=== PATIENT | female | born 1955 | race Caucasian/White ===

== ENCOUNTER → 2019-05-25 09:39 | Outpatient (CLI) | payer OTHER, SELFPAY ==
--- NOTE | 2019-05-25 09:41 | BI_ITS ---
MAMMOGRAPHY - BILATERAL SCREENING REASON FOR EXAM: Female, 63 years old. Routine annual screening examination. PERTINENT HISTORY: Non-contributory. TECHNIQUE: Digital bilateral breast elan (3D mammographic acquisition) in the CC and MLO projections. 2-D mediolateral oblique (MLO) and craniocaudad (CC) views of both breasts were obtained. CAD: Full Field Digital Mammography with Computer Added Detection was performed. COMPARISON: Comparison is made with prior study September 23, 2017 and August 05, 2015. FINDINGS: Breast Composition: The breasts are almost entirely fatty. There are no dominant masses or suspicious calcifications. Stable 5 mm well-defined nodule in the upper outer aspect of the left breast. No other significant abnormalities are identified. There has been no significant change since the prior study. BI/SCREEN MAMM (CAD) W/ELAN BILAT IMPRESSION: Stable bilateral screening mammogram. Correlation with ultrasound of the left breast is recommended for further evaluation. ASSESSMENT CATEGORY: BIRADS Category 0: Incomplete. Need additional imaging evaluation. A letter regarding these results will be sent to the patient by the facility within 30 days. Approximately 10% of breast cancers are not detected by mammography. A normal mammogram should not delay biopsy of a clinically suspicious abnormality. [id number] Electronically Signed: Raza Blandon, at 10:46 EDT , Service support ,
== END ==
PROVIDERS: Family Provider Family Medicine; PCP Family Medicine; Referring Provider Family Medicine; Visit Provider Family Medicine
DX: Z12.31 Encounter for screening mammogram for malignant neoplasm of breast (principal)
CPT/HCPCS: 77063; 77067

== ENCOUNTER → 2019-05-31 14:44 | Outpatient (CLI) | payer OTHER, SELFPAY ==
--- NOTE | 2019-05-31 14:46 | US_ITS ---
STUDY: ULTRASOUND BREAST - LEFT REASON FOR EXAM: Female, 63 years old. Abnormal screening mammogram. TECHNIQUE: Axial and longitudinal images of the LEFT breast were performed with a high resolution ultrasound transducer. COMPARISON: Comparison is made with prior mammogram dated May 25, 2019. FINDINGS: LEFT Breast: The mammographic abnormality corresponds to a 6 mm x 5 mm x 4 mm benign appearing lymph node. This is at the 2:00 position in the breast at 8 cm from nipple. Routine mammographic follow-up is recommended. US/Breast Limited Unilateral IMPRESSION: The mammographic abnormality corresponds to a 6 mm x 5 mm x 4 mm well-defined hypoechoic nodule with a central echogenic hilum in keeping with a lymph node. ASSESSMENT CATEGORY: BIRADS Category 2: Benign. A letter regarding these results will be sent to the patient by the facility within 30 days. Electronically Signed: Raza Blandon, at 13:07 EDT , Service support ,
== END ==
PROVIDERS: Family Provider Family Medicine; PCP Family Medicine; Referring Provider Family Medicine; Visit Provider Family Medicine
DX: N63.21 Unspecified lump in the left breast, upper outer quadrant (principal)
CPT/HCPCS: 76642

== ENCOUNTER → 2020-04-08 | Outpatient (CLI) | payer OTHER, SELFPAY ==
[2020-01-18 09:08] VITALS: BMI 37.7
[2020-04-08 13:04] LABS: T4 Free Direct 1.14 ng/dL (0.76-1.46); Thyroid Stim Hormone (TSH) 0.72 uIU/mL (0.358-3.74)
== END | disposition home or self-care (01) ==
PROVIDERS: PCP Family Medicine; Referring Provider Internal Medicine Endocrinology, Diabetes & Metabolism; Visit Provider Internal Medicine Endocrinology, Diabetes & Metabolism
DX: E03.9 Hypothyroidism, unspecified (principal)
CPT/HCPCS: 36415; 84439; 84443

== ENCOUNTER → 2020-07-03 | Outpatient (CLI) | payer OTHER, SELFPAY ==
[2020-04-17 09:33] VITALS: BMI 37.7
--- NOTE | 2020-07-03 08:16 | BI_ITS ---
MAMMOGRAPHY - BILATERAL SCREENING REASON FOR EXAM: Female, 65 years old. Routine annual screening examination. PERTINENT HISTORY: Non-contributory. TECHNIQUE: Digital bilateral breast elan (3D mammographic acquisition) in the CC and MLO projections. 2-D mediolateral oblique (MLO) and craniocaudad (CC) views of both breasts were obtained. CAD: Full Field Digital Mammography with Computer Added Detection was performed. COMPARISON: Comparison is made with prior study dated 05/25/2019 and 06/24/2017 FINDINGS: Breast Composition: The breasts are almost entirely fatty. There are no dominant masses or suspicious calcifications. Stable 5 mm well-defined nodule in the upper lateral aspect of the left breast. This most likely represents a small intramammary lymph node. No other significant abnormalities are identified. There has been no significant change since the prior study. BI/SCREEN MAMM (CAD) W/ELAN BILAT IMPRESSION: Stable bilateral screening mammogram. Yearly follow-up mammogram recommended. (A) ASSESSMENT CATEGORY: BIRADS Category 2: Benign. A letter regarding these results will be sent to the patient by the facility within 30 days. Approximately 10% of breast cancers are not detected by mammography. A normal mammogram should not delay biopsy of a clinically suspicious abnormality. [id number] Electronically Signed: Raza Blandon, at 9:30 EDT , Service support ,
== END | disposition home or self-care (01) ==
LOC: OPBI 08:13
PROVIDERS: PCP Family Medicine; Referring Provider Family Medicine; Visit Provider Family Medicine
DX: Z12.31 Encounter for screening mammogram for malignant neoplasm of breast (principal)
CPT/HCPCS: 77063; 77067

== ENCOUNTER → 2020-08-21 | Outpatient (CLI) | payer OTHER, SELFPAY ==
[2020-08-21 08:52] VITALS: BMI 34.2
[2020-08-21 12:56] LABS: Vitamin D,25 Hydroxy 62.7 ng/mL
[2020-08-21 13:06] LABS: ALB/GLOB Ratio 0.7 RATIO (0.9-2.4); AST(SGOT) 32 U/L (15-37); Alanine Aminotransfer ALT/SGPT 39 U/L (13-56); Alkaline Phosphatase 94 U/L (45-117); Anion Gap 8 (5-15); BUN 13 mg/dL (7-18); BUN/Creat Ratio 14.7 RATIO (10-20); Chloride 102 mmol/L (98-107); Cholesterol 308 mg/dL (200); Creatinine, Serum 0.88 mg/dL (0.55-1.02); EST Glomerular Filtration Rate 68 mL/min (>60); Est Glom Filt Rate - Afr Amer 82 mL/min (>60); Globulin 4.2 g/dL (2.2-4.2); Glucose 155 mg/dL (74-106); High Density Lipoprotein 45 mg/dL; Potassium 3.6 mmol/L (3.5-5.1); Protein, Total 7.2 g/dL (6.4-8.2); Sodium Level 138 mmol/L (136-145); Thyroid Stim Hormone (TSH) 0.79 uIU/mL (0.358-3.74); Triglycerides 395 mg/dL; Very Low Density Lipoprotein 79 mg/dL (5-40)
[2020-08-21 13:12] LABS: Microalbumin:Creatinine Ratio 13.2 mg/g CRE (<30 mg/g CRE)
== END | disposition home or self-care (01) ==
LOC: BIMLAB 09:44
PROVIDERS: PCP Family Medicine; Referring Provider Internal Medicine Endocrinology, Diabetes & Metabolism; Visit Provider Internal Medicine Endocrinology, Diabetes & Metabolism
DX: E03.9 Hypothyroidism, unspecified (principal); E11.9 Type 2 diabetes mellitus without complications; E55.9 Vitamin D deficiency, unspecified; I10 Essential (primary) hypertension
CPT/HCPCS: 36415; 80053; 80061; 82043; 82306; 82570; 84443

== ENCOUNTER → 2021-07-21 08:50 | Outpatient (CLI) | payer OTHER, SELFPAY ==
[2021-07-21 08:53] LABS: Mucous, Urine 0 SEEN /hpf (<or=2+); Red Blood Cells-Urine 0 SEEN /hpf (0-5); White Blood Cells 0 SEEN /hpf (0-5)
[2021-07-21 12:32] LABS: Color, Urine Yellow (Yellow); Glucose, Dipstick 1000 mg/dl (Normal); Ketone-Dipstick Negative (Negative); Leukocyte Esterase-Dipstick Negative /ul (Negative); Nitrite-Dipstick Negative (Negative); Occult Blood-Urine Negative /ul (Negative); Protein-Dipstick Negative (Negative); Urine Bilirubin Dipstick Negative (Negative); Urine Clarity Clear (Clear); Urine Urobilinogen Normal (Normal)
[2021-07-21 12:53] LABS: Vitamin D,25 Hydroxy 53.8 ng/mL
[2021-07-21 13:01] LABS: ALB/GLOB Ratio 0.7 RATIO (0.9-2.4); AST(SGOT) 22 U/L (15-37); Alanine Aminotransfer ALT/SGPT 34 U/L (13-56); Albumin, Serum 2.9 g/dL (3.2-5.0); Alkaline Phosphatase 81 U/L (45-117); Anion Gap 10 (5-15); BUN 15 mg/dL (7-18); Calcium,Total 9.3 mg/dL (8.5-10.1); Chloride 104 mmol/L (98-107); Cholesterol 325 mg/dL (200); Creatinine, Serum 0.79 mg/dL (0.55-1.02); EST Glomerular Filtration Rate 77 mL/min (>60); Est Glom Filt Rate - Afr Amer 93 mL/min (>60); Globulin 4.1 g/dL (2.2-4.2); Glucose 152 mg/dL (74-106); High Density Lipoprotein 42 mg/dL; Potassium 3.8 mmol/L (3.5-5.1); Sodium Level 140 mmol/L (136-145); T4 Free Direct 1.05 ng/dL (0.76-1.46); Thyroid Stim Hormone (TSH) 0.59 uIU/mL (0.358-3.74); Triglycerides 429 mg/dL
[2021-07-21 13:12] LABS: Bacteria 1+ /hpf (None Seen); Squamous Epithelial Cells - UA 0-5 SEEN /hpf (5-10)
[2021-07-21 13:27] LABS: Microalbumin,Random Urine < 5.0 mg/L (NO RANGE EST.)
== END ==
PROVIDERS: PCP Family Medicine; Referring Provider Internal Medicine Endocrinology, Diabetes & Metabolism; Visit Provider Internal Medicine Endocrinology, Diabetes & Metabolism
DX: E03.9 Hypothyroidism, unspecified (principal); E11.42 Type 2 diabetes mellitus with diabetic polyneuropathy; E78.2 Mixed hyperlipidemia; I10 Essential (primary) hypertension; E55.9 Vitamin D deficiency, unspecified
CPT/HCPCS: 36415; 80053; 80061; 81001; 82043; 82306; 82570; 84439; 84443

== ENCOUNTER → 2021-10-13 09:53 | Outpatient (CLI) | payer OTHER, SELFPAY ==
--- NOTE | 2021-10-13 09:56 | BI_ITS ---
MAMMOGRAPHY - BILATERAL SCREENING REASON FOR EXAM: Female, 66 years old. Routine annual screening examination. PERTINENT HISTORY: Non-contributory. TECHNIQUE: Digital bilateral breast elan (3D mammographic acquisition) in the CC and MLO projections. 2-D mediolateral oblique (MLO) and craniocaudad (CC) views of both breasts were obtained. CAD: Full Field Digital Mammography with Computer Added Detection was performed. COMPARISON: Comparison is made with prior study dated 07/03/2020 and 05/25/2019. FINDINGS: Breast Composition: The breasts are almost entirely fatty. There are no dominant masses or suspicious calcifications. Stable 5 mm well-defined nodule in the upper lateral aspect of the left breast. Prior sonogram of the left breast dated 05/31/2019 demonstrated to be a small lymph node. No other significant abnormalities are identified. There has been no significant change since the prior study. BI/SCRN MAMM (CAD)W/ELAN BILAT IMPRESSION: Stable bilateral screening mammogram. Yearly follow-up mammogram recommended. (A) ASSESSMENT CATEGORY: BIRADS Category 2: Benign. A letter regarding these results will be sent to the patient by the facility within 30 days. Approximately 10% of breast cancers are not detected by mammography. A normal mammogram should not delay biopsy of a clinically suspicious abnormality. [id number] Electronically Signed: Raza Blandon MD at 11:30 EST , Service support ,
== END ==
PROVIDERS: PCP Family Medicine; Referring Provider Family Medicine; Visit Provider Family Medicine
DX: Z12.31 Encounter for screening mammogram for malignant neoplasm of breast (principal)
CPT/HCPCS: 77063; 77067

== ENCOUNTER → 2022-11-26 | Outpatient (CLI) | payer OTHER, SELFPAY ==
--- NOTE | 2022-11-26 08:13 | BI_ITS ---
MAMMOGRAPHY - BILATERAL SCREENING REASON FOR EXAM: Female, 67 years old. Routine annual screening examination. PERTINENT HISTORY: Non-contributory. TECHNIQUE: Digital bilateral breast elan (3D mammographic acquisition) in the CC and MLO projections. 2-D mediolateral oblique (MLO) and craniocaudad (CC) views of both breasts were obtained. CAD: Full Field Digital Mammography with Computer Added Detection was performed. COMPARISON: Comparison is made with prior study dated 10/13/2021 and 07/03/2020. FINDINGS: Breast Composition: The breasts are almost entirely fatty. There are no dominant masses or suspicious calcifications. Stable 5 mm well-defined nodule in the upper lateral aspect of the left breast. This was demonstrated to be a small lymph node on prior sonogram. No other significant abnormalities are identified. There has been no significant change since the prior study. BI/SCRN MAMM (CAD)W/ELAN BILAT IMPRESSION: Stable bilateral screening mammogram. Yearly follow-up mammogram recommended. (A) ASSESSMENT CATEGORY: BIRADS Category 2: Benign. A letter regarding these results will be sent to the patient by the facility within 30 days. Approximately 10% of breast cancers are not detected by mammography. A normal mammogram should not delay biopsy of a clinically suspicious abnormality. [id number] Electronically Signed: Raza Blandon MD at 9:36 EST ,
== END | disposition home or self-care (01) ==
LOC: OPBI 08:11
PROVIDERS: PCP Family Medicine; Referring Provider Registered Nurse; Visit Provider Registered Nurse
DX: Z12.31 Encounter for screening mammogram for malignant neoplasm of breast (principal)
CPT/HCPCS: 77063; 77067

== ENCOUNTER → 2023-12-02 | Outpatient (CLI) | payer OTHER, SELFPAY ==
--- NOTE | 2023-12-02 08:20 | BI_ITS ---
MAMMOGRAPHY - BILATERAL SCREENING REASON FOR EXAM: Female, 68 years old. Routine annual screening examination. PERTINENT HISTORY: Non-contributory. TECHNIQUE: Digital bilateral breast elan (3D mammographic acquisition) in the CC and MLO projections. 2-D mediolateral oblique (MLO) and craniocaudad (CC) views of both breasts were obtained. CAD: Full Field Digital Mammography with Computer Added Detection was performed. COMPARISON: Comparison is made with prior study dated November 26, 2022 and October 13, 2021. FINDINGS: Breast Composition: There are scattered areas of fibroglandular density. There are no dominant masses or suspicious calcifications. Stable 5 mm well-defined nodule upper outer aspect of the left breast. Stable calcified nodule in the central medial portion of the right breast. No other significant abnormalities are identified. There has been no significant change since the prior study. BI/SCRN MAMM (CAD)W/ELAN BILAT IMPRESSION: Stable bilateral screening mammogram. Yearly follow-up mammogram recommended. (A) ASSESSMENT CATEGORY: BIRADS Category 2: Benign. A letter regarding these results will be sent to the patient by the facility within 30 days. Approximately 10% of breast cancers are not detected by mammography. A normal mammogram should not delay biopsy of a clinically suspicious abnormality. [id number] Electronically Signed: Raza Blandon MD at 8:59 EST ,
--- OUTSIDE RECORDS SUMMARY | 2023-12-02 08:48 | XMS RPT_ITS | CCD ---
Author Name Unknown Address [address] [facility] [facility] [address] [place] [address] Organization [facility] Care Team Providers Care Flow Worker Name Role Phone Nilsa Shahid MD Primary Care Provider NILSA SHAHID Primary Care Unavailable NILSA SHAHID Referring Unavailable FATOUMATA LIGHT Referring Unavailable NILSA SHAHID Primary Care Unavailable NILSA SHAHID Primary Care Unavailable NILSA SHAHID Primary Care Unavailable NILSA SHAHID Attending Unavailable SHANTELLE BEAVER Referring Unavailable NILSA SHAHID Primary Care Unavailable BRIAN PAGE Attending Unavailable NILSA SHAHID Attending Unavailable NILSA SHAHID Primary Care Unavailable NILSA SHAHID Attending Unavailable NILSA SHAHID Primary Care Unavailable YANICK MALDONADO Referring Unavailable NILSA SHAHID Primary Care Unavailable NILSA SHAHID Attending Unavailable NILSA SHAHID Primary Care Unavailable SHANTELLE BEAVER Attending Unavailable NILSA SHAHID Primary Care Unavailable NILSA SHAHID Primary Care Unavailable Allergies Allergy Classification Reported Allergen(s) Allergy Type Date of Onset Reaction(s) Facility (20 sources) amLODIPine; Translations: [AMLODIPINE BESYLATE] Drug Allergy 04-03-2014 Cough [facility] Work Phone: (20 sources) Lisinopril; Translations: [LISINOPRIL] Drug Allergy 02-16-2013 Cough [facility] Work Phone: (5 sources) Penicillins; Translations: [PENICILLINS] Propensity to adverse reactions 06-04-2005 Rash [facility] Work Phone: (20 sources) rosuvastatin; Translations: [ROSUVASTATIN] Drug Allergy 05-12-2019 Myalgia [facility] Work Phone: (17 sources) Penicillins Propensity to adverse reactions 06-04-2005 Rash [facility] Work Phone: Medications Current Medications Medication Drug Class(es) Dates Sig (Normalized) Sig (Original) doxycycline hyclate 100 mg oral tablet (1 source) Tetracycline-cla ss Drug Start: 10-07-2023 End: 10-14-2023 take 1 tablet by mouth twice daily doxycycline (VIBRA-TABS) 100 mg tablet Indications: Sinobronchitis Take 1 tablet by mouth two times a day for 7 days. 14 tablet 0 10/07/2023 10/14/2023 Active Completed/Discontinued Medications Medication Drug Class(es) Dates Sig (Normalized) Sig (Original) acetaminophen 325 mg / HYDROcodone bitartrate 5 mg oral tablet (20 sources) Opioid Agonist take 1 tablet by julio th every eight hours as needed HYDROcodone-acetami nophen 5-325 mg per tablet Take 1 tablet by mouth every 8 hours as needed. 0 Active Problems Active Problems Problem Classification Problem Date Documented Da te Episodic/Chronic Adjustment disorders (1 source) Grief finding; Translations: [Adjustment disorder with depressed mood] Chronic Diabetes mellitus without complication (20 sources) Type 2 diabetes mellitus without complication; Translations: [Type 2 diabetes mellitus without complications] Onset: 4 02-23-2021 Chronic Disorders of lipid metabolism (2 sources) Hypertriglyceridemia; Translations: [Pure hyperglyceridemia] Onset: 3 Chronic Esophageal disorders (20 sources) Gastroesophageal reflux disease; Translations: [Gastro-esophageal reflux disease without esophagitis] 06-01-2016 Chronic Essential hypertension (20 sources) Hypertensive disorder; Translations: [Essential (primary) hypertension] Onset: 3 Chronic Gout and other crystal arthropathies (20 sources) Chronic gouty arthritis; Translations: [Idiopathic chronic gout, multiple sites, without tophus (tophi)] Onset: 4 Chronic Immunizations and screening for infectious disease (1 source) Suspected disease caused by 2019-nCoV; Translations: [Suspected COVID-19 virus infection] Episodic Nutritional deficiencies (20 sources) Vitamin D deficiency; Translations: [Vitamin D deficiency, unspecified] Onset: 9 05-12-2019 Chronic Other connective tissue disease (20 sources) Fibromyalgia; Translations: [Fibromyalgia] 06-11-2017 Episodic Other gastrointestinal disorders (3 sources) Stool DNA-based colorectal cancer screening positive; Translations: [Other fecal abnormalities] Episodic Other lower respiratory disease (1 source) Cough; Translations: [Acute cough] 09-14-2023 Episodic Other nutritional; endocrine; and metabolic disorders (11 sources) Body mass index 30+ - obesity; Translations: [Body mass index (BMI) 39.0-39.9, adult] Onset: 4 04-03-2014 Chronic Other nutritional; endocrine; and metabolic disorders (1 source) Obesity; Translations: [Obesity, unspecified] Chronic Other nutritional; endocrine; and metabolic disorders (4 sources) Obese class II; Translations: [Obesity, unspecified] Onset: 3 09-05-2023 Chronic Other nutritional; endocrine; and metabolic disorders (1 source) Obesity, unspecified; Translations: [Class 2 obesity in adult, unspecified BMI, unspecified obesity type, unspecified whether serious comorbidity present] Onset: 3 Chronic Other screening for suspected conditions (not mental disorders or infectious disease) (4 sources) Patient encounter status; Translations: [Encounter for screening for malignant neoplasm of colon] Episodic Other upper respiratory infections (1 source) Chronic sinusitis; Translations: [Chronic sinusitis, unspecified] 10-07-2023 Chronic Other upper respiratory infections (1 source) Sore throat symptom; Translations: [Acute pharyngitis, unspecified] 09-14-2023 Episodic Residual codes; unclassified (1 source) Postmenopausal state; Translations: [Asymptomatic menopausal state] Episodic Thyroid disorders (20 sources) Hypothyroidism; Translations: [Hypothyroidism, unspecified] Onset: 7 08-12-2015 Chronic Unclassified (1 source) Acute cough; Translations: [Acute cough] Onset: 3 Past or Other Problems Problem Classification Problem Date Documented Da te Episodic/Chronic Fluid and electrolyte disorders (20 sources) Hypokalemia; Translations: [Hypokalemia] Onset: 07-21-2019 07-21-2019 Episodic Other connective tissue disease (20 sources) Calcaneal spur; Translations: [Calcaneal spur, unspecified foot] Onset: 01-27-2012 01-27-2012 Episodic Other gastrointestinal disorders (1 source) Other fecal abnormalities; Translations: [Positive colorectal cancer screening using Cologuard test] Onset: 03-07-2023 Episodic Residual codes; unclassified (1 source) Other specified personal risk factors, not elsewhere classified; Translations: [23-polyvalent pneumococcal polysaccharide vaccine indication of diabetes in patient 6 to 64 years of age (HCC)] Onset: 11-25-2022 Episodic Results Test Name Value Interpretation Reference Range Facil ity Vital Signs Date Time Vital Sign Value Performing Clinician Shelby kuo 10-07-2023 17:05-0500 Body temperature 99.3 [degF] Melonie Praisler-Wood WAY INSPECTOR.AGRICULTURAL EQUIPMENT SALES ENGINEER Work Phone: [facility] 10-07-2023 17:05-0500 Body weight 100.97 kg Melonie Praisler-Wood WAY INSPECTOR.AGRICULTURAL EQUIPMENT SALES ENGINEER Work Phone: [facility] 10-07-2023 17:05-0500 Diastolic blood pressure 73 mm[Hg] Melonie Praisler-Wood WAY INSPECTOR.AGRICULTURAL EQUIPMENT SALES ENGINEER Work Phone: [facility] 10-07-2023 17:05-0500 Heart rate 95 /min Melonie Praisler-Wood WAY INSPECTOR.AGRICULTURAL EQUIPMENT SALES ENGINEER Work Phone: [facility] 10-07-2023 17:05-0500 Respiratory rate 18 /min Melonie Praisler-Wood WAY INSPECTOR.AGRICULTURAL EQUIPMENT SALES ENGINEER Work Phone: [facility] 10-07-2023 17:05-0500 SaO2% (BldA) [Mass fraction] 97 % Melonie Praisler-Wood WAY INSPECTOR.AGRICULTURAL EQUIPMENT SALES ENGINEER Work Phone: [facility] 10-07-2023 17:05-0500 Systolic blood pressure 155 mm[Hg] Melonie Praisler-Wood WAY INSPECTOR.AGRICULTURAL EQUIPMENT SALES ENGINEER Work Phone: [facility] 09-14-2023 10:28-0500 Body temperature 98.1 [degF] Maria Antonia Morris WAY INSPECTOR.AGRICULTURAL EQUIPMENT SALES ENGINEER Work Phone: [facility] 09-14-2023 10:28-0500 Body weight 101.[address] INSPECTOR.AGRICULTURAL EQUIPMENT SALES ENGINEER Work Phone: [facility] 09-14-2023 10:28-0500 Diastolic blood pressure 74 mm[Hg] Maria Antonia Morris WAY INSPECTOR.AGRICULTURAL EQUIPMENT SALES ENGINEER Work Phone: [facility] 09-14-2023 10:28-0500 Heart rate 97 /min Maria Antonia Morris WAY INSPECTOR.AGRICULTURAL EQUIPMENT SALES ENGINEER Work Phone: [facility] 09-14-2023 10:28-0500 SaO2% (BldA) [Mass fraction] 98 % Maria Antonia Morris WAY INSPECTOR.AGRICULTURAL EQUIPMENT SALES ENGINEER Work Phone: [facility] 09-14-2023 10:28-0500 Systolic blood pressure 138 mm[Hg] Maria Antonia Morris WAY INSPECTOR.AGRICULTURAL EQUIPMENT SALES ENGINEER Work Phone: [facility] 09-05-2023 09:10-0500 Diastolic blood pressure 70 mm[Hg] Nilsa Shahid MD Work Phone: [facility] 09-05-2023 09:10-0500 Systolic blood pressure 132 mm[Hg] Nilsa Shahid MD Work Phone: [facility] 09-05-2023 08:38-0500 Body weight 101.61 kg Nilsa Shahid MD Work Phone: [facility] 09-05-2023 08:38-0500 Heart rate 78 /min Nilsa Shahid MD Work Phone: [facility] 09-05-2023 08:38-0500 SaO2% (BldA) [Mass fraction] 98 % Nilsa Shahid MD Work Phone: [facility] 03-07-2023 08:19-0400 Body height 170.2 cm Brian Kaylee PA-C Work Phone: [facility] 03-07-2023 08:19-0400 Body temperature 97.2 [degF] Brian Kaylee PA-C Work Phone: [facility] 03-07-2023 08:19-0400 Body weight 97.34 kg Brian Kaylee PA-C Work Phone: [facility] 03-07-2023 08:19-0400 Diastolic blood pressure 76 mm[Hg] Brian Kaylee PA-C Work Phone: [facility] 03-07-2023 08:19-0400 Heart rate 82 /min Brian Ramirezf PA-C Work Phone: [facility] 03-07-2023 08:19-0400 SaO2% (BldA) [Mass fraction] 96 % Brian Ramirezf PA-C Work Phone: [facility] 03-07-2023 08:19-0400 Systolic blood pressure 132 mm[Hg] Brian Ramirezf PA-C Work Phone: [facility] 03-02-2023 08:30-0400 Body height 170.2 cm Nilsa Shahid MD Work Phone: [facility] 03-02-2023 08:30-0400 Body weight 97.34 kg Nilsa Shahid MD Work Phone: [facility] 03-02-2023 08:30-0400 Diastolic blood pressure 82 mm[Hg] Nilsa Shahid MD Work Phone: [facility] 03-02-2023 08:30-0400 Heart rate 78 /min Nilsa Shahid MD Work Phone: [facility] 03-02-2023 08:30-0400 Systolic blood pressure 142 mm[Hg] Nilsa Shahid MD Work Phone: [facility] 12-01-2022 08:01-0500 Body weight 97.52 kg Nilsa Shahid MD Work Phone: [facility] 12-01-2022 08:01-0500 Diastolic blood pressure 78 mm[Hg] Nilsa Shahid MD Work Phone: [facility] 12-01-2022 08:01-0500 Heart rate 77 /min Nilsa Shahid MD Work Phone: [facility] 12-01-2022 08:01-0500 Respiratory rate 16 /min Nilsa Shahid MD Work Phone: [facility] 12-01-2022 08:01-0500 SaO2% (BldA) [Mass fraction] 98 % Nilsa Shahid MD Work Phone: [facility] 12-01-2022 08:01-0500 Systolic blood pressure 130 mm[Hg] Nilsa Shahid MD Work Phone: [facility] 10-26-2022 09:06-0500 Body height 171.[address] INSPECTOR.AGRICULTURAL EQUIPMENT SALES ENGINEER Work Phone: [facility] 10-26-2022 09:06-0500 Body weight 97.[address] INSPECTOR.AGRICULTURAL EQUIPMENT SALES ENGINEER Work Phone: [facility] 10-26-2022 09:06-0500 Diastolic blood pressure 90 mm[Hg] Shantelle Haagen WAY INSPECTOR.AGRICULTURAL EQUIPMENT SALES ENGINEER Work Phone: [facility] 10-26-2022 09:06-0500 Heart rate 94 /min Shantelle Antonagen WAY INSPECTOR.AGRICULTURAL EQUIPMENT SALES ENGINEER Work Phone: [facility] 10-26-2022 09:06-0500 Respiratory rate 18 /min Shantelle Antonagen WAY INSPECTOR.AGRICULTURAL EQUIPMENT SALES ENGINEER Work Phone: [facility] 10-26-2022 09:06-0500 SaO2% (BldA) [Mass fraction] 97 % Shantelle Beaver WAY INSPECTOR.AGRICULTURAL EQUIPMENT SALES ENGINEER Work Phone: [facility] 10-26-2022 09:06-0500 Systolic blood pressure 148 mm[Hg] Shantelle Antonagen WAY INSPECTOR.AGRICULTURAL EQUIPMENT SALES ENGINEER Work Phone: [facility] 03-10-2022 17:48-0400 Body temperature 99.1 [degF] Luz Maria Athy PA-C Work Phone: [facility] 03-10-2022 17:48-0400 Body weight 97.07 kg Luz Maria Athy PA-C Work Phone: [facility] 03-10-2022 17:48-0400 Diastolic blood pressure 72 mm[Hg] Luz Maria Athy PA-C Work Phone: [facility] 03-10-2022 17:48-0400 Heart rate 101 /min Luz Maria Athy PA-C Work Phone: [facility] 03-10-2022 17:48-0400 Respiratory rate 22 /min Luz Maria Lopez PA-C Work Phone: [facility] 03-10-2022 17:48-0400 SaO2% (BldA) [Mass fraction] 98 % Luz Maria Lopez PA-C Work Phone: [facility] 03-10-2022 17:48-0400 Systolic blood pressure 122 mm[Hg] Luz Maria Jessica NIETO Work Phone: [facility] Encounters Encounter Date Encounter Type Care Provider Facility Start: 10-07-2023 End: 10-07-2023 ambulatory NILSA SHAHID Facility:[facility] Start: 10-07-2023 End: 10-07-2023 Patient encounter procedure Melonie Jose APRN.ABDIRIZAK Work Phone: [facility] Procedures Date Procedure Procedure Detail Performing Clinician Start: 09-14-2023 STREP A MOLECULAR (POC) Maria Antonia Morris APRN.AGRICULTURAL EQUIPMENT SALES ENGINEER Work Phone: Start: 02-22-2023 Hemoglobin A1c/Hemoglobin.total in Blood Thanh Maldonado Work Phone: Start: 11-26-2022 Mammography Nilsa Acosta MD Work Phone: Start: 10-13-2021 Mammography Nilsa Acosta MD Work Phone: Start: 08-22-2021 Adult depression scr eening assessment Nilsa Shahid MD Work Phone: Plan of Treatment Date Care Activity Detail Author Start: 11-06-2025 COLOGUARD (FIT-DNA) COLOGUARD (FIT-D NA) [facility] Start: 11-06-2025 COLORECTAL CANCER SCREENING COLORECTAL CANCER SCREENING [facility] Start: 11-06-2025 Screening for malign ant neoplasm of colon [facility] Start: 09-30-2024 Hepatitis B screening Urine Al bumin:Creatinine Ratio [facility] Start: 09-05-2024 Annual PCP Team Student Financial Services Counselor gatito Disease Visit Annual PCP Team Chronic Disease Visit [facility] Start: 09-05-2024 Covid-19 Vaccine () Covid-19 Vaccine () [facility] Immunizations Immunization Date Immunization Notes Care Provider Yari godwin 08-05-2023 influenza, high dose seasonal, preservative-free Nilsa Shahid MD Work Phone: [facility] 09-22-2022 influenza, seasonal, injectable Shantelle Haarti WAY INSPECTOR.AGRICULTURAL EQUIPMENT SALES ENGINEER Work Phone: [facility] Work Phone: 09-22-2022 influenza virus vaccine, unspecified formulation NA Abebe NIETO Work Phone: [facility] 02-17-2022 COVID-19 original vaccine, full dose, monovalent (MODERNA) Nilsa Shahid MD Work Phone: [facility] 11-01-2021 influenza, injectabl e, quadrivalent, preservative free Shantelle Beaver WAY INSPECTOR.AGRICULTURAL EQUIPMENT SALES ENGINEER Work Phone: [facility] 08-27-2021 COVID-19 original vaccine, full dose, monovalent (MODERNA) Nilsa Shahid MD Work Phone: [facility] 11-17-2020 COVID-19 vaccine, fu ll dose (MODERNA) Nilsa Shahid MD Work Phone: [facility] 10-20-2020 COVID-19 vaccine, fu ll dose (MODERNA) Nilsa Shahid MD Work Phone: [facility] 08-18-2020 influenza, high-dose , quadrivalent vaccine (FLUZONE HIGH DOSE QUADRIVALENT) Nilsa Shahid MD Work Phone: [facility] 09-07-2019 influenza, high dose seasonal, preservative-free Nilsa Shahid MD Work Phone: [facility] 08-08-2018 influenza, injectabl e, quadrivalent, contains preservative Nilsa Shahid MD Work Phone: [facility] Work Phone: 07-22-2018 influenza, injectabl e, quadrivalent, preservative free Nilsa Shahid MD Work Phone: [facility] 08-20-2015 influenza, seasonal, injectable Nilsa Shahid MD Work Phone: [facility] Work Phone: 07-24-2014 influenza, seasonal, injectable Nilsa Shahid MD Work Phone: [facility] 08-24-2012 influenza virus vaccine, unspecified formulation Nilsa Shahid MD Work Phone: [facility] 07-24-2011 influenza virus vaccine, unspecified formulation Nilsa Shahid MD Work Phone: [facility] 09-10-2009 novel [id number], preservative-free, injectable Nilsa Shahid MD Work Phone: [facility] 07-23-2005 diphtheria and tetan us toxoids, adsorbed for pediatric use Nilsa Shahid MD Work Phone: [facility] Work Phone: Payers Date Payer Category Payer Unknown MMO MMO [employer] [id number] 2019-Present [phone] [address] [place] [address] O [id number] 2019 Unknown [id number] 2019 Unknown [id number] Social History Date Type Detail Facility Start: 05-26-2011 End: 10-26-2022 Tobacco smoking status NHIS Ex-smoker [facility] End: 10-24-1986 History of tobacco use Current smoker [facility] End: 10-24-1986 History of tobacco use Cigarette Smoker [facility] Start: 08-28-2021 End: 10-07-2023 Alcohol intake Current non-drinker of alcohol (finding) [facility] Start: 08-16-2020 End: 02-20-2021 History SDOH Alcohol Frequency 1 [facility] Start: 08-16-2020 History SDOH Alcohol Std Drinks 98 [facility] Start: 08-16-2020 History SDOH Social Connections Phone 5 [facility] Start: 08-16-2020 History SDOH Social Connections Get Together 4 [facility] Start: 08-16-2020 History SDOH Social Connections Living 3 [facility] Start: 08-16-2020 End: 08-22-2021 History SDOH Transport Med 2 [facility] Start: 08-15-2020 Education 14 [facility] Start: 1955 Sex Assigned At Not on file C [facility] Start: 02-28-2022 End: 03-10-2022 Exposure to SARS-CoV-2 (event) Yes [facility] Start: 05-26-2011 End: 03-02-2023 Cigarettes smoked current (pack per day) - Reported 1 [facility] Work Phone: Start: 05-26-2011 End: 10-26-2022 Tobacco use and exposure Smokeless tobacco non-user [facility] Start: 03-02-2023 End: 03-07-2023 Tobacco use panel [facility] Work Phone: Adult Depression Screening Assessment 0 [facility] Work Phone: Start: 09-08-2020 Gender identity Identifies as female gender (finding) [facility] Start: 09-08-2020 Sexual orientation Heterosexual (fin william) [facility] Are you now , , , , never or living with a partner? [facility] How often to you hav e a drink containing alcohol? Never [facility] Do you feel stress - tense, restless, nervous, or anxious, or unable to sleep at night because your mind is troubled all the time - these days [OSQ] Not at all [facility] (I/We) worried wheth er (my/our) food would run out before (I/we) got money to buy more. Never true [facility] In the past 12 month s, was there a time when you were not able to pay the mortgage or rent on time? No [facility] Are you now , , , , never or living with a partner? Refused [facility] (I/We) worried wheth er (my/our) food would run out before (I/we) got money to buy more. DK or Refused [facility] Medical Equipment Procedure Code Equipment Code Equipment Origin al Text Equipment Identifier Dates Test blood sugar (s) 2 times daily. Dx: Type 2 DM - Controlled E11.9 Insulin: No Start: 02-21-2020 Clinical Notes 07-05-2014 to 10-07-2023 Melonie Jose APRN.AGRICULTURAL EQUIPMENT SALES ENGINEER - 10/07/2023 5:18 PM ESTPatient InstructionsFatoumata Light APRN.AGRICULTURAL EQUIPMENT SALES ENGINEER - 09/14/2023 10:37 AM Nilsa Tran MD - 09/05/2023 8:35 AM ESTPatient Instructions Note Date & Type Note Facility 10-07-2023 Note HNO ID: [id number] Author: Melonie Jose APRN.AGRICULTURAL EQUIPMENT SALES ENGINEER Service: ? Author Type: Nurse Practitioner Type: Progress Notes Filed: 10/07/2023 5:47 PM Note Text: Subjective Cough Associated symptoms include sore throat, myalgias and shortness of breath. Pertinent negatives include no chest pain, no chills and no ear pain. Evi Kamara is a 68 year old female who presents with a week of coughing, sinus congestion and drainage, headache, sore throat, body aches. She denies shortness of breath but her says she sounds short of breath. She has not had a fever. Cough is productive. She has used cough syrup at home. No known sick contacts. Review of Systems Constitutional: Negative for chills and fever. HENT: Positive for congestion and sore throat. Negative for ear pain. Respiratory: Positive for cough, sputum production and shortness of breath. Cardiovascular: Negative for chest pain. Musculoskeletal: Positive for myalgias. BP 155/73 Pulse 95 Temp 37.4 ?C (99.3 ?F) Resp 18 Wt 101 kg (222 lb 9.6 oz) SpO2 97% BMI 34.86 kg/m? PAST MEDICAL HISTORY Diagnosis Date Dysmetabolic syndrome X Esophageal reflux Myalgia and myositis, unspecified Other and unspecified hyperlipidemia Positive colorectal cancer screening using Cologuard test Unspecified essential hypertension Unspecified hypothyroidism PAST SURGICAL HISTORY Procedure Laterality Date ARTHRP KNE CONDYLEANDPLATU MEDIALANDLAT COMPARTMENTS 05/04/2012 Knee replacement, total right - [facility]. ARTHRP KNE CONDYLEANDPLATU MEDIALANDLAT COMPARTMENTS 01/2012 left HYSTERECTOMY HX 1988 Hysterectomy, MATTHEW, ovaries retained, cervical CA LAPS SURG CHOLECYSTECTOMY W/CHOLANGIOGRAPHY 07/09/14 normal IOC NEUROPLASTY AND/TRANSPOS MEDIAN NRV CARPAL TUNNE Carpal tunnel decomp, bilateral TONSILLECTOMY PRIMARY/SECONDARY Tonsillectomy ALLERGIES Crestor [Rosuvastatin], Lisinopril, Norvasc [Amlodipine Besylate], and Penicillins MEDICATIONS doxycycline (VIBRA-TABS) 100 mg tablet Take 1 tablet by mouth two times a day for 7 days. predniSONE (DELTASONE) 20 mg tablet Take 2 tablets by mouth once daily for 4 days. Take daily with food. albuterol HFA (PROVENTIL HFA, VENTOLIN HFA) 90 mcg/actuation inhaler Inhale 2 Puffs as instructed every 4 hours as needed for wheezing/shortness of breath. Inhalational Spacing Device 1 Device one time only for 1 dose. Iagsjyjxbofsmyb-[id number] (BROMFED DM) 2-30-10 mg/5 mL syrup Take 5 mL by mouth four times a day as needed. TRULICITY 4.5 mg/0.5 mL pen injector Inject 4.5 mg subcutaneously one time a week. glimepiride (AMARYL) 2 mg tablet Take 1 tablet by mouth every 12 hours. omeprazole (PRILOSEC) 20 mg capsule Take 1 capsule by mouth daily before breakfast. 1/2 hr before meal. allopurinol (ZYLOPRIM) 100 mg tablet Take 2 tablets by mouth once daily. ergocalciferol 50,000 unit capsule (VITAMIN D2, DRISDOL) Take 1 capsule by mouth one time a week. metoprolol succinate ER (TOPROL XL) 100 mg Take 1 tablet by mouth once daily. losartan (COZAAR) 50 mg tablet Take 1.5 tablets by mouth once daily. rosuvastatin (CRESTOR) 10 mg tablet Take 10 mg by mouth once daily. polyethylene glycol 3350 (MIRALAX, GLYCOLAX) 17 gram/dose powder Use as directed for Miralax / Gatorade Bowel Prep Kit levothyroxine (SYNTHROID) 125 mcg tablet Take 125 mcg by mouth once daily. ezetimibe (ZETIA) 10 mg tablet Take 10 mg by mouth once daily. blood sugar diagnostic (ACCU-CHEK DADA PLUS TEST STRP) test strip Test blood sugar(s) 2 times daily. Dx: Type 2 DM - Controlled E11.9 Insulin: No Blood-Glucose Meter (ACCU-CHEK DADA PLUS METER) Dispense One meter. Patient is testing blood sugar twice daily. Is not using insulin. DX E11.9 Lancets (ACCU-CHEK SOFTCLIX LANCETS) lancets Test blood sugar(s) 2 times daily. Dx: Type 2 DM - Controlled E11.9 Insulin: No COMPOUNDED PRESCRIPTION Calcium 1000mg daily HYDROcodone-acetaminophen 5-325 mg per tablet Take 1 tablet by mouth every 8 hours as needed. clonazePAM (KLONOPIN) 1 mg tablet Take 1 mg by mouth once daily. ZANAFLEX 4 MG CAP nightly FAMILY HISTORY Problem Relation Age of Onset Lipids Mother Lipids Father Hypertension Mother Social History Tobacco Use Smoking status: Former Packs/day: 1.00 Years: 15.00 Additional pack years: 0.00 Total pack years: 15.00 Types: Cigarettes Quit date: 10/24/1986 Years since quittin.9 Smokeless tobacco: Never Vaping Use Vaping Use: Never used Substance Use Topics Alcohol use: No Drug use: No Objective Physical Exam Vitals and nursing note reviewed. Constitutional: Appearance: Normal appearance. HENT: Right Ear: Tympanic membrane, ear canal and external ear normal. Left Ear: Tympanic membrane, ear canal and external ear normal. Nose: Mucosal edema, congestion and rhinorrhea present. Mouth/Throat: Mouth: Mucous membranes are moist. Pharynx: Orophar (more content not included)... [facility] 10-07-2023 History of Present illness Narrative Subjective Cough Associated symptoms include sore throat, myalgias and shortness of breath. Pertinent negatives include no chest pain, no chills and no ear pain. Evi Kamara is a 68 year old female who presents with a week of coughing, sinus congestion and drainage, headache, sore throat, body aches. She denies shortness of breath but her says she sounds short of breath. She has not had a fever. Cough is productive. She has used cough syrup at home. No known sick contacts. Review of Systems Constitutional: Negative for chills and fever. HENT: Positive for congestion and sore throat. Negative for ear pain. Respiratory: Positive for cough, sputum production and shortness of breath. Cardiovascular: Negative for chest pain. Musculoskeletal: Positive for myalgias. BP 155/73 Pulse 95 Temp 37.4 C (99.3 F) Resp 18 Wt 101 kg (222 lb 9.6 oz) SpO2 97% BMI 34.86 kg/m PAST MEDICAL HISTORY Diagnosis Date Dysmetabolic syndrome X Esophageal reflux Myalgia and myositis, unspecified Other and unspecified hyperlipidemia Positive colorectal cancer screening using Cologuard test Unspecified essential hypertension Unspecified hypothyroidism PAST SURGICAL HISTORY Procedure Laterality Date ARTHRP KNE CONDYLE&PLATU MEDIAL&LAT COMPARTMENTS 05/04/2012 Knee replacement, total right - [facility]. ARTHRP KNE CONDYLE&PLATU MEDIAL&LAT COMPARTMENTS 01/2012 left HYSTERECTOMY HX 1988 Hysterectomy, MATTHEW, ovaries retained, cervical CA LAPS SURG CHOLECYSTECTOMY W/CHOLANGIOGRAPHY 07/09/14 normal IOC NEUROPLASTY &/TRANSPOS MEDIAN NRV CARPAL TUNNE Carpal tunnel decomp, bilateral TONSILLECTOMY PRIMARY/SECONDARY <AGE 12 Tonsillectomy ALLERGIES Crestor [Rosuvastatin], Lisinopril, Norvasc [Amlodipine Besylate], and Penicillins MEDICATIONS doxycycline (VIBRA-TABS) 100 mg tablet Take 1 tablet by mouth two times a day for 7 days. predniSONE (DELTASONE) 20 mg tablet Take 2 tablets by mouth once daily for 4 days. Take daily with food. albuterol HFA (PROVENTIL HFA, VENTOLIN HFA) 90 mcg/actuation inhaler Inhale 2 Puffs as instructed every 4 hours as needed for wheezing/shortness of breath. Inhalational Spacing Device 1 Device one time only for 1 dose. Ktceqvtlbhayhvm-Gtctdysxp-[place] (BROMFED DM) 2-30-10 mg/5 mL syrup Take 5 mL by mouth four times a day as needed. TRULICITY 4.5 mg/0.5 mL pen injector Inject 4.5 mg subcutaneously one time a week. glimepiride (AMARYL) 2 mg tablet Take 1 tablet by mouth every 12 hours. omeprazole (PRILOSEC) 20 mg capsule Take 1 capsule by mouth daily before breakfast. 1/2 hr before meal. allopurinol (ZYLOPRIM) 100 mg tablet Take 2 tablets by mouth once daily. ergocalciferol 50,000 unit capsule (VITAMIN D2, DRISDOL) Take 1 capsule by mouth one time a week. metoprolol succinate ER (TOPROL XL) 100 mg Take 1 tablet by mouth once daily. losartan (COZAAR) 50 mg tablet Take 1.5 tablets by mouth once daily. rosuvastatin (CRESTOR) 10 mg tablet Take 10 mg by mouth once daily. polyethylene glycol 3350 (MIRALAX, GLYCOLAX) 17 gram/dose powder Use as directed for Miralax / Gatorade Bowel Prep Kit levothyroxine (SYNTHROID) 125 mcg tablet Take 125 mcg by mouth once daily. ezetimibe (ZETIA) 10 mg tablet Take 10 mg by mouth once daily. blood sugar diagnostic (ACCU-CHEK DADA PLUS TEST STRP) test strip Test blood sugar(s) 2 times daily. Dx: Type 2 DM - Controlled E11.9 Insulin: No Blood-Glucose Meter (ACCU-CHEK DADA PLUS METER) Dispense One meter. Patient is testing blood sugar twice daily. Is not using insulin. DX E11.9 Lancets (ACCU-CHEK SOFTCLIX LANCETS) lancets Test blood sugar(s) 2 times daily. Dx: Type 2 DM - Controlled E11.9 Insulin: No COMPOUNDED PRESCRIPTION Calcium 1000mg daily HYDROcodone-acetaminophen 5-325 mg per tablet Take 1 tablet by mouth every 8 hours as needed. clonazePAM (KLONOPIN) 1 mg tablet Take 1 mg by mouth once daily. ZANAFLEX 4 MG CAP nightly FAMILY HISTORY Problem Relation Age of Onset Lipids Mother Lipids Father Hypertension Mother Social History Tobacco Use Smoking status: Former Packs/day: 1.00 Years: 15.00 Additional pack years: 0.00 Total pack years: 15.00 Types: Cigarettes Quit date: 10/24/1986 Years since quittin.9 Smokeless tobacco: Never Vaping Use Vaping Use: Never used Substance Use Topics Alcohol use: No Drug use: No Objective Physical Exam Vitals and nursing note reviewed. Constitutional: Appearance: Normal appearance. HENT: Right Ear: Tympanic membrane, ear canal and external ear normal. Left Ear: Tympanic membrane, ear canal and external ear normal. Nose: Mucosal edema, congestion and rhinorrhea present. Mouth/Throat: Mouth: Mucous membranes are moist. Pharynx: Oropharynx is clear. Uvula midline. No oropharyngeal exudate or posterior oropharyngeal erythema. Cardiovascular: Rate and Rhythm: Normal rate and regular rhythm. Heart sounds: Normal heart sounds. Pulmonary: Effort: Pulmonary effort is normal. No respiratory distress. Breath sounds: Wheezing (few, scattered) present. No rales. Musculoskeletal: Cervical back: Neck supple. Lymphadenopathy: Cervical: No cervical adenopathy. Skin: General: Skin is warm and dry. Findings: No erythema or rash. Neurological: Mental Status: She is alert. ASSESSMENT/PLAN: 1. Sinobronchitis - ICD9: 473.9, 490, ICD10: J32.9, J40 - Will begin treatment with as per antibiotic as written, see orders - Supportive care with plenty of fluids, rest, and analgesia prn. - DOXYCYCLINE HYCLATE 100 MG TABLET - PREDNISONE 20 MG TABLET - ALBUTEROL SULFATE HFA 90 MCG/ACTUATION AEROSOL INHALER - INHALATIONAL SPACING DEVICE -offered COVID testing, patient declined. - Follow-up with your PCP in 3-5 days if symptoms have not improved or sooner if symptoms worsen - Discussed red flags and need for immediate medical evaluation if any occur. - Discussed supportive care treatment with fluids, rest and analgesia. - Discussed expected course of illness Melonie Jose APRN.CNP documented in this encounter [facility] 10-07-2023 Instructions Melonie Jose APRN.ABDIRIZAK - 10/07/2023 5:17 PM EST ASSESSMENT/PLAN: 1. Sinobronchitis - ICD9: 473.9, 490, ICD10: J32.9, J40 - Will begin treatment with as per antibiotic as written, see orders - Supportive care with plenty of fluids, rest, and analgesia prn. - DOXYCYCLINE HYCLATE 100 MG TABLET - PREDNISONE 20 MG TABLET - ALBUTEROL SULFATE HFA 90 MCG/ACTUATION AEROSOL INHALER - INHALATIONAL SPACING DEVICE -offered COVID testing, patient declined. - Follow-up with your PCP in 3-5 days if symptoms have not improved or sooner if symptoms worsen - Discussed red flags and need for immediate medical evaluation if any occur. - Discussed supportive care treatment with fluids, rest and analgesia. - Discussed expected course of illness Melonie Jose APRN.CNP ACUTE BRONCHITIS: You have acute bronchitis. This means the airway passages in your lungs are inflamed. Bronchitis may be caused by viruses or bacteria. Inhaling cigarette smoke will always make it worse. Exposure to irritating chemicals or second hand smoke as well as allergies can contribute to bronchitis. Repeat episodes of bronchitis may cause lifelong lung problems. Acute bronchitis is usually treated with rest, fluids, cough medicine, and possibly antibiotics or inhaled medicine to open up the small airways. It is very important that you avoid smoke and drink increased amounts of fluids. A cool air vaporizer can help thin bronchial secretions. This makes it easier to cough and clear your chest. If you are a cigarette smoker, consider using nicotine gum or skin patches to help you withdraw. Recovery from bronchitis is often slow, but you should start feeling better after 2-3 days of treatment. Please call your doctor or return here if you have any of the following symptoms: Increased fever, chills, or chest pain. Severe shortness of breath or bloody sputum. Do not improve after 3 days of proper treatment. documented in this encounter [facility] 09-14-2023 Note HNO ID: [id number] Author: Izabela Centeno RT(R) Service: ? Author Type: Faculty Member Type: Progress Notes Filed: 09/14/2023 10:59 AM Note Text: Radiology Service Progress Note PATIENT NAME: Evi Kamara DATE OF SERVICE: September 14, 2023 TIME: 10:49 AM PATIENT IDENTITY VERIFICATION COMPLETED USING TWO (2) IDENTIFIERS: Name and Date of confirmed by patient verbally. FALL SCREENING: Has the patient had 2 falls in the last year or 1 fall with injury or currently using an Ambulatory Assistive Device (Walker, Cane, Wheelchair, Crutches, etc.)? No PATIENT GENDER DATA: Female. status: : No status: NO. PATIENT RELEVANT IMPLANT DATA REVIEWED: Yes RADIOLOGY DEPARTMENT: General X-ray: Exam(s) Completed: Chest X-Ray PERIPHERAL IV DATA: Not applicable SIGNED BY: RT Lalita(R) September 14, 2023 10:[address] [facility] 09-14-2023 Note HNO ID: [id number] Author: Fatoumata Light APRN.AGRICULTURAL EQUIPMENT SALES ENGINEER Service: ? Author Type: Nurse Practitioner Type: Progress Notes Filed: 09/14/2023 11:19 AM Note Text: CC: Patient presents with: Sore Throat: Cough and congestion x1 week. HPI: Evi Kamara is a 68 year old female who presents to the office with complaint of head congestion, cough, nonproductive, and sore throat for a week. Symptoms are worsening Associated symptoms includes sore throat and nasal congestion. Denies fever, nausea, vomiting , and diarrhea. Treatments tried include nothing so far. with no relief of symptoms. Sick contacts: unknown. History of asthma, frequent episodes of bronchitis, chronic bronchitis, bronchiectasis or COPD: No Smoker: No Seasonal/environmental allergies: No The ROS is otherwise negative. The patient's pmh, medications, allergies, and past visits are reviewed. PHYSICAL EXAM: BP 138/74 Pulse 97 Temp 36.7 ?C (98.1 ?F) Wt 101.5 kg (223 lb 12.8 oz) SpO2 98% BMI 35.05 kg/m? General appearance: alert, cooperative, pleasant, in no acute distress Head: Normocephalic Eyes: EOM's intact, conjunctiva pink and moist, no icterus, sclera white, non-injected Ears: Right ear: External ear/canal- Normal, TM - clear with good landmarks. Left ear: External ear/canal- Normal, TM - clear with good landmarks Oropharynx:moist without lesions, No erythema, exudates or tonsillar hypertrophy. Heart: Negative. RRR without obvious murmur, gallop, or rubs. No ectopy. Lungs: clear to auscultation, without rales or wheeze, good air exchange PAST MEDICAL HISTORY Diagnosis Date Dysmetabolic syndrome X Esophageal reflux Myalgia and myositis, unspecified Other and unspecified hyperlipidemia Positive colorectal cancer screening using Cologuard test Unspecified essential hypertension Unspecified hypothyroidism PAST SURGICAL HISTORY Procedure Laterality Date ARTHRP KNE CONDYLEANDPLATU MEDIALANDLAT COMPARTMENTS 05/04/2012 Knee replacement, total right - [facility]. ARTHRP KNE CONDYLEANDPLATU MEDIALANDLAT COMPARTMENTS 01/2012 left HYSTERECTOMY HX 1988 Hysterectomy, MATTHEW, ovaries retained, cervical CA LAPS SURG CHOLECYSTECTOMY W/CHOLANGIOGRAPHY 07/09/14 normal IOC NEUROPLASTY AND/TRANSPOS MEDIAN NRV CARPAL TUNNE Carpal tunnel decomp, bilateral TONSILLECTOMY PRIMARY/SECONDARY Tonsillectomy ALLERGIES Crestor [Rosuvastatin], Lisinopril, Norvasc [Amlodipine Besylate], and Penicillins MEDICATIONS TRULICITY 4.5 mg/0.5 mL pen injector Inject 4.5 mg subcutaneously one time a week. glimepiride (AMARYL) 2 mg tablet Take 1 tablet by mouth every 12 hours. omeprazole (PRILOSEC) 20 mg capsule Take 1 capsule by mouth daily before breakfast. 1/2 hr before meal. allopurinol (ZYLOPRIM) 100 mg tablet Take 2 tablets by mouth once daily. ergocalciferol 50,000 unit capsule (VITAMIN D2, DRISDOL) Take 1 capsule by mouth one time a week. metoprolol succinate ER (TOPROL XL) 100 mg Take 1 tablet by mouth once daily. losartan (COZAAR) 50 mg tablet Take 1.5 tablets by mouth once daily. rosuvastatin (CRESTOR) 10 mg tablet Take 10 mg by mouth once daily. polyethylene glycol 3350 (MIRALAX, GLYCOLAX) 17 gram/dose powder Use as directed for Miralax / Gatorade Bowel Prep Kit levothyroxine (SYNTHROID) 125 mcg tablet Take 125 mcg by mouth once daily. ezetimibe (ZETIA) 10 mg tablet Take 10 mg by mouth once daily. blood sugar diagnostic (ACCU-CHEK DADA PLUS TEST STRP) test strip Test blood sugar(s) 2 times daily. Dx: Type 2 DM - Controlled E11.9 Insulin: No Blood-Glucose Meter (ACCU-CHEK DADA PLUS METER) Dispense One meter. Patient is testing blood sugar twice daily. Is not using insulin. DX E11.9 Lancets (ACCU-CHEK SOFTCLIX LANCETS) lancets Test blood sugar(s) 2 times daily. Dx: Type 2 DM - Controlled E11.9 Insulin: No COMPOUNDED PRESCRIPTION Calcium 1000mg daily HYDROcodone-acetaminophen 5-325 mg per tablet Take 1 tablet by mouth every 8 hours as needed. clonazePAM (KLONOPIN) 1 mg tablet Take 1 mg by mouth once daily. ZANAFLEX 4 MG CAP nightly FAMILY HISTORY Problem Relation Age of Onset Lipids Mother Lipids Father Hypertension Mother Social History Tobacco Use Smoking status: Former Packs/day: 1.00 Years: 15.00 Additional pack years: 0.00 Total pack years: 15.00 Types: Cigarettes Quit date: 10/24/1986 Years since quittin.9 Smokeless tobacco: Never Vaping Use Vaping Use: Never used Substance Use Topics Alcohol use: No Drug use: No ASSESSMENT/PLAN: 1. Sore throat - ICD9: 462, ICD10: J02.9 (primary diagnosis) - STREP A MOLECULAR (POC)- neg 2. Acute cough - ICD9: 786.2, ICD10: R05.1 - XR CHEST 2V FRONTAL/LAT - [id number] 2 MG-30 MG-10 MG/5 ML ORAL SYRUP * * * * Physician Interpretation * * * * EXAMINATION: CHEST RADIOGRAPH (2 VIEW FRONTAL AND LATERAL) PATIENT/TECHNOLOGIST PROVIDED HISTORY: Acute productive cou (more content not included)... [facility] 09-14-2023 History of Present illness Narrative CC: Patient presents with: Sore Throat: Cough and congestion x1 week. HPI: Evi Kamara is a 68 year old female who presents to the office with complaint of head congestion, cough, nonproductive, and sore throat for a week. Symptoms are worsening Associated symptoms includes sore throat and nasal congestion. Denies fever, nausea, vomiting , and diarrhea. Treatments tried include nothing so far. with no relief of symptoms. Sick contacts: unknown. History of asthma, frequent episodes of bronchitis, chronic bronchitis, bronchiectasis or COPD: No Smoker: No Seasonal/environmental allergies: No The ROS is otherwise negative. The patient's pmh, medications, allergies, and past visits are reviewed. PHYSICAL EXAM: BP 138/74 Pulse 97 Temp 36.7 C (98.1 F) Wt 101.5 kg (223 lb 12.8 oz) SpO2 98% BMI 35.05 kg/m General appearance: alert, cooperative, pleasant, in no acute distress Head: Normocephalic Eyes: EOM's intact, conjunctiva pink and moist, no icterus, sclera white, non-injected Ears: Right ear: External ear/canal- Normal, TM - clear with good landmarks. Left ear: External ear/canal- Normal, TM - clear with good landmarks Oropharynx:moist without lesions, No erythema, exudates or tonsillar hypertrophy. Heart: Negative. RRR without obvious murmur, gallop, or rubs. No ectopy. Lungs: clear to auscultation, without rales or wheeze, good air exchange PAST MEDICAL HISTORY Diagnosis Date Dysmetabolic syndrome X Esophageal reflux Myalgia and myositis, unspecified Other and unspecified hyperlipidemia Positive colorectal cancer screening using Cologuard test Unspecified essential hypertension Unspecified hypothyroidism PAST SURGICAL HISTORY Procedure Laterality Date ARTHRP KNE CONDYLE&PLATU MEDIAL&LAT COMPARTMENTS 05/04/2012 Knee replacement, total right [facility]. ARTHRP KNE CONDYLE&PLATU MEDIAL&LAT COMPARTMENTS 01/2012 left HYSTERECTOMY HX 1988 Hysterectomy, MATTHEW, ovaries retained, cervical CA LAPS SURG CHOLECYSTECTOMY W/CHOLANGIOGRAPHY 07/09/14 normal IOC NEUROPLASTY &/TRANSPOS MEDIAN NRV CARPAL TUNNE Carpal tunnel decomp, bilateral TONSILLECTOMY PRIMARY/SECONDARY <AGE 11 Tonsillectomy ALLERGIES Crestor [Rosuvastatin], Lisinopril, Norvasc [Amlodipine Besylate], and Penicillins MEDICATIONS TRULICITY 4.5 mg/0.5 mL pen injector Inject 4.5 mg subcutaneously one time a week. glimepiride (AMARYL) 2 mg tablet Take 1 tablet by mouth every 12 hours. omeprazole (PRILOSEC) 20 mg capsule Take 1 capsule by mouth daily before breakfast. 1/2 hr before meal. allopurinol (ZYLOPRIM) 100 mg tablet Take 2 tablets by mouth once daily. ergocalciferol 50,000 unit capsule (VITAMIN D2, DRISDOL) Take 1 capsule by mouth one time a week. metoprolol succinate ER (TOPROL XL) 100 mg Take 1 tablet by mouth once daily. losartan (COZAAR) 50 mg tablet Take 1.5 tablets by mouth once daily. rosuvastatin (CRESTOR) 10 mg tablet Take 10 mg by mouth once daily. polyethylene glycol 3350 (MIRALAX, GLYCOLAX) 17 gram/dose powder Use as directed for Miralax / Gatorade Bowel Prep Kit levothyroxine (SYNTHROID) 125 mcg tablet Take 125 mcg by mouth once daily. ezetimibe (ZETIA) 10 mg tablet Take 10 mg by mouth once daily. blood sugar diagnostic (ACCU-CHEK DADA PLUS TEST STRP) test strip Test blood sugar(s) 2 times daily. Dx: Type 2 DM - Controlled E11.9 Insulin: No Blood-Glucose Meter (ACCU-CHEK DADA PLUS METER) Dispense One meter. Patient is testing blood sugar twice daily. Is not using insulin. DX E11.9 Lancets (ACCU-CHEK SOFTCLIX LANCETS) lancets Test blood sugar(s) 2 times daily. Dx: Type 2 DM - Controlled E11.9 Insulin: No COMPOUNDED PRESCRIPTION Calcium 1000mg daily HYDROcodone-acetaminophen 5-325 mg per tablet Take 1 tablet by mouth every 8 hours as needed. clonazePAM (KLONOPIN) 1 mg tablet Take 1 mg by mouth once daily. ZANAFLEX 4 MG CAP nightly FAMILY HISTORY Problem Relation Age of Onset Lipids Mother Lipids Father Hypertension Mother Social History Tobacco Use Smoking status: Former Packs/day: 1.00 Years: 15.00 Additional pack years: 0.00 Total pack years: 15.00 Types: Cigarettes Quit date: 10/24/1986 Years since quittin.9 Smokeless tobacco: Never Vaping Use Vaping Use: Never used Substance Use Topics Alcohol use: No Drug use: No ASSESSMENT/PLAN: 1. Sore throat - ICD9: 462, ICD10: J02.9 (primary diagnosis) - STREP A MOLECULAR (POC)- neg 2. Acute cough - ICD9: 786.2, ICD10: R05.1 - XR CHEST 2V FRONTAL/LAT - [id number] 2 MG-30 MG-10 MG/5 ML ORAL SYRUP * * * * Physician Interpretation * * * * EXAMINATION: CHEST RADIOGRAPH (2 VIEW FRONTAL & LATERAL) PATIENT/TECHNOLOGIST PROVIDED HISTORY: Acute productive cough CLINICAL HISTORY: 68 years old Female with Acute cough MQ: [id number] EXAM DATE/TIME: 09/14/2023 11:01 AM COMPARISON: Chest radiograph 07/05/2014 RESULT: Lines, tubes, and devices: None. Lungs and pleura: No consolidation. No pleural effusion or pneumothorax. Cardiomediastinal silhouette: Normal cardiomediastinal silhouette. Bones and soft tissues: Mild endplate degenerative changes in the thoracic spine. IMPRESSION IMPRESSION: No acute radiographic abnormality. Bun Icer: SHARIFA Transcribe Date/Time: Sep 14 2023 11:03A Dictated by : MADELAINE JONES DO Prescription instructions reviewed with patient as applicable. Potential red flag symptoms discussed with the patient. Reviewed appropriate action plan to take if red flag symptoms occur. Patient agreeable to treatment plan. Fatoumata Light APRN.AGRICULTURAL EQUIPMENT SALES ENGINEER documented in this encounter [facility] 09-05-2023 Note HNO ID: [id number] Author: Nilsa Shahid MD Service: ? Author Type: Physician Type: Progress Notes Filed: 09/05/2023 9:12 AM Note Text: Patient presents with: 6 Month Exam HPI: Patient presents today for office visit for follow up. Diabetes: Seeing endo Dr Maldonado. Would like to do all lab work here if possible. Gerd: Insurance is not covering prilosec since marked OTC please order without the OTC. Does not miss a dose of this is well controlled on medication. Gout: Well controlled with allopurinol. HTN: Patient is compliant with meds Yes Monitors bp at home: Yes. Denies side effects: Yes. Chest pain: No. Dyspnea: No. Edema: No. Palpitations: No. Syncope: No. Headache: No. Dizziness: No. Had a positive cologuard. Still has not gotten her colonoscopy. Again. Discussed risks of missing a cancer or polyp. MEDICATIONS: Current Outpatient Medications Medication Sig TRULICITY 4.5 mg/0.5 mL pen injector Inject 4.5 mg subcutaneously one time a week. glimepiride (AMARYL) 2 mg tablet Take 1 tablet by mouth every 12 hours. metoprolol succinate ER (TOPROL XL) 100 mg Take 1 tablet by mouth once daily. allopurinol (ZYLOPRIM) 100 mg tablet Take 2 tablets by mouth once daily. losartan (COZAAR) 50 mg tablet Take 1.5 tablets by mouth once daily. ergocalciferol 50,000 unit capsule (VITAMIN D2, DRISDOL) Take 1 capsule by mouth one time a week. rosuvastatin (CRESTOR) 10 mg tablet Take 10 mg by mouth once daily. levothyroxine (SYNTHROID) 125 mcg tablet Take 125 mcg by mouth once daily. ezetimibe (ZETIA) 10 mg tablet Take 10 mg by mouth once daily. COMPOUNDED PRESCRIPTION Calcium 1000mg daily HYDROcodone-acetaminophen 5-325 mg per tablet Take 1 tablet by mouth every 8 hours as needed. clonazePAM (KLONOPIN) 1 mg tablet Take 1 mg by mouth once daily. ZANAFLEX 4 MG CAP nightly Omeprazole Magnesium (PRILOSEC OTC) 20 mg tablet Take 1 tablet by mouth once daily. polyethylene glycol 3350 (MIRALAX, GLYCOLAX) 17 gram/dose powder Use as directed for Miralax / Gatorade Bowel Prep Kit empagliflozin (JARDIANCE) 25 mg tablet Take 25 mg by mouth daily with breakfast. blood sugar diagnostic (ACCU-CHEK DADA PLUS TEST STRP) test strip Test blood sugar(s) 2 times daily. Dx: Type 2 DM - Controlled E11.9 Insulin: No Blood-Glucose Meter (ACCU-CHEK DADA PLUS METER) Dispense One meter. Patient is testing blood sugar twice daily. Is not using insulin. DX E11.9 Lancets (ACCU-CHEK SOFTCLIX LANCETS) lancets Test blood sugar(s) 2 times daily. Dx: Type 2 DM - Controlled E11.9 Insulin: No No current facility-administered medications for this visit. ALLERGIES: ALLERGIES Allergen Reactions Crestor [Rosuvastat* Myalgia Lisinopril Cough Norvasc [Amlodipine* Cough cough Penicillins Rash PAST MEDICAL HISTORY Diagnosis Date Dysmetabolic syndrome X Esophageal reflux Myalgia and myositis, unspecified Other and unspecified hyperlipidemia Positive colorectal cancer screening using Cologuard test Unspecified essential hypertension Unspecified hypothyroidism PAST SURGICAL HISTORY Procedure Laterality Date ARTHRP E CONDYLEANDPLATU MEDIALANDLAT COMPARTMENTS 05/04/2012 [facility], [facility] [facility]. ARTHRP KNE CONDYLEANDPLATU MEDIALANDLAT COMPARTMENTS 01/2012 left HYSTERECTOMY HX 1988 Hysterectomy, MATTHEW, ovaries retained, cervical CA LAPS SURG CHOLECYSTECTOMY W/CHOLANGIOGRAPHY 07/09/14 normal IOC NEUROPLASTY AND/TRANSPOS MEDIAN NRV CARPAL TUNNE Carpal tunnel decomp, bilateral TONSILLECTOMY PRIMARY/SECONDARY Tonsillectomy FAMILY HISTORY Problem Relation Age of Onset Lipids Mother Lipids Father Hypertension Mother Social History Tobacco Use Smoking status: Former Packs/day: 1.00 Years: 15.00 Additional pack years: 0.00 Total pack years: 15.00 Types: Cigarettes Quit date: 10/24/1986 Years since quittin.8 Smokeless tobacco: Never Vaping Use Vaping Use: Never used Substance Use Topics Alcohol use: No Drug use: No Reviewed current medications, allergies, past medical history, surgical history, family history and social history today. REVIEW OF SYSTEMS No bloody or black stools. All other reviewed and negative other than HPI. HEALTH MAINTENANCE: Reviewed health maintenance issues today and recommended the following in detail. BP Controlled (<130/80) Never done Hepatitis B Vaccine(1 of 3 - Risk 3-dose series) Never done RSV Vaccine(1 - 1-dose 60+ series) Never done Urine Albumin:Creatinine Ratio due on 08/21/2021 Covid-19 Vaccine(2022- season) due on 06/24/2023 HbA1C due on 08/25/2023 Dilated Retinal Exam - getting eye exam done today. Mammogram Screening due on 11/26/2023 VITALS: BP 132/70 Pulse 78 Wt 101.6 kg (224 lb) SpO2 98% BMI 35.08 kg/m? Last 4 Encounter Wt Readings: Date: Wt: 03/07/2023 97.3 kg (214 lb 9.6 oz) 03/02/2023 97.3 kg (214 lb 9.6 oz) 12/01/2022 97.5 (more content not included)... [facility] 09-05-2023 History of Present illness Narrative Patient presents with: 6 Month Exam HPI: Patient presents today for office visit for follow up. Diabetes: Seeing endo Dr Maldonado. Would like to do all lab work here if possible. Gerd: Insurance is not covering prilosec since marked OTC please order without the OTC. Does not miss a dose of this is well controlled on medication. Gout: Well controlled with allopurinol. HTN: Patient is compliant with meds Yes Monitors bp at home: Yes. Denies side effects: Yes. Chest pain: No. Dyspnea: No. Edema: No. Palpitations: No. Syncope: No. Headache: No. Dizziness: No. Had a positive cologuard. Still has not gotten her colonoscopy. Again. Discussed risks of missing a cancer or polyp. MEDICATIONS: Current Outpatient Medications Medication Sig TRULICITY 4.5 mg/0.5 mL pen injector Inject 4.5 mg subcutaneously one time a week. glimepiride (AMARYL) 2 mg tablet Take 1 tablet by mouth every 12 hours. metoprolol succinate ER (TOPROL XL) 100 mg Take 1 tablet by mouth once daily. allopurinol (ZYLOPRIM) 100 mg tablet Take 2 tablets by mouth once daily. losartan (COZAAR) 50 mg tablet Take 1.5 tablets by mouth once daily. ergocalciferol 50,000 unit capsule (VITAMIN D2, DRISDOL) Take 1 capsule by mouth one time a week. rosuvastatin (CRESTOR) 10 mg tablet Take 10 mg by mouth once daily. levothyroxine (SYNTHROID) 125 mcg tablet Take 125 mcg by mouth once daily. ezetimibe (ZETIA) 10 mg tablet Take 10 mg by mouth once daily. COMPOUNDED PRESCRIPTION Calcium 1000mg daily HYDROcodone-acetaminophen 5-325 mg per tablet Take 1 tablet by mouth every 8 hours as needed. clonazePAM (KLONOPIN) 1 mg tablet Take 1 mg by mouth once daily. ZANAFLEX 4 MG CAP nightly Omeprazole Magnesium (PRILOSEC OTC) 20 mg tablet Take 1 tablet by mouth once daily. polyethylene glycol 3350 (MIRALAX, GLYCOLAX) 17 gram/dose powder Use as directed for Miralax / Gatorade Bowel Prep Kit empagliflozin (JARDIANCE) 25 mg tablet Take 25 mg by mouth daily with breakfast. blood sugar diagnostic (ACCU-CHEK DADA PLUS TEST STRP) test strip Test blood sugar(s) 2 times daily. Dx: Type 2 DM - Controlled E11.9 Insulin: No Blood-Glucose Meter (ACCU-CHEK DADA PLUS METER) Dispense One meter. Patient is testing blood sugar twice daily. Is not using insulin. DX E11.9 Lancets (ACCU-CHEK SOFTCLIX LANCETS) lancets Test blood sugar(s) 2 times daily. Dx: Type 2 DM - Controlled E11.9 Insulin: No No current facility-administered medications for this visit. ALLERGIES: ALLERGIES Allergen Reactions Crestor [Rosuvastat* Myalgia Lisinopril Cough Norvasc [Amlodipine* Cough cough Penicillins Rash PAST MEDICAL HISTORY Diagnosis Date Dysmetabolic syndrome X Esophageal reflux Myalgia and myositis, unspecified Other and unspecified hyperlipidemia Positive colorectal cancer screening using Cologuard test Unspecified essential hypertension Unspecified hypothyroidism PAST SURGICAL HISTORY Procedure Laterality Date ARTHRP KNE CONDYLE&PLATU MEDIAL&LAT COMPARTMENTS 05/04/2012 Knee replacement, total right - [facility]. ARTHRP KNE CONDYLE&PLATU MEDIAL&LAT COMPARTMENTS 01/2012 left HYSTERECTOMY HX 1988 Hysterectomy, MATTHEW, ovaries retained, cervical CA LAPS SURG CHOLECYSTECTOMY W/CHOLANGIOGRAPHY 07/09/14 normal IOC NEUROPLASTY &/TRANSPOS MEDIAN NRV CARPAL TUNNE Carpal tunnel decomp, bilateral TONSILLECTOMY PRIMARY/SECONDARY <AGE 12 Tonsillectomy FAMILY HISTORY Problem Relation Age of Onset Lipids Mother Lipids Father Hypertension Mother Social History Tobacco Use Smoking status: Former Packs/day: 1.00 Years: 15.00 Additional pack years: 0.00 Total pack years: 15.00 Types: Cigarettes Quit date: 10/24/1986 Years since quittin.8 Smokeless tobacco: Never Vaping Use Vaping Use: Never used Substance Use Topics Alcohol use: No Drug use: No Reviewed current medications, allergies, past medical history, surgical history, family history and social history today. REVIEW OF SYSTEMS No bloody or black stools. All other reviewed and negative other than HPI. HEALTH MAINTENANCE: Reviewed health maintenance issues today and recommended the following in detail. BP Controlled (<130/80) Never done Hepatitis B Vaccine(1 of 3 - Risk 3-dose series) Never done RSV Vaccine(1 - 1-dose 60+ series) Never done Urine Albumin:Creatinine Ratio due on 08/21/2021 Covid-19 Vaccine(2022- season) due on 06/24/2023 HbA1C due on 08/25/2023 Dilated Retinal Exam - getting eye exam done today. Mammogram Screening due on 11/26/2023 VITALS: BP 132/70 Pulse 78 Wt 101.6 kg (224 lb) SpO2 98% BMI 35.08 kg/m Last 4 Encounter Wt Readings: Date: Wt: 03/07/2023 97.3 kg (214 lb 9.6 oz) 03/02/2023 97.3 kg (214 lb 9.6 oz) 12/01/2022 97.5 kg (215 lb) 11/15/2022 97.1 kg (214 lb) PHYSICAL EXAMINATION: General appearance: Well appearing, alert, in no acute distress, well-hydrated, well nourished. Skin: Skin color, texture, turgor normal, no suspicious rashes or lesions Head: Normocephalic, no masses, lesions, tenderness or abnormalities Neck: Supple, no adenopathy; thyroid symmetric, normal size, no bruits Back: Normal exam Lungs: Lungs clear to auscultation. No wheezing, rhonchi, rales Heart: RRR without murmur, gallop, or rubs. No ectopy Abdomen: Normal abdominal exam, Abdomen soft, non-tender. Bowel sounds normal. No masses, organomegaly ASSESSMENT/PLAN: 1. Type 2 diabetes mellitus without complication, without long-term current use of insulin (HCC) - ICD9: 250.00, ICD10: E11.9 (primary diagnosis) - Controlled - Continue current medications - ALBUMIN/CREAT RATIO RND UR - HGB A1C - CBC + DIFF 2. Chronic gout of multiple sites, unspecified cause - ICD9: 274.02, ICD10: M1A.09X0 - stable. - ALLOPURINOL 100 MG TABLET - URIC ACID BLOOD 3. Vitamin D deficiency - ICD9: 268.9, ICD10: E55.9 - ERGOCALCIFEROL (VITAMIN D2) 1,250 MCG (50,000 UNIT) CAPSULE - VITAMIN D 25 HYDROXY 4. Fibromyalgia - ICD9: 729.1, ICD10: M79.7 - stable 5. HTN, goal below 140/90 - ICD9: 401.9, ICD10: I10 - Controlled - Continue current medications 6. Acquired hypothyroidism - ICD9: 244.9, ICD10: E03.9 - Instructed patient on importance of taking on an empty stomach either first thing in the morning or at bedtime. 7. Right thyroid nodule - ICD9: 241.0, ICD10: E04.1 - per endo 8. Goiter - ICD9: 240.9, ICD10: E04.9 - per endo 9. Obesity, Class II, BMI 35-39.9 - ICD9: 278.00, ICD10: E66.9 10. Positive colorectal cancer screening using Cologuard test - ICD9: 787.7, ICD10: R19.5 - CONSULT TO GENERAL SURGERY 11. Screening breast examination - ICD9: V76.10, ICD10: Z12.39 - [facility] SCREENING [facility] 12. Encounter for screening mammogram for malignant neoplasm of breast - ICD9: V76.12, ICD10: Z12.31 - [facility] SCREENING [facility] N[place] RTO in six months and prn. documented in this encounter [facility] 06-22-2023 Miscellaneous Notes Patient has been identified by name and date of : Yes Requested Prescriptions Pending Prescriptions Disp Refills metoprolol succinate ER (TOPROL XL) 100 mg 90 tablet 3 Sig: Take 1 tablet by mouth once daily. allopurinol (ZYLOPRIM) 100 mg tablet 180 tablet 0 Sig: Take 2 tablets by mouth once daily. losartan (COZAAR) 50 mg tablet 135 tablet 1 Sig: Take 1.5 tablets by mouth once daily. NIKOLAY:03-02-23 NOV:09-05-23 RX INSTRUCTIONS: Patient aware RX will be sent to pharmacy. No need to notify patient. Brandy Novoa documented in this encounter [facility] 05-23-2023 Miscellaneous Notes Patient phones requesting refills as follows: Requested Prescriptions Pending Prescriptions Disp Refills losartan (COZAAR) 50 mg tablet 135 tablet 1 Sig: Take 1.5 tablets by mouth once daily. NIKOLAY-03/02/23 Labs-11/25/22 NOV-09/05/23 Please review and advise. Natali Helton LPN documented in this encounter [facility] 03-23-2023 Miscellaneous Notes Patient phones requesting refills as follows: Requested Prescriptions Pending Prescriptions Disp Refills ergocalciferol 50,000 unit capsule (VITAMIN D2, DRISDOL) 12 capsule 1 Sig: Take 1 capsule by mouth one time a week. allopurinol (ZYLOPRIM) 100 mg tablet 180 tablet 0 Sig: Take 2 tablets by mouth once daily. Please review and advise. Santi De Luna LPN documented in this encounter [facility] 03-07-2023 Note HNO ID: [id number] Author: Brian Page PA-C Service: ? Author Type: Physician Link Knitting Machine Operator Type: Progress Notes Filed: 03/07/2023 12:10 PM Note Text: HISTORY AND PHYSICAL Evi Kamara 1955 REFERRING PHYSICIAN: Shantelle Beaver APRN.C* CHIEF COMPLAINT: Consult (Colonoscopy consult, positive cologuard. ) HPI: The patient is a 67 year old female referred for endoscopy due to positive Cologuard test. Evi notes no colon complaints currently. Patient denies any change in bowel habits, weight changes, blood in stools, black tarry stools or abdominal pain. Denies family history of colon issues. The patient NOTES issues with acid reflux, takes PPI regularly. She is a former smoker. Evi has undergone prior endoscopy, states around 16-17 years ago. Records not currently available for review. Patient does not recall polyps or other concerning findings at that time. PAST MEDICAL HISTORY Diagnosis Date Dysmetabolic syndrome X Esophageal reflux Myalgia and myositis, unspecified Other and unspecified hyperlipidemia Positive colorectal cancer screening using Cologuard test Unspecified essential hypertension Unspecified hypothyroidism PAST SURGICAL HISTORY Procedure Laterality Date ARTHRP KNE CONDYLEANDPLATU MEDIALANDLAT COMPARTMENTS 05/04/2012 Knee replacement, total right - [facility]. ARTHRP KNE CONDYLEANDPLATU MEDIALANDLAT COMPARTMENTS 01/2012 left HYSTERECTOMY HX 1988 Hysterectomy, MATTHEW, ovaries retained, cervical CA LAPS SURG CHOLECYSTECTOMY W/CHOLANGIOGRAPHY 07/09/14 normal IOC NEUROPLASTY AND/TRANSPOS MEDIAN NRV CARPAL TUNNE Carpal tunnel decomp, bilateral TONSILLECTOMY PRIMARY/SECONDARY Tonsillectomy Current Outpatient Medications Medication Sig rosuvastatin (CRESTOR) 10 mg tablet Take 10 mg by mouth three times a week. Omeprazole Magnesium (PRILOSEC OTC) 20 mg tablet Take 1 tablet by mouth once daily. allopurinol (ZYLOPRIM) 100 mg tablet Take 2 tablets by mouth once daily. losartan (COZAAR) 50 mg tablet Take 1.5 tablets by mouth once daily. dulaglutide (TRULICITY) 1.5 mg/0.5 mL pen injector Inject 3 mg subcutaneously one time a week. Inject once per week. Discard Pen After Dr Maldonado metoprolol succinate ER (TOPROL XL) 100 mg Take 1 tablet by mouth once daily. polyethylene glycol 3350 (MIRALAX, GLYCOLAX) 17 gram/dose powder Use as directed for Miralax / Gatorade Bowel Prep Kit ergocalciferol 50,000 unit capsule (VITAMIN D2, DRISDOL) Take 1 capsule by mouth one time a week. empagliflozin (JARDIANCE) 25 mg tablet Take 25 mg by mouth daily with breakfast. levothyroxine (SYNTHROID) 125 mcg tablet Take 125 mcg by mouth once daily. ezetimibe (ZETIA) 10 mg tablet Take 10 mg by mouth once daily. blood sugar diagnostic (ACCU-CHEK DADA PLUS TEST STRP) test strip Test blood sugar(s) 2 times daily. Dx: Type 2 DM - Controlled E11.9 Insulin: No Blood-Glucose Meter (ACCU-CHEK DADA PLUS METER) Dispense One meter. Patient is testing blood sugar twice daily. Is not using insulin. DX E11.9 Lancets (ACCU-CHEK SOFTCLIX LANCETS) lancets Test blood sugar(s) 2 times daily. Dx: Type 2 DM - Controlled E11.9 Insulin: No COMPOUNDED PRESCRIPTION Calcium 1000mg daily HYDROcodone-acetaminophen 5-325 mg per tablet Take 1 tablet by mouth every 8 hours as needed. clonazePAM (KLONOPIN) 1 mg tablet Take 1 mg by mouth once daily. ZANAFLEX 4 MG CAP nightly No current facility-administered medications for this visit. ALLERGIES: Crestor [Rosuvastatin], Lisinopril, Norvasc [Amlodipine Besylate], and Penicillins PERSONAL HISTORY: Social History Tobacco Use Smoking status: Former Packs/day: 1.00 Years: 15.00 Pack years: 15.00 Types: Cigarettes Quit date: 10/24/1986 Years since quittin.3 Smokeless tobacco: Never Vaping Use Vaping Use: Never used Substance Use Topics Alcohol use: No Drug use: No FAMILY HISTORY: FAMILY HISTORY Problem Relation Age of Onset Lipids Mother Lipids Father Hypertension Mother REVIEW OF SYMPTOMS: The review of systems data was entered by the nurse and reviewed by mt Nursing Notes: Africa Molina RN 03/07/2023 9:08 AM Signed REVIEW OF SYSTEMS: General: The patient denies fatigue, denies weight loss, denies weight gain, denies feeling hot, and denies feelings of cold. Eyes: The patient denies glaucoma, denies eye injury/surgery, wears glasses or contacts. Ear/Nose/Throat: The patient NOTES allergies, NOTES hayfever, denies ear infections, and denies bloody noses. Cardiovascular: The patient denies chest pain, denies heart disease, NOTES high blood pressure,denies cardiac stent, denies prior heart attack, denies irregular heart beat, NOTES high cholesterol, denies poor circulation, denies heart failure, other cardiac issues, denies claudication, denies cold feet, denies peripheral arterial stent. Respiratory: The patient denies tuberculosis, denies pneumonia, denies fr (more content not included)... [facility] 03-07-2023 Nurse Note REVIEW OF SYSTEMS: General: The patient denies fatigue, denies weight loss, denies weight gain, denies feeling hot, and denies feelings of cold. Eyes: The patient denies glaucoma, denies eye injury/surgery, wears glasses or contacts. Ear/Nose/Throat: The patient NOTES allergies, NOTES hayfever, denies ear infections, and denies bloody noses. Cardiovascular: The patient denies chest pain, denies heart disease, NOTES high blood pressure,denies cardiac stent, denies prior heart attack, denies irregular heart beat, NOTES high cholesterol, denies poor circulation, denies heart failure, other cardiac issues, denies claudication, denies cold feet, denies peripheral arterial stent. Respiratory: The patient denies tuberculosis, denies pneumonia, denies frequent cough, denies pulmonary embolism, denies shortness of breath, and denies coughing up blood. Gastrointestinal: The patient denies difficulty swallowing, NOTES acid reflux, denies ulcers, denies vomiting, denies jaundice/hepatitis, denies gallbladder problems, denies black or tarry stools, denies hemorrhoids, denies bleeding from rectum, denies diverticulitis, denies constipation, denies diarrhea, denies loss of stool control, and denies hernias. Kidney/Bladder: The patient denies kidney stones, denies urine infections, and denies bloody urine. Skin: The patient denies a history of skin cancer, denies bleeding/changing moles, and denies a history of skin rash. Neurologic: The patient denies a history of epilepsy/convulsions, denies headaches, denies head/spinal injuries, and denies stroke/TIA. Psychiatric: The patient denies psychiatric medications, denies depression, and denies voices, denies substance abuse. Endocrine: The patient NOTES thyroid disorders, NOTES diabetes, and denies hormonal problems. Hematologic: The patient denies a history of bruising, denies bleeding, and denies anemia, denies blood clots. Infections: The patient denies a history of measles and mumps, denies rheumatic fever, and denies sexually transmitted diseases. Musculoskeletal: The patient NOTES back pain/injury, denies back problems, denies sciatica, NOTES knee/foot trouble, NOTES arthritis, or NOTES gout. When was patient's last Mammogram screening? 10/13/2021 Last Colonoscopy: None Africa Molina RN documented in this encounter [facility] 03-07-2023 History of Present illness Narrative HISTORY AND PHYSICAL Evi Kamara 1955 REFERRING PHYSICIAN: Shantelle Beaver APRN.C* CHIEF COMPLAINT: Consult (Colonoscopy consult, positive cologuard. ) HPI: The patient is a 67 year old female referred for endoscopy due to positive Cologuard test. Evi notes no colon complaints currently. Patient denies any change in bowel habits, weight changes, blood in stools, black tarry stools or abdominal pain. Denies family history of colon issues. The patient NOTES issues with acid reflux, takes PPI regularly. She is a former smoker. Evi has undergone prior endoscopy, states around 16-17 years ago. Records not currently available for review. Patient does not recall polyps or other concerning findings at that time. PAST MEDICAL HISTORY Diagnosis Date Dysmetabolic syndrome X Esophageal reflux Myalgia and myositis, unspecified Other and unspecified hyperlipidemia Positive colorectal cancer screening using Cologuard test Unspecified essential hypertension Unspecified hypothyroidism PAST SURGICAL HISTORY Procedure Laterality Date ARTHRP KNE CONDYLE&PLATU MEDIAL&LAT COMPARTMENTS 05/04/2012 Knee replacement, total right - [facility]. ARTHRP KNE CONDYLE&PLATU MEDIAL&LAT COMPARTMENTS 01/2012 left HYSTERECTOMY HX 1988 Hysterectomy, MATTHEW, ovaries retained, cervical CA LAPS SURG CHOLECYSTECTOMY W/CHOLANGIOGRAPHY 07/09/14 normal IOC NEUROPLASTY &/TRANSPOS MEDIAN NRV CARPAL TUNNE Carpal tunnel decomp, bilateral TONSILLECTOMY PRIMARY/SECONDARY <AGE 11 Tonsillectomy Current Outpatient Medications Medication Sig rosuvastatin (CRESTOR) 10 mg tablet Take 10 mg by mouth three times a week. Omeprazole Magnesium (PRILOSEC OTC) 20 mg tablet Take 1 tablet by mouth once daily. allopurinol (ZYLOPRIM) 100 mg tablet Take 2 tablets by mouth once daily. losartan (COZAAR) 50 mg tablet Take 1.5 tablets by mouth once daily. dulaglutide (TRULICITY) 1.5 mg/0.5 mL pen injector Inject 3 mg subcutaneously one time a week. Inject once per week. Discard Pen After Dr Maldonado metoprolol succinate ER (TOPROL XL) 100 mg Take 1 tablet by mouth once daily. polyethylene glycol 3350 (MIRALAX, GLYCOLAX) 17 gram/dose powder Use as directed for Miralax / Gatorade Bowel Prep Kit ergocalciferol 50,000 unit capsule (VITAMIN D2, DRISDOL) Take 1 capsule by mouth one time a week. empagliflozin (JARDIANCE) 25 mg tablet Take 25 mg by mouth daily with breakfast. levothyroxine (SYNTHROID) 125 mcg tablet Take 125 mcg by mouth once daily. ezetimibe (ZETIA) 10 mg tablet Take 10 mg by mouth once daily. blood sugar diagnostic (ACCU-CHEK DADA PLUS TEST STRP) test strip Test blood sugar(s) 2 times daily. Dx: Type 2 DM - Controlled E11.9 Insulin: No Blood-Glucose Meter (ACCU-CHEK DADA PLUS METER) Dispense One meter. Patient is testing blood sugar twice daily. Is not using insulin. DX E11.9 Lancets (ACCU-CHEK SOFTCLIX LANCETS) lancets Test blood sugar(s) 2 times daily. Dx: Type 2 DM - Controlled E11.9 Insulin: No COMPOUNDED PRESCRIPTION Calcium 1000mg daily HYDROcodone-acetaminophen 5-325 mg per tablet Take 1 tablet by mouth every 8 hours as needed. clonazePAM (KLONOPIN) 1 mg tablet Take 1 mg by mouth once daily. ZANAFLEX 4 MG CAP nightly No current facility-administered medications for this visit. ALLERGIES: Crestor [Rosuvastatin], Lisinopril, Norvasc [Amlodipine Besylate], and Penicillins PERSONAL HISTORY: Social History Tobacco Use Smoking status: Former Packs/day: 1.00 Years: 15.00 Pack years: 15.00 Types: Cigarettes Quit date: 10/24/1986 Years since quittin.3 Smokeless tobacco: Never Vaping Use Vaping Use: Never used Substance Use Topics Alcohol use: No Drug use: No FAMILY HISTORY: FAMILY HISTORY Problem Relation Age of Onset Lipids Mother Lipids Father Hypertension Mother REVIEW OF SYMPTOMS: The review of systems data was entered by the nurse and reviewed by mt Nursing Notes: Africa Molina RN 03/07/2023 9:08 AM Signed REVIEW OF SYSTEMS: General: The patient denies fatigue, denies weight loss, denies weight gain, denies feeling hot, and denies feelings of cold. Eyes: The patient denies glaucoma, denies eye injury/surgery, wears glasses or contacts. Ear/Nose/Throat: The patient NOTES allergies, NOTES hayfever, denies ear infections, and denies bloody noses. Cardiovascular: The patient denies chest pain, denies heart disease, NOTES high blood pressure,denies cardiac stent, denies prior heart attack, denies irregular heart beat, NOTES high cholesterol, denies poor circulation, denies heart failure, other cardiac issues, denies claudication, denies cold feet, denies peripheral arterial stent. Respiratory: The patient denies tuberculosis, denies pneumonia, denies frequent cough, denies pulmonary embolism, denies shortness of breath, and denies coughing up blood. Gastrointestinal: The patient denies difficulty swallowing, NOTES acid reflux, denies ulcers, denies vomiting, denies jaundice/hepatitis, denies gallbladder problems, denies black or tarry stools, denies hemorrhoids, denies bleeding from rectum, denies diverticulitis, denies constipation, denies diarrhea, denies loss of stool control, and denies hernias. Kidney/Bladder: The patient denies kidney stones, denies urine infections, and denies bloody urine. Skin: The patient denies a history of skin cancer, denies bleeding/changing moles, and denies a history of skin rash. Neurologic: The patient denies a history of epilepsy/convulsions, denies headaches, denies head/spinal injuries, and denies stroke/TIA. Psychiatric: The patient denies psychiatric medications, denies depression, and denies voices, denies substance abuse. Endocrine: The patient NOTES thyroid disorders, NOTES diabetes, and denies hormonal problems. Hematologic: The patient denies a history of bruising, denies bleeding, and denies anemia, denies blood clots. Infections: The patient denies a history of measles and mumps, denies rheumatic fever, and denies sexually transmitted diseases. Musculoskeletal: The patient NOTES back pain/injury, denies back problems, denies sciatica, NOTES knee/foot trouble, NOTES arthritis, or NOTES gout. When was patient's last Mammogram screening? 10/13/2021 Last Colonoscopy: None Africa Molina RN I have confirmed and edited as necessary, the PFSH and ROS obtained by others. Brian Page PA-C PHYSICAL EXAMINATION: General: The patient is 67 year old female, well nourished, well hydrated in no acute distress. The patient is oriented to time, place, and person. VITALS: Blood pressure 132/76, pulse 82, temperature 36.2 C (97.2 F), height 170.2 cm (5' 7 ), weight 97.3 kg (214 lb 9.6 oz), SpO2 96 %. Body mass index is 33.61 kg/m . HEENT: Normal cephalic, ataumatic, pupils are equally round, sclera are anicteric, mucous membranes are moist, oropharynx is clear. Neck has no masses, asymmetry or lymphadenopathy. Respiratory: Clear to auscultation and percussion. Normal respiratory excursion and pattern. Cardiac: Examination is regular rate and rhythm. Normal S1/S2 Abdominal exam: Soft, nontender, with no palpable masses. No hepatosplenomegaly. No palpable hernias. Extremities: no clubbing, cyanosis or edema. No adenopathy. LABORATORY VALUES: As Noted RADIOLOGIC STUDIES: As Noted Assessment IMPRESSION: positive Cologuard. GERD PLAN: I have reviewed my findings with the surgeon. Will plan for upper and lower endoscopy. We discussed the risks and benefits of the planned endoscopy. I have informed the patient that complications can occur including failure to complete the endoscopy and perforation. The patient had the opportunity to ask questions concerning the planned endoscopy. My staff has also explained the procedure to the patient in understandable terms and has given the patient printed material concerning the procedure. The patient freely consents to surgery. Patient instructed to contact PCP for instructions regarding diabetic medication, which may require adjustment during bowel preparation and/or day of procedure I plan to use Miralax bowel preparation We will plan for Monitored Anesthetic Care. Diagnoses: (R19.5) Positive colorectal cancer screening using Cologuard test Consultation requested by Shantelle Beaver CNP for an opinion regarding screening colonoscopy. My final recommendations will be communicated back to the requesting physician by way of shared Medical record or letter to requesting physician via US mail. Brian Page PA-C documented in this encounter [facility] 03-02-2023 Note HNO ID: [id number] Author: Nilsa Shahid MD Service: ? Author Type: Physician Type: Progress Notes Filed: 03/02/2023 8:58 AM Note Text: Patient presents with: Follow Up HPI: Patient presents today for office visit for 3 month follow up. DM: Follows with Dr. Maldonado. Recently started on Crestor 10 mg 3 times a week. No side effects. Does not check sugars No vision changes. Up to date on eye exam. No foot lesions, denies numbness or pain. Last a1c was 7.5. HTN: Does not monitor BP at home Denies chest pain and shortness of breath No headaches or dizziness If on feet for too long will get some swelling in feet. Is unchanged. No syncope No palpitations Taking Allopurinol daily. No recent full blown outbreaks. GERD: Taking Omeprazole. Symptoms controlled. No issues. Stopped Sertraline last month. Wasn't feeling any different taking it. She feels this is something she just needs to deal with on her own. Depression comes and goes. Not as bad from back in October when son passed. Had a positive cologuard. Has not followed up with surgery yet. Reinforced importance of follow up. MEDICATIONS: Current Outpatient Medications Medication Sig rosuvastatin (CRESTOR) 10 mg tablet Take 10 mg by mouth three times a week. Omeprazole Magnesium (PRILOSEC OTC) 20 mg tablet Take 1 tablet by mouth once daily. allopurinol (ZYLOPRIM) 100 mg tablet Take 2 tablets by mouth once daily. sertraline (ZOLOFT) 50 mg tablet Take one tab a day po losartan (COZAAR) 50 mg tablet Take 1.5 tablets by mouth once daily. dulaglutide (TRULICITY) 1.5 mg/0.5 mL pen injector Inject 3 mg subcutaneously one time a week. Inject once per week. Discard Pen After Dr Maldonado metoprolol succinate ER (TOPROL XL) 100 mg Take 1 tablet by mouth once daily. polyethylene glycol 3350 (MIRALAX, GLYCOLAX) 17 gram/dose powder Use as directed for Miralax / Gatorade Bowel Prep Kit ergocalciferol 50,000 unit capsule (VITAMIN D2, DRISDOL) Take 1 capsule by mouth one time a week. empagliflozin (JARDIANCE) 25 mg tablet Take 25 mg by mouth daily with breakfast. levothyroxine (SYNTHROID) 125 mcg tablet Take 125 mcg by mouth once daily. ezetimibe (ZETIA) 10 mg tablet Take 10 mg by mouth once daily. blood sugar diagnostic (ACCU-CHEK DADA PLUS TEST STRP) test strip Test blood sugar(s) 2 times daily. Dx: Type 2 DM - Controlled E11.9 Insulin: No Blood-Glucose Meter (ACCU-CHEK DADA PLUS METER) Dispense One meter. Patient is testing blood sugar twice daily. Is not using insulin. DX E11.9 Lancets (ACCU-CHEK SOFTCLIX LANCETS) lancets Test blood sugar(s) 2 times daily. Dx: Type 2 DM - Controlled E11.9 Insulin: No COMPOUNDED PRESCRIPTION Calcium 1000mg daily HYDROcodone-acetaminophen 5-325 mg per tablet Take 1 tablet by mouth every 8 hours as needed. clonazePAM (KLONOPIN) 1 mg tablet Take 1 mg by mouth once daily. ZANAFLEX 4 MG CAP nightly No current facility-administered medications for this visit. ALLERGIES: ALLERGIES Allergen Reactions Crestor [Rosuvastat* Myalgia Lisinopril Cough Norvasc [Amlodipine* Cough cough Penicillins Rash PAST MEDICAL HISTORY Diagnosis Date Dysmetabolic syndrome X Esophageal reflux Myalgia and myositis, unspecified Other and unspecified hyperlipidemia Unspecified essential hypertension Unspecified hypothyroidism PAST SURGICAL HISTORY Procedure Laterality Date ARTHRP KNE CONDYLEANDPLATU MEDIALANDLAT COMPARTMENTS 05/04/2012 Knee replacement, total right - [facility]. ARTHRP KNE CONDYLEANDPLATU MEDIALANDLAT COMPARTMENTS 01/2012 left HYSTERECTOMY HX 1988 Hysterectomy, MATTHEW, ovaries retained, cervical CA LAPS SURG CHOLECYSTECTOMY W/CHOLANGIOGRAPHY 07/09/14 normal IOC NEUROPLASTY AND/TRANSPOS MEDIAN NRV CARPAL TUNNE Carpal tunnel decomp, bilateral TONSILLECTOMY PRIMARY/SECONDARY Tonsillectomy FAMILY HISTORY Problem Relation Age of Onset Lipids Mother Lipids Father Hypertension Mother Social History Tobacco Use Smoking status: Former Packs/day: 1.00 Years: 15.00 Pack years: 15.00 Types: Cigarettes Quit date: 10/24/1986 Years since quittin.3 Smokeless tobacco: Never Substance Use Topics Alcohol use: No Drug use: No Reviewed current medications, allergies, past medical history, surgical history, family history and social history today. REVIEW OF SYSTEMS All other reviewed and negative other than HPI. HEALTH MAINTENANCE: Reviewed health maintenance issues today and recommended the following in detail. BP CONTROLLED (<130/80) Never done BONE DENSITY -declines HBA1C -done DILATED RETINAL EXAM - done in last year. MAMMOGRAM - done ADVANCE DIRECTIVE DISCUSSION - discussed. Thinks she has one but is unsure. Will check. VITALS: BP 142/82 Pulse 78 Ht 170.2 cm (5' 7 ) Wt 97.3 kg (214 lb 9.6 oz) BMI 33.61 kg/m? Last 4 Encounter Wt Readings: Date: Wt: 12/01/2022 97.5 kg (215 lb) 11/15/2022 97.1 (more content not included)... [facility] 03-02-2023 Instructions Nilsa Shahid MD - 03/02/2023 8:56 AM EDT Call bp check from work in a month documented in this encounter [facility] 03-02-2023 History of Present illness Narrative Patient presents with: Follow Up HPI: Patient presents today for office visit for 3 month follow up. DM: Follows with Dr. Maldonado. Recently started on Crestor 10 mg 3 times a week. No side effects. Does not check sugars No vision changes. Up to date on eye exam. No foot lesions, denies numbness or pain. Last a1c was 7.5. HTN: Does not monitor BP at home Denies chest pain and shortness of breath No headaches or dizziness If on feet for too long will get some swelling in feet. Is unchanged. No syncope No palpitations Taking Allopurinol daily. No recent full blown outbreaks. GERD: Taking Omeprazole. Symptoms controlled. No issues. Stopped Sertraline last month. Wasn't feeling any different taking it. She feels this is something she just needs to deal with on her own. Depression comes and goes. Not as bad from back in October when son passed. Had a positive cologuard. Has not followed up with surgery yet. Reinforced importance of follow up. MEDICATIONS: Current Outpatient Medications Medication Sig rosuvastatin (CRESTOR) 10 mg tablet Take 10 mg by mouth three times a week. Omeprazole Magnesium (PRILOSEC OTC) 20 mg tablet Take 1 tablet by mouth once daily. allopurinol (ZYLOPRIM) 100 mg tablet Take 2 tablets by mouth once daily. sertraline (ZOLOFT) 50 mg tablet Take one tab a day po losartan (COZAAR) 50 mg tablet Take 1.5 tablets by mouth once daily. dulaglutide (TRULICITY) 1.5 mg/0.5 mL pen injector Inject 3 mg subcutaneously one time a week. Inject once per week. Discard Pen After Dr Maldonado metoprolol succinate ER (TOPROL XL) 100 mg Take 1 tablet by mouth once daily. polyethylene glycol 3350 (MIRALAX, GLYCOLAX) 17 gram/dose powder Use as directed for Miralax / Gatorade Bowel Prep Kit ergocalciferol 50,000 unit capsule (VITAMIN D2, DRISDOL) Take 1 capsule by mouth one time a week. empagliflozin (JARDIANCE) 25 mg tablet Take 25 mg by mouth daily with breakfast. levothyroxine (SYNTHROID) 125 mcg tablet Take 125 mcg by mouth once daily. ezetimibe (ZETIA) 10 mg tablet Take 10 mg by mouth once daily. blood sugar diagnostic (ACCU-CHEK DADA PLUS TEST STRP) test strip Test blood sugar(s) 2 times daily. Dx: Type 2 DM - Controlled E11.9 Insulin: No Blood-Glucose Meter (ACCU-CHEK DADA PLUS METER) Dispense One meter. Patient is testing blood sugar twice daily. Is not using insulin. DX E11.9 Lancets (ACCU-CHEK SOFTCLIX LANCETS) lancets Test blood sugar(s) 2 times daily. Dx: Type 2 DM - Controlled E11.9 Insulin: No COMPOUNDED PRESCRIPTION Calcium 1000mg daily HYDROcodone-acetaminophen 5-325 mg per tablet Take 1 tablet by mouth every 8 hours as needed. clonazePAM (KLONOPIN) 1 mg tablet Take 1 mg by mouth once daily. ZANAFLEX 4 MG CAP nightly No current facility-administered medications for this visit. ALLERGIES: ALLERGIES Allergen Reactions Crestor [Rosuvastat* Myalgia Lisinopril Cough Norvasc [Amlodipine* Cough cough Penicillins Rash PAST MEDICAL HISTORY Diagnosis Date Dysmetabolic syndrome X Esophageal reflux Myalgia and myositis, unspecified Other and unspecified hyperlipidemia Unspecified essential hypertension Unspecified hypothyroidism PAST SURGICAL HISTORY Procedure Laterality Date ARTHRP KNE CONDYLE&PLATU MEDIAL&LAT COMPARTMENTS 05/04/2012 Knee replacement, total right - [facility]. ARTHRP KNE CONDYLE&PLATU MEDIAL&LAT COMPARTMENTS 01/2012 left HYSTERECTOMY HX 1988 Hysterectomy, MATTHEW, ovaries retained, cervical CA LAPS SURG CHOLECYSTECTOMY W/CHOLANGIOGRAPHY 07/09/14 normal IOC NEUROPLASTY &/TRANSPOS MEDIAN NRV CARPAL TUNNE Carpal tunnel decomp, bilateral TONSILLECTOMY PRIMARY/SECONDARY <AGE 11 Tonsillectomy FAMILY HISTORY Problem Relation Age of Onset Lipids Mother Lipids Father Hypertension Mother Social History Tobacco Use Smoking status: Former Packs/day: 1.00 Years: 15.00 Pack years: 15.00 Types: Cigarettes Quit date: 10/24/1986 Years since quittin.3 Smokeless tobacco: Never Substance Use Topics Alcohol use: No Drug use: No Reviewed current medications, allergies, past medical history, surgical history, family history and social history today. REVIEW OF SYSTEMS All other reviewed and negative other than HPI. HEALTH MAINTENANCE: Reviewed health maintenance issues today and recommended the following in detail. BP CONTROLLED (<130/80) Never done BONE DENSITY -declines HBA1C -done DILATED RETINAL EXAM - done in last year. MAMMOGRAM - done ADVANCE DIRECTIVE DISCUSSION - discussed. Thinks she has one but is unsure. Will check. VITALS: BP 142/82 Pulse 78 Ht 170.2 cm (5' 7 ) Wt 97.3 kg (214 lb 9.6 oz) BMI 33.61 kg/m Last 4 Encounter Wt Readings: Date: Wt: 12/01/2022 97.5 kg (215 lb) 11/15/2022 97.1 kg (214 lb) 10/26/2022 97.5 kg (215 lb) 03/10/2022 97.1 kg (214 lb) PHYSICAL EXAMINATION: General appearance: Well appearing, alert, in no acute distress, well-hydrated, well nourished. Skin: Skin color, texture, turgor normal, no suspicious rashes or lesions Head: Normocephalic, no masses, lesions, tenderness or abnormalities Neck: Supple, no adenopathy; thyroid symmetric, normal size, no bruits Lungs: Lungs clear to auscultation. No wheezing, rhonchi, rales Heart: RRR without murmur, gallop, or rubs. No ectopy Abdomen: Normal abdominal exam, Abdomen soft, non-tender. Bowel sounds normal. No masses, organomegaly Extremities: No deformities, edema, skin discoloration, clubbing or cyanosis. Good capillary refill. ASSESSMENT/PLAN: 1. HTN, goal below 140/90 - ICD9: 401.9, ICD10: I10 (primary diagnosis) - suboptimal control - works at a medical facility. Requests to check at work and will let us know. 2. Fibromyalgia - ICD9: 729.1, ICD10: M79.7 - stable. 3. Gastroesophageal reflux disease without esophagitis - ICD9: 530.81, ICD10: K21.9 - follow meds. 4. Type 2 diabetes mellitus without complication, without long-term current use of insulin (HCC) - ICD9: 250.00, ICD10: E11.9 - Improving control - per Dr. Maldonado 5. Acquired hypothyroidism - ICD9: 244.9, ICD10: E03.9 - has been stable 6. Chronic gout of foot, unspecified cause, unspecified laterality - ICD9: 274.02, ICD10: M1A.0790 - no recent issues. 7. Vitamin D deficiency - ICD9: 268.9, ICD10: E55.9 - stable. 8. Class 1 obesity with body mass index (BMI) of 33.0 to 33.9 in adult, unspecified obesity type, unspecified whether serious comorbidity present - ICD9: 278.00, V85.33, ICD10: E66.9, Z68.33 - follow diet. Nilsa Shahid MD documented in this encounter [facility] 02-04-2023 Miscellaneous Notes Patient phones requesting refills as follows: Requested Prescriptions Pending Prescriptions Disp Refills Omeprazole Magnesium (PRILOSEC OTC) 20 mg tablet 90 tablet 1 Sig: Take 1 tablet by mouth once daily. NIKOLAY-12/01/22 Labs-11/25/22 NOV-03/02/23 med filled 07/26/22 Please review and advise. Natali Helton LPN documented in this encounter [facility] 01-17-2023 Miscellaneous Notes Patient has been identified by name and date of : Yes Requested Prescriptions Pending Prescriptions Disp Refills allopurinol (ZYLOPRIM) 100 mg tablet 180 tablet 0 Sig: Take 2 tablets by mouth once daily. RX INSTRUCTIONS: Patient aware RX will be sent to pharmacy. No need to notify patient. Patient last office visit: 12/01/22 Patient next office visit: 03/02/23 Ana M Goncalves MA documented in this encounter [facility] 12-01-2022 Note HNO ID: [id number] Author: Nilsa Shahid MD Service: ? Author Type: Physician Type: Progress Notes Filed: 12/01/2022 8:25 AM Note Text: Patient presents with: Recheck: 2 week medication HPI: Patient presents today for office visit for follow up from last ov. See previous ov: Son . Very depresed No suicidal ideation. Feels very down. Cries frequently. Has a good support system. Does not feel she can go back to work and function. Tolerating sertraline well. Less sad. Sleeping fair. No appetite changes. Feels ready to go back to work. No increased depression or suicidal ideation. Had a positive cologuard. Seeing surgery later this month. Saw Dr. Maldonado recently for her sugars. Cannot take statins. Discussed fibrates. Last a1c was 7.2. Admits to not watching diet. Discussed risks of pancreatitis given her lipids, particularly the trigs. Component Latest Ref Rng AND Units 11/25/2022 11/25/2022 10:00 AM 10:00 AM Protein, Total 6.3 - 8.0 g/dL 6.6 Albumin 3.9 - 4.9 g/dL 3.6 (L) Calcium 8.5 - 10.2 mg/dL 9.7 Bilirubin, Total 0.2 - 1.3 mg/dL 0.2 Alkaline Phosphatase 34 - 123 U/L 93 AST 13 - 35 U/L 23 ALT 7 - 38 U/L 20 Glucose 74 - 99 mg/dL 182 (H) BUN 7 - 21 mg/dL 11 Creatinine 0.58 - 0.96 mg/dL 0.73 Sodium 136 - 144 mmol/L 138 Potassium 3.7 - 5.1 mmol/L 4.2 Chloride 97 - 105 mmol/L 101 CO2 22 - 30 mmol/L 25 Anion Gap 9 - 18 mmol/L 12 eGFR >=60 mL/min/1.73mA? 90 Cholesterol, Total <200 mg/dL 345 (H) Triglyceride <150 mg/dL 545 (H) HDL Cholesterol >39 mg/dL 41 Non HDL Cholesterol <130 mg/dL 304 (H) Fasting Time hrs 13 VLDL Cholesterol 68 (H) TC:HDL Ratio <5.10 8.41 (H) LDL Cholesterol LDL:HDL Ratio LDL Cholesterol, Direct <100 mg/dL 236 (H) TSH 0.270 - 4.200 mIU/L 1.010 Vitamin D 25 Hydroxy 31.0 - 80.0 ng/mL 31.5 Creatinine, Ur Random (UCRR) 20.0 - 300.0 mg/dL 50.9 MEDICATIONS: Current Outpatient Medications Medication Sig sertraline (ZOLOFT) 50 mg tablet Take 1/2 tab once a day orally for one week then 1 tab once a day losartan (COZAAR) 50 mg tablet Take 1.5 tablets by mouth once daily. dulaglutide (TRULICITY) 1.5 mg/0.5 mL pen injector Inject 3 mg subcutaneously one time a week. Inject once per week. Discard Pen After Dr Maldonado allopurinol (ZYLOPRIM) 100 mg tablet Take 2 tablets by mouth once daily. metoprolol succinate ER (TOPROL XL) 100 mg Take 1 tablet by mouth once daily. Omeprazole Magnesium (PRILOSEC OTC) 20 mg tablet Take 1 tablet by mouth once daily. polyethylene glycol 3350 (MIRALAX, GLYCOLAX) 17 gram/dose powder Use as directed for Miralax / Gatorade Bowel Prep Kit ergocalciferol 50,000 unit capsule (VITAMIN D2, DRISDOL) Take 1 capsule by mouth one time a week. empagliflozin (JARDIANCE) 25 mg tablet Take 25 mg by mouth daily with breakfast. levothyroxine (SYNTHROID) 125 mcg tablet Take 125 mcg by mouth once daily. ezetimibe (ZETIA) 10 mg tablet Take 10 mg by mouth once daily. blood sugar diagnostic (ACCU-CHEK DADA PLUS TEST STRP) test strip Test blood sugar(s) 2 times daily. Dx: Type 2 DM - Controlled E11.9 Insulin: No Blood-Glucose Meter (ACCU-CHEK DADA PLUS METER) Dispense One meter. Patient is testing blood sugar twice daily. Is not using insulin. DX E11.9 Lancets (ACCU-CHEK SOFTCLIX LANCETS) lancets Test blood sugar(s) 2 times daily. Dx: Type 2 DM - Controlled E11.9 Insulin: No COMPOUNDED PRESCRIPTION Calcium 1000mg daily HYDROcodone-acetaminophen 5-325 mg per tablet Take 1 tablet by mouth every 8 hours as needed. clonazePAM (KLONOPIN) 1 mg tablet Take 1 mg by mouth once daily. ZANAFLEX 4 MG CAP nightly No current facility-administered medications for this visit. ALLERGIES: ALLERGIES Allergen Reactions Crestor [Rosuvastat* Myalgia Lisinopril Cough Norvasc [Amlodipine* Cough cough Penicillins Rash PAST MEDICAL HISTORY Diagnosis Date Dysmetabolic syndrome X Esophageal reflux Myalgia and myositis, unspecified Other and unspecified hyperlipidemia Unspecified essential hypertension Unspecified hypothyroidism PAST SURGICAL HISTORY Procedure Laterality Date ARTHRP KNE CONDYLEANDPLATU MEDIALANDLAT COMPARTMENTS 05/04/2012 Knee replacement, total right - [facility]. ARTHRP KNE CONDYLEANDPLATU MEDIALANDLAT COMPARTMENTS 01/2012 left HYSTERECTOMY HX 1988 Hysterectomy, MATTHEW, ovaries retained, cervical CA LAPS SURG CHOLECYSTECTOMY W/CHOLANGIOGRAPHY 07/09/14 normal IOC NEUROPLASTY AND/TRANSPOS MEDIAN NRV CARPAL TUNNE Carpal tunnel decomp, bilateral TONSILLECTOMY PRIMARY/SECONDARY Tonsillectomy FAMILY HISTORY Problem Relation Age of Onset Lipids Mother Lipids Father Hypertension Mother Social History Tobacco Use Smoking status: Former Packs/day: 1.00 Years: 15.00 Pack years: 15.00 Types: Cigarettes Quit date: 10/24/1986 Years since quittin.1 Smokeless tobacco: Never Substance Use Topics Alcohol use: No Drug use: No Rev (more content not included)... [facility] 12-01-2022 History of Present illness Narrative Patient presents with: Recheck: 2 week medication HPI: Patient presents today for office visit for follow up from last ov. See previous ov: Son . Very depresed No suicidal ideation. Feels very down. Cries frequently. Has a good support system. Does not feel she can go back to work and function. Tolerating sertraline well. Less sad. Sleeping fair. No appetite changes. Feels ready to go back to work. No increased depression or suicidal ideation. Had a positive cologuard. Seeing surgery later this month. Saw Dr. Maldonado recently for her sugars. Cannot take statins. Discussed fibrates. Last a1c was 7.2. Admits to not watching diet. Discussed risks of pancreatitis given her lipids, particularly the trigs. Component Latest Ref Rng & Units 11/25/2022 11/25/2022 10:00 AM 10:00 AM Protein, Total 6.3 - 8.0 g/dL 6.6 Albumin 3.9 - 4.9 g/dL 3.6 (L) Calcium 8.5 - 10.2 mg/dL 9.7 Bilirubin, Total 0.2 - 1.3 mg/dL 0.2 Alkaline Phosphatase 34 - 123 U/L 93 AST 13 - 35 U/L 23 ALT 7 - 38 U/L 20 Glucose 74 - 99 mg/dL 182 (H) BUN 7 - 21 mg/dL 11 Creatinine 0.58 - 0.96 mg/dL 0.73 Sodium 136 - 144 mmol/L 138 Potassium 3.7 - 5.1 mmol/L 4.2 Chloride 97 - 105 mmol/L 101 CO2 22 - 30 mmol/L 25 Anion Gap 9 - 18 mmol/L 12 eGFR >=60 mL/min/1.73m 90 Cholesterol, Total <200 mg/dL 345 (H) Triglyceride <150 mg/dL 545 (H) HDL Cholesterol >39 mg/dL 41 Non HDL Cholesterol <130 mg/dL 304 (H) Fasting Time hrs 13 VLDL Cholesterol 68 (H) TC:HDL Ratio <5.10 8.41 (H) LDL Cholesterol LDL:HDL Ratio LDL Cholesterol, Direct <100 mg/dL 236 (H) TSH 0.270 - 4.200 mIU/L 1.010 Vitamin D 25 Hydroxy 31.0 - 80.0 ng/mL 31.5 Creatinine, Ur Random (UCRR) 20.0 - 300.0 mg/dL 50.9 MEDICATIONS: Current Outpatient Medications Medication Sig sertraline (ZOLOFT) 50 mg tablet Take 1/2 tab once a day orally for one week then 1 tab once a day losartan (COZAAR) 50 mg tablet Take 1.5 tablets by mouth once daily. dulaglutide (TRULICITY) 1.5 mg/0.5 mL pen injector Inject 3 mg subcutaneously one time a week. Inject once per week. Discard Pen After Dr Maldonado allopurinol (ZYLOPRIM) 100 mg tablet Take 2 tablets by mouth once daily. metoprolol succinate ER (TOPROL XL) 100 mg Take 1 tablet by mouth once daily. Omeprazole Magnesium (PRILOSEC OTC) 20 mg tablet Take 1 tablet by mouth once daily. polyethylene glycol 3350 (MIRALAX, GLYCOLAX) 17 gram/dose powder Use as directed for Miralax / Gatorade Bowel Prep Kit ergocalciferol 50,000 unit capsule (VITAMIN D2, DRISDOL) Take 1 capsule by mouth one time a week. empagliflozin (JARDIANCE) 25 mg tablet Take 25 mg by mouth daily with breakfast. levothyroxine (SYNTHROID) 125 mcg tablet Take 125 mcg by mouth once daily. ezetimibe (ZETIA) 10 mg tablet Take 10 mg by mouth once daily. blood sugar diagnostic (ACCU-CHEK DADA PLUS TEST STRP) test strip Test blood sugar(s) 2 times daily. Dx: Type 2 DM - Controlled E11.9 Insulin: No Blood-Glucose Meter (ACCU-CHEK DADA PLUS METER) Dispense One meter. Patient is testing blood sugar twice daily. Is not using insulin. DX E11.9 Lancets (ACCU-CHEK SOFTCLIX LANCETS) lancets Test blood sugar(s) 2 times daily. Dx: Type 2 DM - Controlled E11.9 Insulin: No COMPOUNDED PRESCRIPTION Calcium 1000mg daily HYDROcodone-acetaminophen 5-325 mg per tablet Take 1 tablet by mouth every 8 hours as needed. clonazePAM (KLONOPIN) 1 mg tablet Take 1 mg by mouth once daily. ZANAFLEX 4 MG CAP nightly No current facility-administered medications for this visit. ALLERGIES: ALLERGIES Allergen Reactions Crestor [Rosuvastat* Myalgia Lisinopril Cough Norvasc [Amlodipine* Cough cough Penicillins Rash PAST MEDICAL HISTORY Diagnosis Date Dysmetabolic syndrome X Esophageal reflux Myalgia and myositis, unspecified Other and unspecified hyperlipidemia Unspecified essential hypertension Unspecified hypothyroidism PAST SURGICAL HISTORY Procedure Laterality Date ARTHRP KNE CONDYLE&PLATU MEDIAL&LAT COMPARTMENTS 05/04/2012 Knee replacement, total right - [facility]. ARTHRP KNE CONDYLE&PLATU MEDIAL&LAT COMPARTMENTS 01/2012 left HYSTERECTOMY HX 1988 Hysterectomy, MATTHEW, ovaries retained, cervical CA LAPS SURG CHOLECYSTECTOMY W/CHOLANGIOGRAPHY 07/09/14 normal IOC NEUROPLASTY &/TRANSPOS MEDIAN NRV CARPAL TUNNE Carpal tunnel decomp, bilateral TONSILLECTOMY PRIMARY/SECONDARY <AGE 11 Tonsillectomy FAMILY HISTORY Problem Relation Age of Onset Lipids Mother Lipids Father Hypertension Mother Social History Tobacco Use Smoking status: Former Packs/day: 1.00 Years: 15.00 Pack years: 15.00 Types: Cigarettes Quit date: 10/24/1986 Years since quittin.1 Smokeless tobacco: Never Substance Use Topics Alcohol use: No Drug use: No Reviewed current medications, allergies, past medical history, surgical history, family history and social history today. REVIEW OF SYSTEMS All other reviewed and negative other than HPI. HEALTH MAINTENANCE: Reviewed health maintenance issues today and recommended the following in detail. HBA1C due on 10/08/2020 DILATED RETINAL EXAM due on 08/19/2022 MAMMOGRAM-[facility]. DEPRESSION ASSESSMENT Never done COLORECTAL CANCER SCREENING due on 11/07/2022 VITALS: BP 130/78 Pulse 77 Resp 16 Wt 97.5 kg (215 lb) SpO2 98% BMI 33.16 kg/m Last 4 Encounter Wt Readings: Date: Wt: 12/01/2022 97.5 kg (215 lb) 11/15/2022 97.1 kg (214 lb) 10/26/2022 97.5 kg (215 lb) 03/10/2022 97.1 kg (214 lb) PHYSICAL EXAMINATION: General appearance: Well appearing, alert, in no acute distress, well-hydrated, well nourished. Skin: Skin color, texture, turgor normal, no suspicious rashes or lesions Head: Normocephalic, no masses, lesions, tenderness or abnormalities Lungs: Lungs clear to auscultation. No wheezing, rhonchi, rales Heart: RRR without murmur, gallop, or rubs. No ectopy Abdomen: Normal abdominal exam, Abdomen soft, non-tender. Bowel sounds normal. No masses, organomegaly Extremities: No deformities, edema, skin discoloration, clubbing or cyanosis. Good capillary refill. PSYCH:Affect normal. Normal speech. Normal eye contact ASSESSMENT/PLAN: 1. Grief reaction - ICD9: 309.0, ICD10: F43.21 (primary diagnosis) - encouraged to stay on meds. Call if any issues. Return to work in am. 2. Type 2 diabetes mellitus without complication, without long-term current use of insulin (HCC) - ICD9: 250.00, ICD10: E11.9 - follow with Dr. Maldonado 3. Acquired hypothyroidism - ICD9: 244.9, ICD10: E03.9 - continue meds. 4. HTN, goal below 140/90 - ICD9: 401.9, ICD10: I10 - good control - Goal of BP <130/80 5. Hypertriglyceridemia - ICD9: 272.1, ICD10: E78.1 - will work on diet. Recheck labs in one month - LIPID PANEL BASIC Nilsa Shahid MD documented in this encounter [facility] 11-23-2022 Miscellaneous Notes Faxed. Edwige Hernandez done Patient has been identified by name and date of : Yes Type of form: FMLA Form received via: Fax When form is completed, fax form to fax number provided. Form has been forwarded to: Provider's desk. Provider name: Dr Zehra Nova Ma documented in this encounter [facility] 11-16-2022 Miscellaneous Notes Summary: Consult with general surgery PT is scheduled for a consult to GS on 12/20/22 at 8:30 AM, PT did not want to see [place] so scheduled with [place]. Thank you, Shannon Johnson, PSS Patient informed and verbalized understanding. In agreement with colonoscopy. Sending to schedulers to assist. Edwige Hernandez Can please let patient know that we received her cologuard results, which were abnormal. There can be false positives with the cologuard; so, this does not mean there is something wrong, but it means they need to check more closely with a colonoscopy to make sure there isn't. I put the referral in for general surgery. Please help schedule. Shantelle Beaver APRN.ABDIRIZAK documented in this encounter [facility] 11-15-2022 Note HNO ID: [id number] Author: Nilsa Shahid MD Service: ? Author Type: Physician Type: Progress Notes Filed: 11/15/2022 9:06 AM Note Text: Patient presents with: Discussion HPI: Patient presents today for office visit for follow up. Son . Very depresed No suicidal ideation. Feels very down. Cries frequently. Has a good support system. Does not feel she can go back to work and function. MEDICATIONS: Current Outpatient Medications Medication Sig losartan (COZAAR) 50 mg tablet Take 1.5 tablets by mouth once daily. dulaglutide (TRULICITY) 1.5 mg/0.5 mL pen injector Inject 3 mg subcutaneously one time a week. Inject once per week. Discard Pen After Dr Maldonado allopurinol (ZYLOPRIM) 100 mg tablet Take 2 tablets by mouth once daily. metoprolol succinate ER (TOPROL XL) 100 mg Take 1 tablet by mouth once daily. Omeprazole Magnesium (PRILOSEC OTC) 20 mg tablet Take 1 tablet by mouth once daily. ergocalciferol 50,000 unit capsule (VITAMIN D2, DRISDOL) Take 1 capsule by mouth one time a week. empagliflozin (JARDIANCE) 25 mg tablet Take 25 mg by mouth daily with breakfast. levothyroxine (SYNTHROID) 125 mcg tablet Take 125 mcg by mouth once daily. ezetimibe (ZETIA) 10 mg tablet Take 10 mg by mouth once daily. HYDROcodone-acetaminophen 5-325 mg per tablet Take 1 tablet by mouth every 8 hours as needed. clonazePAM (KLONOPIN) 1 mg tablet Take 1 mg by mouth once daily. ZANAFLEX 4 MG CAP nightly polyethylene glycol 3350 (MIRALAX, GLYCOLAX) 17 gram/dose powder Use as directed for Miralax / Gatorade Bowel Prep Kit blood sugar diagnostic (ACCU-CHEK DADA PLUS TEST STRP) test strip Test blood sugar(s) 2 times daily. Dx: Type 2 DM - Controlled E11.9 Insulin: No Blood-Glucose Meter (ACCU-CHEK DADA PLUS METER) Dispense One meter. Patient is testing blood sugar twice daily. Is not using insulin. DX E11.9 Lancets (ACCU-CHEK SOFTCLIX LANCETS) lancets Test blood sugar(s) 2 times daily. Dx: Type 2 DM - Controlled E11.9 Insulin: No COMPOUNDED PRESCRIPTION Calcium 1000mg daily No current facility-administered medications for this visit. ALLERGIES: ALLERGIES Allergen Reactions Crestor [Rosuvastat* Myalgia Lisinopril Cough Norvasc [Amlodipine* Cough cough Penicillins Rash PAST MEDICAL HISTORY Diagnosis Date Dysmetabolic syndrome X Esophageal reflux Myalgia and myositis, unspecified Other and unspecified hyperlipidemia Unspecified essential hypertension Unspecified hypothyroidism PAST SURGICAL HISTORY Procedure Laterality [facility] 05/04/2012 Knee replacement, total right - [facility]. [facility] CONDYLEANDPLATU MEDIALANDLAT COMPARTMENTS 01/2012 left HYSTERECTOMY HX 1988 Hysterectomy, MATTHEW, ovaries retained, cervical CA LAPS SURG CHOLECYSTECTOMY W/CHOLANGIOGRAPHY 07/09/14 normal IOC NEUROPLASTY AND/TRANSPOS MEDIAN NRV CARPAL TUNNE Carpal tunnel decomp, bilateral TONSILLECTOMY PRIMARY/SECONDARY Tonsillectomy FAMILY HISTORY Problem Relation Age of Onset Lipids Mother Lipids Father Hypertension Mother Social History Tobacco Use Smoking status: Former Packs/day: 1.00 Years: 15.00 Pack years: 15.00 Types: Cigarettes Quit date: 10/24/1986 Years since quittin.0 Smokeless tobacco: Never Substance Use Topics Alcohol use: No Drug use: No Reviewed current medications, allergies, past medical history, surgical history, family history and social history today. REVIEW OF SYSTEMS All other reviewed and negative other than HPI. VITALS: BP 144/72 Pulse 82 Wt 97.1 kg (214 lb) SpO2 99% BMI 33.00 kg/m? Last 4 Encounter Wt Readings: Date: Wt: 11/15/2022 97.1 kg (214 lb) 10/26/2022 97.5 kg (215 lb) 03/10/2022 97.1 kg (214 lb) 08/28/2021 98.4 kg (217 lb) PHYSICAL EXAMINATION: General appearance: Well appearing, alert, in no acute distress, well-hydrated, well nourished. Skin: Skin color, texture, turgor normal, no suspicious rashes or lesions Head: Normocephalic, no masses, lesions, tenderness or abnormalities Lungs: Lungs clear to auscultation. No wheezing, rhonchi, rales Heart: RRR without murmur, gallop, or rubs. No ectopy Abdomen: Normal abdominal exam, Abdomen soft, non-tender. Bowel sounds normal. No masses, organomegaly Extremities: No deformities, edema, skin discoloration, clubbing or cyanosis. Good capillary refill. Tearful: ASSESSMENT/PLAN: 1. Grief reaction - ICD9: 309.0, ICD10: F43.21 (primary diagnosis) - zoloft. Discussed risks and benefits of new medication with the patient. Advised them to call if any side effects or questions. - off work for two weeks. See me in two weeks. 2. Adjustment disorder with other symptom - ICD9: 309.89, ICD10: F43.29 Nilsa Shahid MD RTO in two weeks. [facility] 10-26-2022 Note HNO ID: [id number] Author: Shantelle Beaver APRN.AGRICULTURAL EQUIPMENT SALES ENGINEER Service: ? Author Type: Nurse Practitioner Type: Progress Notes Filed: 10/26/2022 8:58 PM Note Text: This is a 67 year old female who presents today with: Patient presents with: Yearly Exam HISTORY OF PRESENT ILLNESS: Evi Kamara is a 67 year old female. Patient presents with: Yearly Exam Pt presents today for annual exam. HTN: Patient is compliant with meds Yes Monitors bp at home: occasionally -- still kind of high. Denies side effects: No. Chest pain: No. Dyspnea: No. Edema: No. Palpitations: No. Syncope: No. Headache: headache this morning. Dizziness: No. DM: Reports overall feeling well. Medication side effects: No. Home sugar checks: sometimes. Hypoglycemic spells: No. Watching diet: No. Unexpected weight loss: No. Polyuria, polydipsia: No. Vision Changes: No. Foot lesions or numbness or pain: No. Follows with endocrine. HYPERLIPIDEMIA: Patient is taking medications: Yes. Patient is watching diet: No. Patient denies myalgias: Yes. Patient denies gi upset: Yes HYPOTHYROID: Patient is compliant with medications: Yes Patient has changes in energy: No Patient has changes in hair or skin: Yes - refers some hair loss. Patient has temperature intolerance: doesn't do well with heat. Patient has weight changes: No Follows w/ endocrine -- Dr. Maldonado. Gout: Taking the allopurinol. Every once in awhile will get some sharp pains in the feet. Occasionally red/swollen, but doesn't last long. Dr. Beach -- pain management -- [place]. Has fibro and follows with pain pain management. Follows w/ pain management every two months. GERD: Controlled with PPI. PAST MEDICAL HISTORY: PAST MEDICAL HISTORY Diagnosis Date Dysmetabolic syndrome X Esophageal reflux Myalgia and myositis, unspecified Other and unspecified hyperlipidemia Unspecified essential hypertension Unspecified hypothyroidism PAST SURGICAL HISTORY Procedure Laterality Date [facility] CONDYLEANDPLATU MEDIALANDLAT COMPARTMENTS 05/04/2012 Knee replacement, total right - [facility]. ARTHRP [facility] CONDYLEANDPLATU MEDIALANDLAT COMPARTMENTS 01/2012 left HYSTERECTOMY HX 1988 Hysterectomy, MATTHEW, ovaries retained, cervical CA LAPS SURG CHOLECYSTECTOMY W/CHOLANGIOGRAPHY 07/09/14 normal IOC NEUROPLASTY AND/TRANSPOS MEDIAN NRV CARPAL TUNNE Carpal tunnel decomp, bilateral TONSILLECTOMY PRIMARY/SECONDARY Tonsillectomy ALLERGIES Crestor [Rosuvastatin], Lisinopril, Norvasc [Amlodipine Besylate], and Penicillins MEDICATIONS Current Outpatient Medications Medication Sig allopurinol (ZYLOPRIM) 100 mg tablet Take 2 tablets by mouth once daily. losartan (COZAAR) 50 mg tablet Take 1 tablet by mouth once daily. metoprolol succinate ER (TOPROL XL) 100 mg Take 1 tablet by mouth once daily. Omeprazole Magnesium (PRILOSEC OTC) 20 mg tablet Take 1 tablet by mouth once daily. ergocalciferol 50,000 unit capsule (VITAMIN D2, DRISDOL) Take 1 capsule by mouth one time a week. empagliflozin (JARDIANCE) 25 mg tablet Take 25 mg by mouth daily with breakfast. levothyroxine (SYNTHROID) 125 mcg tablet Take 125 mcg by mouth once daily. ezetimibe (ZETIA) 10 mg tablet Take 10 mg by mouth once daily. blood sugar diagnostic (ACCU-CHEK DADA PLUS TEST STRP) test strip Test blood sugar(s) 2 times daily. Dx: Type 2 DM - Controlled E11.9 Insulin: No Blood-Glucose Meter (ACCU-CHEK DADA PLUS METER) Dispense One meter. Patient is testing blood sugar twice daily. Is not using insulin. DX E11.9 Lancets (ACCU-CHEK SOFTCLIX LANCETS) lancets Test blood sugar(s) 2 times daily. Dx: Type 2 DM - Controlled E11.9 Insulin: No dulaglutide (TRULICITY) 1.5 mg/0.5 mL pnij Inject 1.5 mg subcutaneously one time a week. Inject once per week. Discard Pen After (Patient taking differently: Inject 3 mg subcutaneously one time a week. Inject once per week. Discard Pen After Dr Maldonado ) COMPOUNDED PRESCRIPTION Calcium 1000mg daily HYDROcodone-acetaminophen 5-325 mg per tablet Take 1 tablet by mouth every 8 hours as needed. clonazePAM (KLONOPIN) 1 mg tablet Take 1 mg by mouth once daily. ZANAFLEX 4 MG CAP nightly polyethylene glycol 3350 (MIRALAX, GLYCOLAX) 17 gram/dose powder Use as directed for Miralax / Gatorade Bowel Prep Kit Bisacodyl (DULCOLAX) 5 mg tab Use as directed for Miralax / Gatorade Bowel Prep Kit No current facility-administered medications for this visit. FAMILY HISTORY Problem Relation Age of Onset Lipids Mother Lipids Father Hypertension Mother Social History Tobacco Use Smoking status: Former Packs/day: 1.00 Years: 15.00 Pack years: 15.00 Types: Cigarettes Quit date: 10/24/1986 Years since quittin.0 Smokeless tobacco: Never Substance Use Topics Alcohol use: No Drug use: No EXAM: BP 148/90 Pulse 94 Resp 18 Ht 171.5 cm (5' 7.52 ) Wt 97.5 kg (215 lb) SpO2 97% BMI 33.16 (more content not included)... [facility] 10-26-2022 Instructions Shantelle Beaver APRN.AGRICULTURAL EQUIPMENT SALES ENGINEER - 10/26/2022 9:22 AM EST Check w/ insurance re: cologuard before completing. Schedule bone density. Schedule mammo. Increase the losartan to 75 mg (1 1/2 pills daily). Recheck in a month. BONE MINERAL DENSITY PATIENT INSTRUCTIONS ======= Bone mineral density testing measures the amount of calcium in certain parts of your bones. This information determines how strong your bones are. The test is used to detect osteoporosis, a disease in which the bone's mineral content and density are low, increasing a person's risk of fractures. The lumbar spine (lower back) and the hip are the skeletal sites usually examined. For the test, remember that: 1. You cannot take this test if you are . 2. Eat a normal diet on the day of the test. 3. Take your medications as you normally would. 4. DO NOT take calcium supplements (such as Tums) for 24 hours before the test. 5. On the day of the test, leave valuables (jewelry or credit cards) at home. 6. The test should be performed prior to oral, rectal or IV contrast studies, or at least 7 days after any of these studies. For the test, you may be asked to wear a hospital gown. You will lie on your back, on a padded table, in a comfortable position. Generally, you can resume your usual activities immediately. documented in this encounter [facility] 10-26-2022 History of Present illness Narrative This is a 67 year old female who presents today with: Patient presents with: Yearly Exam HISTORY OF PRESENT ILLNESS: Evi Kamara is a 67 year old female. Patient presents with: Yearly Exam Pt presents today for annual exam. HTN: Patient is compliant with meds Yes Monitors bp at home: occasionally -- still kind of high. Denies side effects: No. Chest pain: No. Dyspnea: No. Edema: No. Palpitations: No. Syncope: No. Headache: headache this morning. Dizziness: No. DM: Reports overall feeling well. Medication side effects: No. Home sugar checks: sometimes. Hypoglycemic spells: No. Watching diet: No. Unexpected weight loss: No. Polyuria, polydipsia: No. Vision Changes: No. Foot lesions or numbness or pain: No. Follows with endocrine. HYPERLIPIDEMIA: Patient is taking medications: Yes. Patient is watching diet: No. Patient denies myalgias: Yes. Patient denies gi upset: Yes HYPOTHYROID: Patient is compliant with medications: Yes Patient has changes in energy: No Patient has changes in hair or skin: Yes - refers some hair loss. Patient has temperature intolerance: doesn't do well with heat. Patient has weight changes: No Follows w/ endocrine -- Dr. Maldonado. Gout: Taking the allopurinol. Every once in awhile will get some sharp pains in the feet. Occasionally red/swollen, but doesn't last long. Dr. Beach -- pain management -- [place]. Has fibro and follows with pain pain management. Follows w/ pain management every two months. GERD: Controlled with PPI. PAST MEDICAL HISTORY: PAST MEDICAL HISTORY Diagnosis Date Dysmetabolic syndrome X Esophageal reflux Myalgia and myositis, unspecified Other and unspecified hyperlipidemia Unspecified essential hypertension Unspecified hypothyroidism PAST SURGICAL HISTORY Procedure Laterality Date [facility] CONDYLE&PLATU MEDIAL&LAT COMPARTMENTS 05/04/2012 Knee replacement, total right - [facility]. ARTHRP KNE CONDYLE&PLATU MEDIAL&LAT COMPARTMENTS 01/2012 left HYSTERECTOMY HX 1988 Hysterectomy, MATTHEW, ovaries retained, cervical CA LAPS SURG CHOLECYSTECTOMY W/CHOLANGIOGRAPHY 07/09/14 normal IOC NEUROPLASTY &/TRANSPOS MEDIAN NRV CARPAL TUNNE Carpal tunnel decomp, bilateral TONSILLECTOMY PRIMARY/SECONDARY <AGE 12 Tonsillectomy ALLERGIES Crestor [Rosuvastatin], Lisinopril, Norvasc [Amlodipine Besylate], and Penicillins MEDICATIONS Current Outpatient Medications Medication Sig allopurinol (ZYLOPRIM) 100 mg tablet Take 2 tablets by mouth once daily. losartan (COZAAR) 50 mg tablet Take 1 tablet by mouth once daily. metoprolol succinate ER (TOPROL XL) 100 mg Take 1 tablet by mouth once daily. Omeprazole Magnesium (PRILOSEC OTC) 20 mg tablet Take 1 tablet by mouth once daily. ergocalciferol 50,000 unit capsule (VITAMIN D2, DRISDOL) Take 1 capsule by mouth one time a week. empagliflozin (JARDIANCE) 25 mg tablet Take 25 mg by mouth daily with breakfast. levothyroxine (SYNTHROID) 125 mcg tablet Take 125 mcg by mouth once daily. ezetimibe (ZETIA) 10 mg tablet Take 10 mg by mouth once daily. blood sugar diagnostic (ACCU-CHEK DADA PLUS TEST STRP) test strip Test blood sugar(s) 2 times daily. Dx: Type 2 DM - Controlled E11.9 Insulin: No Blood-Glucose Meter (ACCU-CHEK DADA PLUS METER) Dispense One meter. Patient is testing blood sugar twice daily. Is not using insulin. DX E11.9 Lancets (ACCU-CHEK SOFTCLIX LANCETS) lancets Test blood sugar(s) 2 times daily. Dx: Type 2 DM - Controlled E11.9 Insulin: No dulaglutide (TRULICITY) 1.5 mg/0.5 mL pnij Inject 1.5 mg subcutaneously one time a week. Inject once per week. Discard Pen After (Patient taking differently: Inject 3 mg subcutaneously one time a week. Inject once per week. Discard Pen After Dr Maldonado ) COMPOUNDED PRESCRIPTION Calcium 1000mg daily HYDROcodone-acetaminophen 5-325 mg per tablet Take 1 tablet by mouth every 8 hours as needed. clonazePAM (KLONOPIN) 1 mg tablet Take 1 mg by mouth once daily. ZANAFLEX 4 MG CAP nightly polyethylene glycol 3350 (MIRALAX, GLYCOLAX) 17 gram/dose powder Use as directed for Miralax / Gatorade Bowel Prep Kit Bisacodyl (DULCOLAX) 5 mg tab Use as directed for Miralax / Gatorade Bowel Prep Kit No current facility-administered medications for this visit. FAMILY HISTORY Problem Relation Age of Onset Lipids Mother Lipids Father Hypertension Mother Social History Tobacco Use Smoking status: Former Packs/day: 1.00 Years: 15.00 Pack years: 15.00 Types: Cigarettes Quit date: 10/24/1986 Years since quittin.0 Smokeless tobacco: Never Substance Use Topics Alcohol use: No Drug use: No EXAM: BP 148/90 Pulse 94 Resp 18 Ht 171.5 cm (5' 7.52 ) Wt 97.5 kg (215 lb) SpO2 97% BMI 33.16 kg/m PHYSICAL EXAM: General Appearance: Well appearing, alert, in no acute distress, well-hydrated, well nourished.. Skin: Skin color, texture, turgor normal, no suspicious rashes or lesions. Head: Normocephalic, no masses, lesions, tenderness or abnormalities. Eyes: Anicteric sclera. Pupils are equally round and reactive to light. Extraocular movements are intact. . Ears: External ears normal, canals clear, Normal TMs bilaterally. Oropharynx: Lips, mucosa, and tongue normal, teeth and gums normal, oropharynx normal. Neck: Supple, no adenopathy; thyroid symmetric, normal size, no bruits. Lungs: Lungs clear to auscultation. No wheezing, rhonchi, rales.. Heart: RRR without murmur, gallop, or rubs. No ectopy. Abdomen: Abdomen soft, non-tender. Bowel sounds normal. No masses, organomegaly. Extremities: No deformities, edema, skin discoloration, clubbing or cyanosis. Good capillary refill. . Neurologic: Gait normal. Feet:Shoes and socks removed, No deformities, ulcers, calluses, normal distal pulses, and sensitive to 10 gm monofilament ASSESSMENT/PLAN: 1. HTN, goal below 140/90 - ICD9: 401.9, ICD10: I10 (primary diagnosis) - suboptimal control - Increase losartan(Cozaar) - Recommended regular aerobic exercise. - Recommend home blood pressure monitoring, to bring results in on next visit - Goal of BP <130/80 2. Asymptomatic postmenopausal status - ICD9: V49.81, ICD10: Z78.0 schedule - DXA-AXIAL SKELETON 3. Screening for colon cancer - ICD9: V76.51, ICD10: Z12.11 Encouraged to verify coverage w/ insurance. - COLOGUARD 4. Visit for screening mammogram - ICD9: V76.12, ICD10: Z12.31 - Set up for mammogram, yearly mammogram recommended - Follow up for annual exam in one year. - IVELISSE SCREENING W ELAN 5. Chronic gout of multiple sites, unspecified cause - ICD9: 274.02, ICD10: M1A.09X0 Stable. Continue allopurinol. 6. Type 2 diabetes mellitus without complication, without long-term current use of insulin (HCC) - ICD9: 250.00, ICD10: E11.9 Controlled. - Follows w/ endocrinology. 7. Acquired hypothyroidism - ICD9: 244.9, ICD10: E03.9 Continue same medication. Continue per endocrinology. 8. Gastroesophageal reflux disease without esophagitis - ICD9: 530.81, ICD10: K21.9 Stable on PPI. 9. Fibromyalgia - ICD9: 729.1, ICD10: M79.7 Continue per pain management. Discussed treatment plan and patient voices understanding. Patient's questions answered appropriately. Medications and potential side effects were discussed and patient voices understanding. Return to the office as scheduled or as needed for worsening/no improvement. Shantelle Beaver APRN.ABDIRIZAK documented in this encounter [facility] 07-26-2022 Miscellaneous Notes Last office visit: 08/28/21 F/u scheduled: none Blank Connell Ma Patient has been identified by name and date of : Yes Requested Prescriptions Pending Prescriptions Disp Refills losartan (COZAAR) 50 mg tablet 90 tablet 1 Sig: Take 1 tablet by mouth once daily. metoprolol succinate ER (TOPROL XL) 100 mg 90 tablet 3 Sig: Take 1 tablet by mouth once daily. Omeprazole Magnesium (PRILOSEC OTC) 20 mg tablet 90 tablet 1 Sig: Take 1 tablet by mouth once daily. allopurinol (ZYLOPRIM) 100 mg tablet 180 tablet 1 Sig: Take 2 tablets by mouth once daily. RX INSTRUCTIONS: Patient aware RX will be sent to pharmacy. No need to notify patient. Britney [place] [facility] [place] encounter [facility] 03-11-2022 Miscellaneous Notes Pt notified. Maryann Nails MA Phone call placed, brief message to contact a nurse. Mireya Olsen LPN Called and left message for patient to return call. She is positive for covid Negative for flu If she calls back please notify her. Thank you documented in this encounter [facility] 03-10-2022 History of Present illness Narrative This note was created using Remindriter. Subjective Evi Kamara is a 66 year old female. HPI Patient presents with nasal congestion, chills since last evening. She tested positive on an at home COVID test. She is vaccinated for COVID. She does work at [employer]. No chest pain or shortness of breath. Denies significant cough. She did try some Flonase [id number]. No loss of smell or taste. Review of Systems Constitutional: Positive for chills. HENT: Positive for congestion and postnasal drip. Negative for sore throat. Respiratory: Negative for cough. Cardiovascular: Negative. Gastrointestinal: Negative. Genitourinary: Negative. Musculoskeletal: Negative. Neurological: Negative. All other systems reviewed and are negative. PAST MEDICAL HISTORY Diagnosis Date Dysmetabolic syndrome X Esophageal reflux Myalgia and myositis, unspecified Other and unspecified hyperlipidemia Unspecified essential hypertension Unspecified hypothyroidism Current Outpatient Medications Medication Sig Dispense Refill metoprolol succinate ER (TOPROL XL) 100 mg Take 1 tablet by mouth once daily. 90 tablet 3 Omeprazole Magnesium (PRILOSEC OTC) 20 mg tablet Take 1 tablet by mouth once daily. 90 tablet 1 losartan (COZAAR) 50 mg tablet Take 1 tablet by mouth once daily. 90 tablet 1 allopurinol (ZYLOPRIM) 100 mg tablet Take 2 tablets by mouth once daily. 180 tablet 1 polyethylene glycol 3350 (MIRALAX, GLYCOLAX) 17 gram/dose powder Use as directed for Miralax / Gatorade Bowel Prep Kit 238 g 0 Bisacodyl (DULCOLAX) 5 mg tab Use as directed for Miralax / Gatorade Bowel Prep Kit 4 tablet 0 ergocalciferol 50,000 unit capsule (VITAMIN D2, DRISDOL) Take 1 capsule by mouth one time a week. 12 capsule 1 empagliflozin (JARDIANCE) 25 mg tablet Take 25 mg by mouth daily with breakfast. levothyroxine (SYNTHROID) 125 mcg tablet Take 125 mcg by mouth once daily. ezetimibe (ZETIA) 10 mg tablet Take 10 mg by mouth once daily. blood sugar diagnostic (ACCU-CHEK DADA PLUS TEST STRP) test strip Test blood sugar(s) 2 times daily. Dx: Type 2 DM - Controlled E11.9 Insulin: No 100 Strip 3 Blood-Glucose Meter (ACCU-CHEK DADA PLUS METER) Dispense One meter. Patient is testing blood sugar twice daily. Is not using insulin. DX E11.9 1 Each 0 Lancets (ACCU-CHEK SOFTCLIX LANCETS) lancets Test blood sugar(s) 2 times daily. Dx: Type 2 DM - Controlled E11.9 Insulin: No 200 Each 3 dulaglutide (TRULICITY) 1.5 mg/0.5 mL pnij Inject 1.5 mg subcutaneously one time a week. Inject once per week. Discard Pen After (Patient taking differently: Inject 3 mg subcutaneously one time a week. Inject once per week. Discard Pen After Dr Maldonado ) 4 Pen 3 COMPOUNDED PRESCRIPTION Calcium 1000mg daily HYDROcodone-acetaminophen 5-325 mg per tablet Take 1 tablet by mouth every 8 hours as needed. clonazePAM (KLONOPIN) 1 mg tablet Take 1 mg by mouth once daily. ZANAFLEX 4 MG CAP nightly 0 No current facility-administered medications for this visit. PAST SURGICAL HISTORY Procedure Laterality Date ARTHRP KNE CONDYLE&PLATU MEDIAL&LAT COMPARTMENTS 05/04/2012 Knee replacement, total right - [facility]. ARTHRP KNE CONDYLE&PLATU MEDIAL&LAT COMPARTMENTS 01/2012 left HYSTERECTOMY HX 1988 Hysterectomy, MATTHEW, ovaries retained, cervical CA LAPS SURG CHOLECYSTECTOMY W/CHOLANGIOGRAPHY 07/09/14 normal IOC NEUROPLASTY &/TRANSPOS MEDIAN NRV CARPAL TUNNE Carpal tunnel decomp, bilateral TONSILLECTOMY PRIMARY/SECONDARY <AGE 11 Tonsillectomy FAMILY HISTORY Problem Relation Age of Onset Lipids Mother Lipids Father Hypertension Mother Social History Tobacco Use Smoking status: Former Smoker Packs/day: 1.00 Years: 15.00 Pack years: 15.00 Types: Cigarettes Quit date: 10/24/1986 Years since quittin.4 Smokeless tobacco: Never Used Substance Use Topics Alcohol use: No Drug use: No Objective BP 122/72 Pulse 101 Temp 37.3 C (99.1 F) Resp 22 Wt 97.1 kg (214 lb) SpO2 98% BMI 32.81 kg/m Physical Exam Vitals reviewed. Constitutional: Appearance: Normal appearance. HENT: Head: Normocephalic and atraumatic. Right Ear: Tympanic membrane, ear canal and external ear normal. Left Ear: Tympanic membrane, ear canal and external ear normal. Nose: Congestion present. Mouth/Throat: Mouth: Mucous membranes are moist. Pharynx: Oropharynx is clear. Cardiovascular: Rate and Rhythm: Normal rate and regular rhythm. Heart sounds: Normal heart sounds. Pulmonary: Effort: Pulmonary effort is normal. Breath sounds: Normal breath sounds. Musculoskeletal: Cervical back: Neck supple. Lymphadenopathy: Cervical: No cervical adenopathy. Skin: General: Skin is warm and dry. Neurological: General: No focal deficit present. Mental Status: She is alert and oriented to person, place, and time. Assessment and Plan ASSESSMENT/PLAN: 1. Suspected COVID-19 virus infection - ICD9: V01.79, ICD10: Z20.822 COVID testing pending. Discussed quarantine. Discussed OTC meds. Discussed red flags to be seen in the ER. Patient agreeable. - COVID WITH FLUA+B, ROUTINE Luz Maria Lopez PA-C documented in this encounter [facility] 01-26-2022 Miscellaneous Notes Patient has been identified by name and date of : Yes Pending Prescriptions Disp Refills METOPROLOL SUCCINATE ER 100 MG TABLET,EXTENDED RELEASE 24 HR 90 tablet 3 Sig: Take 1 tablet by mouth once daily. ALEXIA: No OMEPRAZOLE MAGNESIUM 20 MG TABLET,DELAYED RELEASE 90 tablet 1 Sig: Take 1 tablet by mouth once daily. ALEXIA: No LOSARTAN 50 MG TABLET 90 tablet 1 Sig: Take 1 tablet by mouth once daily. ALEXIA: No ALLOPURINOL 100 MG TABLET 180 tablet 1 Sig: Take 2 tablets by mouth once daily. ALEXIA: No RX INSTRUCTIONS: Patient aware RX will be sent to pharmacy. No need to notify patient. Soraya Light MA Nikolay: 08/2021 Nov: 02/2022 Last refill: 07/2021 documented in this encounter [facility] documented as of this encounter (statuses as of 01/26/2022) [facility] History of Past illness Narrative* Problem Noted Date Resolved Date Biliary colic 07/05/2014 06/11/2017 Acute gastritis 08/27/2005 06/01/2016 Duodenitis 08/27/2005 06/01/2016 documented as of this encounter (statuses as of 02/19/2022) [facility] History of Past illness Narrative* Problem Noted Date Resolved Date Biliary colic 07/05/2014 06/11/2017 Acute gastritis 08/27/2005 06/01/2016 Duodenitis 08/27/2005 06/01/2016 documented as of this encounter (statuses as of 03/10/2022) [facility] History of Past illness Narrative* Problem Noted Date Resolved Date Biliary colic 07/05/2014 06/11/2017 Acute gastritis 08/27/2005 06/01/2016 Duodenitis 08/27/2005 06/01/2016 documented as of this encounter (statuses as of 03/11/2022) [address]12-2014 History of Past illness Narrative* Problem Noted Date Resolved Date Biliary colic 07/05/2014 06/11/2017 Acute gastritis 08/27/2005 06/01/2016 Duodenitis 08/27/2005 06/01/2016 documented as of this encounter (statuses as of 07/27/2022) [address]12-2014 History of Past illness Narrative* Problem Noted Date Resolved Date Biliary colic 07/05/2014 06/11/2017 Acute gastritis 08/27/2005 06/01/2016 Duodenitis 08/27/2005 06/01/2016 documented as of this encounter (statuses as of 10/28/2022) [facility] History of Past illness Narrative* Problem Noted Date Resolved Date Biliary colic 07/05/2014 06/11/2017 Acute gastritis 08/27/2005 06/01/2016 Duodenitis 08/27/2005 06/01/2016 documented as of this encounter (statuses as of 11/17/2022) [facility] History of Past illness Narrative* Problem Noted Date Resolved Date Biliary colic 07/05/2014 06/11/2017 Acute gastritis 08/27/2005 06/01/2016 Duodenitis 08/27/2005 06/01/2016 documented as of this encounter (statuses as of 11/23/2022) [facility] History of Past illness Narrative* Problem Noted Date Resolved Date Biliary colic 07/05/2014 06/11/2017 Acute gastritis 08/27/2005 06/01/2016 Duodenitis 08/27/2005 06/01/2016 documented as of this encounter (statuses as of 12/01/2022) [address]12-2014 History of Past illness Narrative* Problem Noted Date Resolved Date Biliary colic 07/05/2014 06/11/2017 Acute gastritis 08/27/2005 06/01/2016 Duodenitis 08/27/2005 06/01/2016 documented as of this encounter (statuses as of 01/17/2023) [place] [address]-12-2014 History of Past illness Narrative* Problem Noted Date Resolved Date Biliary colic 07/05/2014 06/11/2017 Acute gastritis 08/27/2005 06/01/2016 Duodenitis 08/27/2005 06/01/2016 documented as of this encounter (statuses as of 02/04/2023) [facility] of Past illness Narrative* Problem Noted Date Resolved Date Biliary colic 07/05/2014 06/11/2017 BMI 39.0-39.9,adult 04/03/2014 03/02/2023 Acute gastritis 08/27/2005 06/01/2016 Duodenitis 08/27/2005 06/01/2016 documented as of this encounter (statuses as of 03/02/2023) [facility] History of Past illness Narrative* Problem Noted Date Resolved Date Biliary colic 07/05/2014 06/11/2017 BMI 39.0-39.9,adult 04/03/2014 03/02/2023 Acute gastritis 08/27/2005 06/01/2016 Duodenitis 08/27/2005 06/01/2016 documented as of this encounter (statuses as of 03/02/2023) [facility] of Past illness Narrative* Problem Noted Date Resolved Date Biliary colic 07/05/2014 06/11/2017 BMI 39.0-39.9,adult 04/03/2014 03/02/2023 Acute gastritis 08/27/2005 06/01/2016 Duodenitis 08/27/2005 06/01/2016 documented as of this encounter (statuses as of 03/07/2023) [facility] History of Past illness Narrative* Problem Noted Date Resolved Date Biliary colic 07/05/2014 06/11/2017 BMI 39.0-39.9,adult 04/03/2014 03/02/2023 Acute gastritis 08/27/2005 06/01/2016 Duodenitis 08/27/2005 06/01/2016 documented as of this encounter (statuses as of 03/23/2023) [facility] History of Past illness Narrative* Problem Noted Date Diagnosed Date Resolved Date Biliary colic 07/05/2014 06/11/2017 BMI 39.0-39.9,adult 04/03/2014 03/02/20 Acute gastritis 08/27/2005 06/01/2016 Duodenitis 08/27/2005 06/01/2016 documented as of this encounter (statuses as of 05/23/2023) [facility] History of Past illness Narrative* Problem Noted Date Diagnosed Date Resolved Date Biliary colic 07/05/2014 06/11/2017 BMI 39.0-39.9,adult 04/03/2014 03/02/20 23 Acute gastritis 08/27/2005 06/01/2016 Duodenitis 08/27/2005 06/01/2016 documented as of this encounter (statuses as of 06/22/2023) [facility] History of Past illness Narrative* Problem Noted Date Diagnosed Date Resolved Date Biliary colic 07/05/2014 06/11/2017 BMI 39.0-39.9,adult 04/03/2014 03/02/20 23 Acute gastritis 08/27/2005 06/01/2016 Duodenitis 08/27/2005 06/01/2016 documented as of this encounter (statuses as of 08/05/2023) [facility] of Past illness Narrative* Problem Noted Date Diagnosed Date Resolved Date Biliary colic 07/05/2014 06/11/2017 BMI 39.0-39.9,adult 04/03/2014 03/02/20 23 Acute gastritis 08/27/2005 06/01/2016 Duodenitis 08/27/2005 06/01/2016 documented as of this encounter (statuses as of 09/05/2023) [facility] of Past illness Narrative* Problem Noted Date Diagnosed Date Resolved Date Biliary colic 07/05/2014 06/11/2017 BMI 39.0-39.9,adult 04/03/2014 03/02/20 23 Acute gastritis 08/27/2005 06/01/2016 Duodenitis 08/27/2005 06/01/2016 documented as of this encounter (statuses as of 09/14/2023) [facility] History of Past illness Narrative* Problem Noted Date Diagnosed Date Resolved Date Biliary colic 07/05/2014 06/11/2017 BMI 39.0-39.9,adult 04/03/2014 03/02/20 23 Acute gastritis 08/27/2005 06/01/2016 Duodenitis 08/27/2005 06/01/2016 documented as of this encounter (statuses as of 10/08/2023) [facility] note* Diagnosis HTN, goal below 140/90 Unspecified essential hypertension Chronic gout of multiple sites, unspecified cause documented in this encounter [facility] note* Diagnosis Type 2 diabetes mellitus without complication, without long-term current use of insulin (HCC) documented in this encounter [facility] note* Diagnosis Suspected COVID-19 virus infection- Primary documented in this encounter [facility] note* Diagnosis HTN, goal below 140/90 Unspecified essential hypertension Chronic gout of multiple sites, unspecified cause documented in this encounter [facility] note* Diagnosis HTN, goal below 140/90- Primary Unspecified essential hypertension Asymptomatic postmenopausal status Screening for colon cancer Special screening for malignant neoplasms, colon Visit for screening mammogram Other screening mammogram Chronic gout of multiple sites, unspecified cause Type 2 diabetes mellitus without complication, without long-term current use of insulin (HCC) Acquired hypothyroidism Unspecified hypothyroidism Gastroesophageal reflux disease without esophagitis Esophageal reflux Fibromyalgia Mylagia and myositis, unspecified documented in this encounter [facility] note* Diagnosis Positive colorectal cancer screening using Cologuard test- Primary documented in this encounter [facility] note* Diagnosis Grief reaction- Primary Adjustment disorder with depressed mood Type 2 diabetes mellitus without complication, without long-term current use of insulin (HCC) Acquired hypothyroidism Unspecified hypothyroidism HTN, goal below 140/90 Unspecified essential hypertension Hypertriglyceridemia Pure hyperglyceridemia documented in this encounter [facility] note* Diagnosis Chronic gout of multiple sites, unspecified cause documented in this encounter [facility] note* Diagnosis HTN, goal below 140/90 Unspecified essential hypertension Chronic gout of multiple sites, unspecified cause documented in this encounter [facility] note* Diagnosis HTN, goal below 140/90- Primary Unspecified essential hypertension Fibromyalgia Mylagia and myositis, unspecified Gastroesophageal reflux disease without esophagitis Esophageal reflux Type 2 diabetes mellitus without complication, without long-term current use of insulin (HCC) Acquired hypothyroidism Unspecified hypothyroidism Chronic gout of foot, unspecified cause, unspecified laterality Vitamin D deficiency Unspecified vitamin D deficiency Class 1 obesity with body mass index (BMI) of 33.0 to 33.9 in adult, unspecified obesity type, unspecified whether serious comorbidity present documented in this encounter [facility] note* Diagnosis Positive colorectal cancer screening using Cologuard test documented in this encounter [facility] note* Diagnosis Vitamin D deficiency Unspecified vitamin D deficiency Chronic gout of multiple sites, unspecified cause documented in this encounter [facility] note* Diagnosis HTN, goal below 140/90 Unspecified essential hypertension Chronic gout of multiple sites, unspecified cause documented in this encounter [facility] note* Diagnosis Type 2 diabetes mellitus without complication, without long-term current use of insulin (HCC)- Primary Chronic gout of multiple sites, unspecified cause Vitamin D deficiency Unspecified vitamin D deficiency Fibromyalgia Mylagia and myositis, unspecified HTN, goal below 140/90 Unspecified essential hypertension Acquired hypothyroidism Unspecified hypothyroidism Right thyroid nodule Nontoxic uninodular goiter Goiter Goiter, unspecified Obesity, Class II, BMI 35-39.9 Obesity, unspecified Positive colorectal cancer screening using Cologuard test Screening breast examination Breast screening, unspecified Encounter for screening mammogram for malignant neoplasm of breast Other screening mammogram documented in this encounter [facility] note* Diagnosis Sore throat- Primary Acute pharyngitis Acute cough documented in this encounter [facility] note* Diagnosis Sinobronchitis- Primary Unspecified sinusitis (chronic) documented in this encounter [facility] for referral (narrative)* Diagnostic Procedure Only (Routine) - Pending Review Specialty Diagnoses / Procedures Referred By Abhishek lua Referred To Contact [facility] Diagnoses Visit for screening mammogram Procedures IVELISSE SCREENING W ELAN SCREENING DIGITAL BREAST TOMOSYNTHESIS BI SCREENING MAMMOGRAPHY BI 2-VIEW BREAST INC Shantelle Rivera APRN.CNP [address] [place] [address] [facility] [address] [place] [id number] Referral ID Status Reason Start Date Expiration Date Visits Requested Visits Authorized [id number] Pending Review Auto-Generat ed Referral 10/26/2022 11/25/2023 1 1 DRE [facility] for referral (narrative)* Diagnostic Procedure Only (Routine) - Authorized Specialty Diagnoses / Procedures Referred By Abhishek lua Referred To Contact [facility] Diagnoses Screening breast examination Encounter for screening mammogram for malignant neoplasm of breast Procedures IVELISSE SCREENING W ELAN SCREENING DIGITAL BREAST TOMOSYNTHESIS BI SCREENING MAMMOGRAPHY BI 2-VIEW BREAST INC CAD Nilsa Shahid MD [address] [place] [address] [facility] [address] [place] [address] Referral ID Status Reason Start Date Expiration Date Visits Requested Visits Authorized [id number] Authorized Auto-Generat ed Referral 3 10/04/2024 1 1 * Consult, Test, Treat (Routine) - Authorized Specialty Diagnoses / Procedures Referred By Abhishek lua Referred To Contact General Surgery Diagnoses Positive colorectal cancer screening using Cologuard test Procedures CONSULT TO GENERAL SURGERY OFFICE/OUTPATIENT [facility] 60-74 MINUTES Nilsa Shahid MD [address] [place] [address] Referral ID Status Reason Start Date Expiration Date Visits Requested Visits Authorized [id number] Authorized PCP Requested Referral 3 09/04/2024 1 1 [facility] Advance Directives No Advanced Directives Records FoundDocuments on File Type Date Recorded Patient Product Marketing Director Expl anation Advance Directive(s) 05/18/2021 4:31 PM Health Concerns Infection Onset Date Last Indicated Resolved Time COVID-19 Rule-Out 03/10/2022 03/10/2022 03/11/2022 6:03 AM EDT COVID-19 Confirmed 03/10/2022 03/10/2022 Reason for Referral Specialty Diagnoses / Procedures Referred By Abhishek lua Referred To Contact General Surgery Diagnoses Positive colorectal cancer screening using Cologuard test Procedures CONSULT TO GENERAL SURGERY OFFICE/OUTPATIENT [facility] 60-74 MINUTES Shantelle Beaver APRN.CNP [address] [place] [address] Referral ID Status Reason Start Date Expiration Date Visits Requested Visits Authorized [id number] Authorized PCP Requested Referral 11/15/2022 11/15/2023 1 1 Summary Purpose Family History No Family History Records Found Additional Source Comments Source Comments (unrecognize d section and content) In the event this informatio n is protected by the Federal Confidentiality of Alcohol and Drug Abuse Patient Records regulations: The Federal rules restrict any use of the information to criminally investigate or prosecute any alcohol or drug abuse patient.[facility] the event this information is protected by the Federal Confidentiality of Alcohol and Drug Abuse Patient Records regulations: The Federal rules restrict any use of the information to criminally investigate or prosecute any alcohol or drug abuse patient.[facility] the event this information is protected by the Federal Confidentiality of Alcohol and Drug Abuse Patient Records regulations: The Federal rules restrict any use of the information to criminally investigate or prosecute any alcohol or drug abuse patient.[facility] the event this information is protected by the Federal Confidentiality of Alcohol and Drug Abuse Patient Records regulations: The Federal rules restrict any use of the information to criminally investigate or prosecute any alcohol or drug abuse patient.[facility] the event this information is protected by the Federal Confidentiality of Alcohol and Drug Abuse Patient Records regulations: The Federal rules restrict any use of the information to criminally investigate or prosecute any alcohol or drug abuse patient.[facility] the event this information is protected by the Federal Confidentiality of Alcohol and Drug Abuse Patient Records regulations: The Federal rules restrict any use of the information to criminally investigate or prosecute any alcohol or drug abuse patient.[facility] the event this information is protected by the Federal Confidentiality of Alcohol and Drug Abuse Patient Records regulations: The Federal rules restrict any use of the information to criminally investigate or prosecute any alcohol or drug abuse patient.[facility] the event this information is protected by the Federal Confidentiality of Alcohol and Drug Abuse Patient Records regulations: The Federal rules restrict any use of the information to criminally investigate or prosecute any alcohol or drug abuse patient.[facility] the event this information is protected by the Federal Confidentiality of Alcohol and Drug Abuse Patient Records regulations: The Federal rules restrict any use of the information to criminally investigate or prosecute any alcohol or drug abuse patient.[facility] the event this information is protected by the Federal Confidentiality of Alcohol and Drug Abuse Patient Records regulations: The Federal rules restrict any use of the information to criminally investigate or prosecute any alcohol or drug abuse patient.[facility] the event this information is protected by the Federal Confidentiality of Alcohol and Drug Abuse Patient Records regulations: The Federal rules restrict any use of the information to criminally investigate or prosecute any alcohol or drug abuse patient.[facility] the event this information is protected by the Federal Confidentiality of Alcohol and Drug Abuse Patient Records regulations: The Federal rules restrict any use of the information to criminally investigate or prosecute any alcohol or drug abuse patient.[facility] the event this information is protected by the Federal Confidentiality of Alcohol and Drug Abuse Patient Records regulations: The Federal rules restrict any use of the information to criminally investigate or prosecute any alcohol or drug abuse patient.[facility] the event this information is protected by the Federal Confidentiality of Alcohol and Drug Abuse Patient Records regulations: The Federal rules restrict any use of the information to criminally investigate or prosecute any alcohol or drug abuse patient.[facility] the event this information is protected by the Federal Confidentiality of Alcohol and Drug Abuse Patient Records regulations: The Federal rules restrict any use of the information to criminally investigate or prosecute any alcohol or drug abuse patient.[facility] System[facility] the event this information is protected by the Federal Confidentiality of Alcohol and Drug Abuse Patient Records regulations: The Federal rules restrict any use of the information to criminally investigate or prosecute any alcohol or drug abuse patient.[facility] System[facility] the event this information is protected by the Federal Confidentiality of Alcohol and Drug Abuse Patient Records regulations: The Federal rules restrict any use of the information to criminally investigate or prosecute any alcohol or drug abuse patient.[facility] System[facility] the event this information is protected by the Federal Confidentiality of Alcohol and Drug Abuse Patient Records regulations: The Federal rules restrict any use of the information to criminally investigate or prosecute any alcohol or drug abuse patient.[facility] System[facility] the event this information is protected by the Federal Confidentiality of Alcohol and Drug Abuse Patient Records regulations: The Federal rules restrict any use of the information to criminally investigate or prosecute any alcohol or drug abuse patient.[facility] System[facility] the event this information is protected by the Federal Confidentiality of Alcohol and Drug Abuse Patient Records regulations: The Federal rules restrict any use of the information to criminally investigate or prosecute any alcohol or drug abuse patient.[facility] System[facility] the event this information is protected by the Federal Confidentiality of Alcohol and Drug Abuse Patient Records regulations: The Federal rules restrict any use of the information to criminally investigate or prosecute any alcohol or drug abuse patient.[facility] Reason for Visit (unrecogniz ed section and content) Reason Comments Nasal Congestion x today, positive ra pid test Reason Comments Results Reason Comments Refill Request Reason Comments Yearly Exam Reason Comments Results Reason Comments FMLA Paperwork Reason Comments Recheck 2 week medication Reason Onset Date Comments Refill Request 01/16/2023 Reason Onset Date Comments Refill Request 02/04/2023 Reason Comments Follow Up Reason Comments Consult Colonoscopy consult, positive cologuard. Specialty Diagnoses / Procedures Referred By Abhishek lua Referred To Contact General Surgery Diagnoses Positive colorectal cancer screening using Cologuard test Procedures CONSULT TO GENERAL SURGERY OFFICE/OUTPATIENT [facility] 60-74 MINUTES Shantelle Beaver, [employer] EQUIPMENT SALES ENGINEER [address] [place] [address] Referral ID Status Reason Start Date Expiration Date V isits Requested Visits Authorized [id number] Closed PCP Requested Referral 11/15/2022 11/15/2023 1 1 Reason Onset Date Comments Refill Request 03/22/2023 Reason Onset Date Comments Refill Request 05/21/2023 Reason Onset Date Comments Refill Request 06/22/2023 Reason Onset Date Comments Refill Request 08/04/2023 Reason Comments 6 Month Exam Reason Comments Sore Throat Cough and congestion x1 week. Reason Comments Cough ANTON, ST, bodyaches x1 week Care Teams (unrecognized sec tion and content) Flow Worker Relationship Specialty Start Date End Date Nilsa Shahid MD [address] [place] [address] PCP - General Family Practice 06/20/17 Flow Worker Relationship Specialty Start Date End Date Nilsa Shahid MD [address] [place] [address] PCP - General Family Practice 06/20/17 Flow Worker Relationship Specialty Start Date End Date Nilsa Shahid MD [address] [place] [address] PCP - General Family Practice 06/20/17 Flow Worker Relationship Specialty Start Date End Date Nilsa Shahid MD [address] [place] [address] PCP - General Family Medicine 06/20/17 Flow Worker Relationship Specialty Start Date End Date Nilsa Shahid MD [address] [place] [address] PCP - General Family Medicine 06/20/17 Flow Worker Relationship Specialty Start Date End Date Nilsa Shahid MD [address] [place] [address] PCP - General Family Medicine 06/20/17 Flow Worker Relationship Specialty Start Date End Date Nilas Shahid MD [address] [place] [address] PCP - General Family Medicine 06/20/17 Flow Worker Relationship Specialty Start Date End Date Nilsa Shahid MD [address] [place] [address] PCP - General Family Medicine 06/20/17 Flow Worker Relationship Specialty Start Date End Date Nilsa Shahid MD [address] [place] [address] PCP - General Family Medicine 06/20/17 Flow Worker Relationship Specialty Start Date End Date Nilsa Shahid MD [address] [place] [address] PCP - General Family Medicine 06/20/17 Flow Worker Relationship Specialty Start Date End Date Nilsa Shahid MD [address] [place] [address] PCP - General Family Medicine 06/20/17 Flow Worker Relationship Specialty Start Date End Date Nilsa Shahid MD [address] [place] [address] PCP - General Family Medicine 06/20/17 Flow Worker Relationship Specialty Start Date End Date Nilsa Shahid MD [address] [place] [address] PCP - General Family Medicine 06/20/17 Flow Worker Relationship Specialty Start Date End Date Nilsa Shahid MD [address] [place] [address] PCP - General Family Medicine 06/20/17 Flow Worker Relationship Specialty Start Date End Date Nilsa Shahid MD [address] [place] [address] PCP - General Family Medicine 06/20/17 Flow Worker Relationship Specialty Start Date End Date Nilsa Shahid MD [address] [place] [address] PCP - General Family Medicine 06/20/17 Flow Worker Relationship Specialty Start Date End Date Nilsa Shahid MD [address] [place] [address] PCP - General Family Medicine 06/20/17 INFORMATION SOURCE (unrecogn ized section and content) FOR RECORDS PERTAINING TO PATIENTS WHO ARE OR HAVE BEEN ENROLLED IN A CHEMICAL DEPENDENCY/SUBSTANCEABUSE PROGRAM, SOME INFORMATION MAY BE OMITTED. This clinical summary was aggregated from multiple sources. Caution should be exercised in using it in the provision of clinical care. This summary normalizes information from multiple sources, and as a consequence, information in this document may materially change the coding, format and clinical context of patient data. In addition, data may be omitted in some cases. CLINICAL DECISIONS SHOULD BE BASED ON THE PRIMARY CLINICAL RECORDS. [employer] provides no warranty or guarantee of the accuracy or completeness of information in this document.
== END | disposition home or self-care (01) ==
LOC: OPBI 08:19
PROVIDERS: PCP Family Medicine; Referring Provider Family Medicine; Visit Provider Family Medicine
DX: Z12.31 Encounter for screening mammogram for malignant neoplasm of breast (principal)
CPT/HCPCS: 77063; 77067

== ENCOUNTER 2024-02-27 06:24 | Day surgery (SDC) | payer OTHER, SELFPAY ==
[2024-02-27 06:49] VITALS: BP 165/72; PULSE 103; RESP 16; TEMP 36.5; O2SAT 97; BMI 34.4
[2024-02-27] MEDS: Lactated Ringers 1,000 ML 15 ML IV (06:53)
[2024-02-27 07:06] LABS: Bedside Glucose 173 mg/dL (74-106)
--- NOTE | 2024-02-27 07:21 | HP.PCM_ITS ---
HPI - General General Date of Service: 02/27/24 HPI Narrative EVI SHARPE, is a 68 F who presents for EGD and colonoscopy. Patient still states that she has no symptoms on medication for reflux. She has bowel moods about every other day and denies any blood since office visit. office visit 01/12/24 HPI HPI: 68-year-old female presents due to positive Cologuard. Patient states she had an EGD and colonoscopy maybe about 10 years ago at [facility]. Patient states his normal colonoscopy and EGD to showed some irritation. Patient has been on Prilosec 20 mg p.o. daily patient denies any symptoms being on the medication. Patient has bowel movements daily says she only occasionally has some bright red blood and patient does have known hemorrhoids. Patient denies any family history of colon cancer. Patient denies chronic abdominal p ain/nausea/vomiting. [facility] Medical History (Updated 02/22/24 @ 12:32 by Karuna Reddy) Arthritis Bilateral hip pain Carpal tunnel syndrome Diabetes Former smoker GERD (gastroesophageal reflux disease) Goiter Gout High cholesterol High triglycerides History of edema History of stress test Insulin dependent diabetes mellitus Leg cramps Long-term insulin use Osteoarthritis of left hip Osteoarthritis of right hip PONV (postoperative nausea and vomiting) Positive colorectal cancer screening using Cologuard test Thyroid disease Thyroid nodule Vitamin deficiency Wears dentures Wears glasses Home Medications allopurinol 100 mg tablet 200 mg PO DAILYCM 05/03/16 [History Last Taken 02/25/24] clonazepam 1 mg tablet 1 mg PO QHS 05/03/16 [History Last Taken 02/25/24] omeprazole 20 mg capsule,delayed release 20 mg PO DAILY 05/03/16 [History Last Taken 02/25/24] tizanidine 4 mg tablet 4 mg PO QHS 05/03/16 [History Last Taken 02/25/24] metoprolol succinate 100 mg tablet,extended release 24 hr 100 mg PO DAILY 01/18/20 [History Last Taken 02/25/24] aspirin 81 mg tablet,delayed release (Adult Aspirin Regimen) 81 mg PO DAILY 08/21/20 [History Last Taken 02/19/24] dexabulp-ayea-ollr 8 mg-folic 400 mcg-K 50 mcg-lutein 300 mcg tablet (Centrum Silver Women) 1 tab PO DAILY 08/21/20 [History Last Taken 02/25/24] acetaminophen 325 mg tablet 650 mg PO Q6 PRN pain 02/22/23 [History Last Taken 02/25/24] ergocalciferol (vitamin D2) 1,250 mcg (50,000 unit) capsule 50,000 unit PO .COMPLEX #3 caps 02/22/23 [Rx Last Taken 02/25/24] hydrocodone-acetaminophen 5-325mg 5mg-325mg 1 tab PO TID PRN pain 02/22/23 [History Last Taken 02/25/24] dulaglutide 4.5 mg/0.5 mL subcutaneous pen injector (Trulicity) 4.5 mg (0.5 mL) subcut QWEEK #2 mL 12/29/23 [Rx Last Taken 02/19/24] ezetimibe 10 mg tablet 10 mg PO DAILY #30 tabs 12/29/23 [Rx Last Taken 02/25/24] glimepiride 2 mg tablet 2 mg PO BID #180 tabs 12/29/23 [Rx Last Taken 02/25/24] levothyroxine 125 mcg tablet 125 mcg PO DAILY #30 tabs 12/29/23 [Rx Last Taken 02/25/24] pen needle, diabetic 32 gauge x 5/32 (BD Ultra-Fine Kendal Pen Needle) #100 ea [Rx Last Taken Unknown] rosuvastatin 10 mg tablet 10 mg PO DAILY #30 tabs 12/29/23 [Rx Last Taken 02/25/24] OneTouch Verio Flex meter (blood-glucose meter) #1 ea 01/06/24 [Rx Last Taken Unknown] OneTouch Verio test strips (blood sugar diagnostic) #100 ea 01/06/24 [Rx Last Taken Unknown] insulin degludec 100 unit/mL (3 mL) subcutaneous pen (Tresiba FlexTouch U-100 insulin) 15 unit subcut QHS 02/22/24 [History Last Taken 02/25/24] Allergy/AdvReac Type Severity Reaction Status Date / Time Penicillins Allergy Rash Verified 02/27/24 06:47 amlodipine [From Norvas] AdvReac Mild Cough Verified 02/27/24 06:47 lisinopril AdvReac Mild Cough Verified 02/27/24 06:47 hydrochlorothiazide AdvReac gout Verified 02/27/24 06:47 Family History Sister Anemia Arthritis Bleeding disorder BLOOD TRANSFUSIONS Diabetes Hypertension High cholesterol Seizures CVA (cerebral vascular accident) Mother Arthritis Bleeding disorder BLOOD TRANSFUSIONS Diabetes Hypertension High cholesterol Parkinson disease Son Congestive heart failure Surgical History History of carpal tunnel release of both wrists History of cholecystectomy History of hysterectomy History of tonsillectomy History of total bilateral knee replacement History of wisdom tooth extraction Social History Smoking Status: Former smoker alcohol intake: never substance use type: does not use what type of physical activity do you participate in: none Past Medical/Surgical History Planned Operation Planned Operative Procedure/s: EGD AND CSCOPE S.O.S: No Previous Hospitalizations/Surgeries HX Hospitalizations: No HX of Surgeries: RIGHT TOTAL KNEE 2012 LEFT TOTAL KNEE 2012 BILAT CARPAL TUNNEL RELEASE HEEL SPUR LEFT GALLBLADDER HYSTERECTOMY COLONOSCOPY/EGD Any Problems With Anesthesia: Yes (PONV) You/Your Family Experience Fever (Hyperthermia) With Anes: No Cholinesterase deficiency: No Cardiovascular Hx Chest Pain within Last 2 months: No Hx of Irregular Heartbeat and/or Afib: Yes (TACHYCARDIA YRS AGO. RESOLVED NOW) Hx Heart Attack: No Hx Congestive Heart Failure: No Hx Rheumatic Fever: No Hx Hypertension: Yes (BP CONTROLLED WITH MEDS) Hx Internal Defibrillator: No Hx Pacemaker: No Hx Cardiac Catheterization: No Hx Cardiac Surgery/Stents/Etc.: No Hx Stress Test: Yes (OVER 10 YRS AGO) Hx Pain in Legs when Walking/Leg Cramps: Yes (RIGHT KNEE PAIN) Respiratory Chronic Cough: No HX of Shortness of Breath: No Hoarseness: No Hx Chronic Obstructive Pulmonary Disease (COPD): No Hx Asthma: No Hx Emphysema: No Hx Sleep Apnea: No Hx Respiratory Tract Infection/Cold (presently): No Do You Snore Loudly (louder than talking or can be heard): No Do You Often Feel Tired/ Fatigued/ Sleepy Dring Daytime?: No Has Anyone Observed You Stop Breathing During Sleep?: No Result (for STOP score): Negative Hx Smoking: Yes Smoking Status: Former smoker Gastrointestinal Controlled With Meds: Yes Hx Gastrointestinal Disorders: No Hx Gastrointestinal Bleed: No Hx Ulcer: No Hx Hiatal Hernia: No Difficulty Chewing/Swallowing: No Special diet followed at home: Yes (DIABETIC) Hx Unplanned Weight Loss of 20#: No HX Unplanned Weight Gain of 20#: No Neurological Hx Seizures: No HX Syncope/Blackout Spells/Unconsciousness: No Hx Transient Ischemic Attacks (TIA): No Hx Multiple Sclerosis: No Hx Parkinson's Disease: No Hx Head/Neck Injury: Yes (NECK PAIN AT TIMES) Hx Headaches: No Hx Back Injury/Pain: Yes (LOW BACK PAIN AT ALL TIMES) Recent Onset of Speech Difficulty: No Restless Legs: Yes Does patient have nerve stimulator: No Blood Disorder Hx Leukemia: No Bleeding Tendencies: No Hx Deep Vein Thrombosis: No Hx High Cholesterol: Yes (ON MEDS) Blood Transmitted Disease: No Hx Hepatitis: No Hx Cirrhosis: No Hx Anemia: No Hx Blood Disorders: No Reproduction : No Is Patient Lactating: No Hx Hysterectomy: Yes Hx Tubal Ligation: No Are You Post Menopause: No Genitourinary Hx Renal Disease: No Musculoskeletal Hx Arthritis: Yes Hx Rheumatoid Arthritis: No Hx Gout: Yes Recent Onset of an Orthopedic Problem: No Endocrine Hx Diabetes: Yes Insulin: No Thyroid Disease: Yes (ON MEDS) Hx Steroid Therapy: Yes (PREDNISONE 1 MONTH AGO FOR KNEE PAIN) Psycho/Social Hx Substance Use: No Hx Alcohol Use: No Hx Anxiety: No Hx Depression: No Mental Illness: No Hx Dementia: No Miscellaneous Hx Cancer: No Recent Exposure to Contagious Disease: No Hx of C-Diff: No Any Loose Teeth: No (FULL SET ONLY WEARS UPPERS) Allergies Penicillins Allergy (Verified 02/27/24 06:47) Rash amlodipine [From Norvasc] Adverse Reaction (Mild, Verified 02/27/24 06:47) Cough lisinopril Adverse Reaction (Mild, Verified 02/27/24 06:47) Cough hydrochlorothiazide Adverse Reaction (Verified 02/27/24 06:47) gout Maternal: Family History Sister Anemia Arthritis Bleeding disorder BLOOD TRANSFUSIONS Diabetes Hypertension High cholesterol Seizures CVA (cerebral vascular accident) Mother Arthritis Bleeding disorder BLOOD TRANSFUSIONS Diabetes Hypertension High cholesterol Parkinson disease Son Congestive heart failure No pertinent history Paternal: Family History Sister Anemia Arthritis Bleeding disorder BLOOD TRANSFUSIONS Diabetes Hypertension High cholesterol Seizures CVA (cerebral vascular accident) Mother Arthritis Bleeding disorder BLOOD TRANSFUSIONS Diabetes Hypertension High cholesterol Parkinson disease Son Congestive heart failure No pertinent history Discharge Is Pt Admitted From a [facility], or a [facility]: No After D/C, Where Do you Plan to Go: Return Home From the PAT History Number of Risk Factors: 4 Vital Signs Vital Signs Vital Signs: 02/27/24 06:49 02/27/24 06:49 Temperature 97.7 F L Temperature Source Temporal Pulse Rate 103 H Respiratory Rate 16 Respiratory Pattern Normal Blood Pressure 165/72 H Blood Pressure Mean 103 Blood Pressure Source Monitor Blood Pressure Position Semi-Fowlers Blood Pressure Location Right Arm Pulse Ox 97 Oxygen Delivery Method Room Air Weight Weight: 220 lb Body Mass Index (BMI) 34.4 Physical Exam Const alert, oriented x3 and no apparent distress HEENT normocephalic and head/scalp atraumatic Resp normal respiratory effort Cardio regular rate GI soft to palpation and non-tender; Negative for non-distended Palpation: Negative for guarding Extremity no clubbing, cyanosis or edema Skin no rashes or lesions noted Neuro CN's II-XII intact bilaterally Psych mental status grossly normal Assessment & Plan Assessment/Plan (1) Positive colorectal cancer screening using Cologuard test: (2) GERD (gastroesophageal reflux disease): Surgery Risks - Colonoscopy I discussed with the patient the risks of the procedure: Yes Risks Include but are not Limited To: Plan for an EGD and colonoscopy Risks include but are not limited to: Bleeding, perforation requiring further surgery, inability to complete colonoscopy requiring barium enema.
--- NOTE | 2024-02-27 08:00 | IMM_PTH ---
PATIENT: EVI SHARPE LOC: EN U#:[id number] AGE/SX: 68/F ROOM: RE02/27/[address]: Dr. Harleen Khan MD : 1955 BED: DIS: 02/27/2024 SPEC #: [id number] RECD: 02/27/24 12:11 STATUS: DAVE REQ #: [id number] APRIL: 02/27/24 08:[address]: Harleen Khan DEPT: IMMUNOHISTOCHEMISTRY RECD BY: Ryne Dick ENTERED: 02/27/24 12:11 SP TYPE: IMMUNO OTHR DR: Dr. Johnny Shahid MD Tissues: A - Stomach, NOS Procedures: H Pylori (initial) PHYSICIAN & INSTITUTION [place] [address] SPECIMEN INFORMATION: Tissue Source: A- Antrum biopsy Clinical Info: Positive colorectal cancer screening using Cologuard test, GERD Specimen Number: [id number] CPT code: 90628 METHODOLOGY: Deparaffinized sections of prefer/formalin-fixed tissue or PAP/DQ stained slides are incubated with monoclonal/polyclonal antibodies/oligonucleotide probes. Localization is made via biotin free immunoperoxidase method. Appropriate controls are performed and reacted as expected. Results on target cell population are indicated in the following table: RESULTS: ANTIBODY / CLONE RESULT Block A H Pylori (polyclonal) negative These tests were developed and their performance characteristics determined by [facility]. They may not have been cleared or approved by the U.S. Food and Drug Administration. The FDA has determined that such clearance or approval is not necessary. The above immunohistochemical/dualISH markers are ordered and reviewed by the Pathologist. INTERPRETATION: A. Antrum, biopsy: Negative for Helicobacter pylori organisms. MARIA FERNANDA/ 02/28/24
--- NOTE | 2024-02-27 08:00 | COLBX_PTH ---
PATIENT: EVI SHARPE LOC: EN U#:[id number] AGE/SX: 68/F ROOM: RE02/27/[address]: Dr. Harleen Khan MD : 1955 BED: DIS: 02/27/2024 SPEC #: [id number] RECD: 02/27/24 09:53 STATUS: DAVE MARELY #: [id number] APRIL: 02/27/24 08:[address]: Harleen Khan DEPT: SURGICAL PATHOLOGY RECD BY: Mandeep Helm ENTERED: 02/27/24 12:28 SP TYPE: COLON BX OTHR DR: Dr. Johnny Shahid MD Tissues: A - Gastric mucous membrane B - Gastric mucous membrane C - Descending colon D - Rectum, NOS Procedures: Surgery Specimen Level IV HEADER OPERATION: Colonoscopy, EGD with biopsy, polypectomy, bipolar electrohemostasis PRE-OP DIAGNOSIS: Positive colorectal cancer screening using Cologuard test, GERD TISSUE SUBMITTED: A- Antrum biopsy, B- Gastric cardia polyp, C- Descending colon polyp, D- Rectum polyps x5 MICROSCOPIC DIAGNOSIS A. Antrum, biopsy: Mild gastritis. See microscopic description and comment. B. Gastric cardia polyp, polypectomy: A few minute fragments of benign gastric mucosa. Fragments of blood clots. See comment. C. Descending colon polyp, polypectomy: Fragments of tubular adenoma. D. Rectum polypx5, polypectomy: Fragments of tubular adenoma. Fragments of hyperplastic polyp. / 02/28/24 COMMENT A. The results of immunohistochemistry for Helicobacter pylori will be reported separately ([id number]). B. The specimen predominantly consists of blood clots. Correlation with clinical, endoscopic findings and appropriate follow up are necessary. MICROSCOPIC DESCRIPTION Slides are reviewed. A. The specimen shows fragments of gastric mucosa with chronic inflammatory cell infiltrates in the lamina propria consisting of lymphocytes and plasma cells, consistent with mild chronic gastritis. GROSS DESCRIPTION A. Received in fixative is one container labeled with the patient's name and designated Antrum biopsy. The specimen consists of two irregular fragments of light wen soft tissue that in aggregate measure 0.5 x 0.5 x 0.2 cm. The specimen is totally submitted in one cassette. B. Received in fixative is one container labeled with the patient's name and designated Gastric cardia polyp. The specimen consists of multiple irregular fragments of light wen soft tissue that in aggregate measure 2.0 x 0.5 x 0.2 cm. The specimen is totally submitted in one cassette. C. Received in fixative is one container labeled with the patient's name and designated Descending colon polyp. The specimen consists of multiple irregular fragments of light wen soft tissue that in aggregate measure 2.0 x 0.5 x 0.2 cm. The specimen is totally submitted in one cassette. D. Received in fixative is one container labeled with the patient's name and designated Rectum biopsy. The specimen consists of multiple irregular fragments of light wen soft tissue that in aggregate measure 2.0 x 0.5 x 0.3 cm. The specimen is totally submitted in one cassette. Eb 02/27/24 TC:1 CPT:31481u8
[2024-02-27 08:53] VITALS: BP 135/52; BP 165/72; PULSE 84; RESP 16; TEMP 36.6; O2SAT 98
--- NOTE | 2024-02-27 08:54 | OP.EGD_ITS ---
Patient Name: Deidra Kamara Procedure Date: 02/27/2024 7:46 AM Date of : 1955 Age: 68 Procedure: Upper GI endoscopy Indications: Heartburn Providers: Harleen Khan MD Referring MD: Johnny Shahid Medicines: Monitored Anesthesia Care Patient Profile: This is a 68 year old female. Complications: No immediate complications. Procedure: Pre-Anesthesia Assessment: - Prior to the procedure, a History and Physical was performed, and patient medications and allergies were reviewed. The patient's tolerance of previous anesthesia was also reviewed. The risks and benefits of the procedure and the sedation options and risks were discussed with the patient. All questions were answered, and informed consent was obtained. Prior Anticoagulants: The patient has taken no anticoagulant or antiplatelet agents except for aspirin. ASA Grade Assessment: Per anesthesia. After reviewing the risks and benefits, the patient was deemed in satisfactory condition to undergo the procedure. After obtaining informed consent, the endoscope was passed under direct vision. Throughout the procedure, the patient's blood pressure, pulse, and oxygen saturations were monitored continuously. The colonoscope was introduced through the mouth, and advanced to the second part of duodenum. The upper GI endoscopy was accomplished without difficulty. The patient tolerated the procedure well. Scope In: 7:56:45 AM Scope Out: 8:10:47 AM Total Procedure Duration Time 0 hours 14 minutes 2 seconds Findings: The Z-line was variable and was found 40 cm from the incisors. The examined duodenum was normal. Diffuse moderately erythematous mucosa without bleeding was found in the gastric antrum. Biopsies were taken with a cold forceps for histology. Biopsies were taken with a cold forceps for Helicobacter pylori cultures. Localized moderately erythematous mucosa with bleeding was found in the cardia. Coagulation for hemostasis using heater probe was successful. Biopsies were taken with a cold forceps for histology. Impression: - Z-line variable, 40 cm from the incisors. - Normal examined duodenum. - Erythematous mucosa in the antrum. Biopsied. - Erythematous mucosa in the cardia. Treated with a heater probe. Biopsied. Recommendation: - Await pathology results. - Discharge patient to home. - Resume previous diet. - Await pathology results. - Use Prilosec (omeprazole) 40 mg PO daily. - Use sucralfate tablets 1 gram PO QID. - Continue present medications. Procedure Code(s): --- Professional --- 18209, 59,PT, Esophagogastroduodenoscopy, flexible, transoral; with control of bleeding, any method 65330, Esophagogastroduodenoscopy, flexible, transoral; with biopsy, single or multiple Diagnosis Code(s): --- Professional --- K22.89, Other specified disease of esophagus K31.89, Other diseases of stomach and duodenum R12, Heartburn CPT copyright 2021 [employer]. All rights reserved. The codes documented in this report are preliminary and upon senior benefits specialist review may be revised to meet current compliance requirements. MD Harleen Parry MD 02/27/2024 8:53:44 AM This report has been signed electronically. Number of Addenda: 0 Note Initiated On: 02/27/2024 7:46 AM
--- NOTE | 2024-02-27 08:54 | OP.CCLET_ITS ---
02/27/2024 Johnny Shahid Re : Upper GI endoscopy procedure for Deidra Gonzalez Zehra This procedure was performed on Tuesday, February 27, 2024. My impressions and recommendations are as follows: Impressions : - Z-line variable, 40 cm from the incisors. - Normal examined duodenum. - Erythematous mucosa in the antrum. Biopsied. - Erythematous mucosa in the cardia. Treated with a heater probe. Biopsied. Recommendations : - Await pathology results. - Discharge patient to home. - Resume previous diet. - Await pathology results. - Use Prilosec (omeprazole) 40 mg PO daily. - Use sucralfate tablets 1 gram PO QID. - Continue present medications. My findings are described in the full procedure note, which is enclosed. If I can be of further assistance, please feel free to contact me at Doctor phone number(s): , Work: . Sincerely, MD Harleen Parry MD 02/27/2024 8:53:44 AM This report has been signed electronically.
[2024-02-27 08:55] VITALS: BP 142/55; BP 165/72; PULSE 86; RESP 16; O2SAT 98
--- NOTE | 2024-02-27 08:57 | OP.COLON_ITS ---
Patient Name: Deidra Kamara Procedure Date: 02/27/2024 8:12 AM Date of : 1955 Age: 68 Procedure: Colonoscopy Indications: Positive Cologuard test Providers: Harleen Khan MD Referring MD: Johnny Shahid Medicines: Monitored Anesthesia Care Patient Profile: This is a 68 year old female. Last Colonoscopy: none. The patient's first colonoscopy is today. Complications: No immediate complications. Procedure: Pre-Anesthesia Assessment: - Prior to the procedure, a History and Physical was performed, and patient medications and allergies were reviewed. The patient's tolerance of previous anesthesia was also reviewed. The risks and benefits of the procedure and the sedation options and risks were discussed with the patient. All questions were answered, and informed consent was obtained. Prior Anticoagulants: The patient has taken no anticoagulant or antiplatelet agents except for aspirin. ASA Grade Assessment: Per anesthesia. After reviewing the risks and benefits, the patient was deemed in satisfactory condition to undergo the procedure. After I obtained informed consent, the scope was passed under direct vision. Throughout the procedure, the patient's blood pressure, pulse, and oxygen saturations were monitored continuously. The colonoscope was introduced through the anus and advanced to the cecum, identified by appendiceal orifice and ileocecal valve. The colonoscopy was performed without difficulty. The patient tolerated the procedure well. The quality of the bowel preparation was good. Scope In: 8:12:44 AM Scope Withdrawal Time 0 hours 27 minutes 9 seconds Scope Out: 8:46:05 AM Total Procedure Duration Time 0 hours 33 minutes 21 seconds Findings: Hemorrhoids were found on perianal exam. Non-bleeding internal hemorrhoids were found. The hemorrhoids were Grade I (internal hemorrhoids that do not prolapse). Two sessile polyps were found in the descending colon. The polyps were less than 5 mm in size. These polyps were removed with a cold biopsy forceps. Resection and retrieval were complete. Five semi-pedunculated polyps were found in the rectum. The polyps were less than 5 mm in size. These polyps were removed with a hot snare. Resection and retrieval were complete. The exam was otherwise without abnormality. Impression: - Hemorrhoids found on perianal exam. - Non-bleeding internal hemorrhoids. - Two less than 5 mm polyps in the descending colon, removed with a cold biopsy forceps. Resected and retrieved. - Five less than 5 mm polyps in the rectum, removed with a hot snare. Resected and retrieved. - The examination was otherwise normal. Recommendation: - Discharge patient to home. - Resume previous diet. - Continue present medications. - Repeat colonoscopy in 3 years for surveillance of multiple polyps. - Await pathology results. Procedure Code(s): --- Professional --- 86220, Colonoscopy, flexible; with removal of tumor(s), polyp(s), or other lesion(s) by snare technique 64579, 59, Colonoscopy, flexible; with biopsy, single or multiple Diagnosis Code(s): --- Professional --- K64.0, First degree hemorrhoids D12.4, Benign neoplasm of descending colon D12.8, Benign neoplasm of rectum R19.5, Other fecal abnormalities CPT copyright 2021 [employer]. All rights reserved. The codes documented in this report are preliminary and upon anesthesia resident review may be revised to meet current compliance requirements. MD Harleen Parry MD 02/27/2024 8:57:13 AM This report has been signed electronically. Number of Addenda: 0 Note Initiated On: 02/27/2024 8:12 AM
--- NOTE | 2024-02-27 08:57 | OP.CCLET_ITS ---
02/27/2024 Johnny Shahid Re : Colonoscopy procedure for Deidra Kamara Deapepito Shahid This procedure was performed on Tuesday, February 27, 2024. My impressions and recommendations are as follows: Impressions : - Hemorrhoids found on perianal exam. - Non-bleeding internal hemorrhoids. - Two less than 5 mm polyps in the descending colon, removed with a cold biopsy forceps. Resected and retrieved. - Five less than 5 mm polyps in the rectum, removed with a hot snare. Resected and retrieved. - The examination was otherwise normal. Recommendations : - Discharge patient to home. - Resume previous diet. - Continue present medications. - Repeat colonoscopy in 3 years for surveillance of multiple polyps. - Await pathology results. My findings are described in the full procedure note, which is enclosed. If I can be of further assistance, please feel free to contact me at Doctor phone number(s): , Work: . Sincerely, MD Harleen Parry MD 02/27/2024 8:57:13 AM This report has been signed electronically.
[2024-02-27 09:00] VITALS: BP 158/62; BP 165/72; PULSE 88; RESP 16; O2SAT 97
[2024-02-27 09:15] VITALS: BP 158/65; BP 165/72; PULSE 83; RESP 16; TEMP 36.1; O2SAT 98
[2024-02-27 09:36] VITALS: BP 165/72
== END 2024-02-27 09:42 | disposition home or self-care (01) ==
LOC: EN 06:24 → AC 06:25
PROVIDERS: PCP Family Medicine; Referring Provider Family Medicine; Visit Provider Surgery
PROC: 0DJD8ZZ Inspection of Lower Intestinal Tract, Via Natural or Artificial Opening Endoscopic (ICD-10-PCS; CPT 45378; principal; 2024-02-27 07:55)
DX: D12.4 Benign neoplasm of descending colon (principal); Z79.4 Long term (current) use of insulin; E11.9 Type 2 diabetes mellitus without complications; K21.9 Gastro-esophageal reflux disease without esophagitis; Z79.84 Long term (current) use of oral hypoglycemic drugs; E03.9 Hypothyroidism, unspecified; E78.00 Pure hypercholesterolemia, unspecified; I10 Essential (primary) hypertension; K64.0 First degree hemorrhoids; Z79.82 Long term (current) use of aspirin; Z87.891 Personal history of nicotine dependence; Z79.899 Other long term (current) drug therapy; Z79.890 Hormone replacement therapy; K64.4 Residual hemorrhoidal skin tags; K29.70 Gastritis, unspecified, without bleeding; D13.1 Benign neoplasm of stomach; D12.8 Benign neoplasm of rectum; Z79.85 Long-term (current) use of injectable non-insulin antidiabetic drugs; Z90.49 Acquired absence of other specified parts of digestive tract
CPT/HCPCS: 45380; 43239; 45385; 43255; 82962; 88305; 88342; J7120; J2405

== ENCOUNTER → 2025-03-16 | Outpatient (CLI) | payer OTHER, SELFPAY ==
[2025-03-16 10:13] LABS: Absolute Lymphocyte Count 1.36 X10^3/uL (0.83-4.51); Absolute Neutrophil Count 4.8 X10^3/uL (2.0-7.7); Basophil# 0.04 X10^3/uL; Basophil% 0.6 % (0-1); Eosinophil# 0.12 X10^3/uL; Eosinophils% 1.7 % (0-5); Hematocrit 38.2 % (37-47); Hemoglobin 12.7 g/dL (12.0-15.0); Lymphocyte # 1.36 X10^3/ul (0.83-4.51); Lymphocyte % 19.7 % (19-41); Mean Corp Hgb Conc 33.2 g/dL (32-36); Mean Corpuscular Hgb 28.7 pg (27.0-32.0); Mean Corpuscular Volume 86.4 fL (81-99); Mean Platelet Vol. 10.2 fl (6.2-12.0); Monocyte# 0.49 X10^3/uL; Monocyte% 7.1 % (0-10); NRBC Flagged by Analyzer 0 % (0-5); Neutrophil # 4.82 X10^3/uL (2.7-7.7); Platelet Count 200 K/mm3 (150-450); RBC Distribution Width CV 13.3 % (11.6-14.6); RBC Distribution Width SD 41.4 fl (35.1-43.9); Red Blood Count 4.42 M/mm3 (4.2-5.4); White Blood Count 6.9 K/mm3 (4.4-11.0)
[2025-03-16 10:45] LABS: Magnesium 1.9 mg/dL (1.5-2.2); Uric Acid 4.3 mg/dL (2.6-6.0)
[2025-03-16 11:00] LABS: ALB/GLOB Ratio 1.1 RATIO (0.9-2.4); AST(SGOT) 20 U/L (<=31); Alanine Aminotransfer ALT/SGPT 16 U/L (<=34); Albumin, Serum 3.4 g/dL (3.4-4.8); Alkaline Phosphatase 92 U/L (35-104); Anion Gap 11 (5-15); BUN 20 mg/dL (4-19); BUN/Creat Ratio 23.1 RATIO (10-20); Calcium,Total 9.2 mg/dL (7.6-11.0); Carbon Dioxide 23.8 mmol/L (21.0-32.0); Chloride 103 mmol/L (98-108); Cholesterol 184 mg/dL (<=200); Creatinine, Serum 0.85 mg/dL (0.70-1.20); EST Glomerular Filtration Rate 73 (>60); Globulin 3.1 g/dL (2.2-4.2); Glucose 340 mg/dL (70-99); High Density Lipoprotein 42 mg/dL; Low Density Lipoprotein Calc. 109 mg/dL; Potassium 4.4 mmol/L (3.3-5.1); Protein, Total 6.5 g/dL (5.9-8.4); Sodium Level 138 mmol/L (133-145); Total Bilirubin 0.28 mg/dL (0.00-1.30); Triglycerides 165 mg/dL; Very Low Density Lipoprotein 33 mg/dL (5-40); cholesterol:hdl ratio screen 4.37
[2025-03-16 11:03] LABS: Thyroid Stim Hormone (TSH) 0.424 uIU/mL (0.300-4.200); Vitamin D,25 Hydroxy 30.3 ng/mL (30-100)
== END | disposition home or self-care (01) ==
LOC: LAB 09:43
PROVIDERS: Nurse Practitioner Family; PCP Family Medicine; Referring Provider Registered Nurse; Visit Provider Registered Nurse
DX: E78.2 Mixed hyperlipidemia (principal); E11.9 Type 2 diabetes mellitus without complications; K21.9 Gastro-esophageal reflux disease without esophagitis; M1A.09X0 Idiopathic chronic gout, multiple sites, without tophus (tophi); E03.9 Hypothyroidism, unspecified; I10 Essential (primary) hypertension; D69.6 Thrombocytopenia, unspecified
CPT/HCPCS: 36415; 80053; 80061; 82043; 82306; 82570; 83735; 84439; 84443; 84550; 85025